=== PATIENT | male | born 1955 | race Caucasian/White ===

== ENCOUNTER 2020-02-26 10:38 | Outpatient (CLI) | payer SELFPAY ==
[2020-02-26 10:48] LABS: Basophils Absolute Auto 0.03 K/mm3 (0.00-0.10); Basophils Percent Auto 0.5 % (0.0-1.0); Eosinophils Absolute Auto 0.19 K/mm3 (0.02-0.50); Eosinophils Percent Auto 3.1 % (1.0-6.0); Hematocrit 41.5 % (37.0-46.0); Hemoglobin 13.8 g/dL (12.4-15.3); Immature Granulocyte Absolute 0.01 K/mm3 (0.00-0.00); Immature Granulocyte Percent A 0.2 % (0.0-0.0); Lymphocytes Absolute Auto 1.56 K/mm3 (1.10-4.50); Lymphocytes Percent Auto 25.1 % (18.0-42.0); Mean Corpuscular HGB Conc 33.3 g/dL (32.0-36.0); Mean Corpuscular Hemoglobin 30.3 pg (27.0-31.0); Mean Platelet Volume 10.9 fl (8.7-11.0); Monocytes Percent Auto 6.4 % (2.0-11.0); Neutrophils Percent Auto 64.7 % (50.0-70.0); Platelet Count Result 252 K/mm3 (150-420); Red Blood Count 4.56 M/mm3 (4.70-6.10); Red Cell Distribution Width 13.2 % (11.6-14.4); White Blood Count 6.2 K/mm3 (4.8-10.8)
[2020-02-26 12:04] LABS: Alanine Aminotransferase 29 U/L (16-63); Albumin Level 4.3 g/dL (3.4-5.0); Alkaline Phosphatase 56 U/L (46-116); Anion Gap 10 mmol/L (8-16); Aspartate Amino Transferase 14 U/L (15-37); Bilirubin,Total 0.8 mg/dL (0.00-1.00); Blood Urea Nitrogen 28 mg/dL (7-18); Calcium 9.2 mg/dL (8.5-10.1); Carbon Dioxide 27 mmol/L (21-32); Chloride 102 mmol/L (98-108); Cholesterol 147 mg/dL (0-200); Estimated Glomerular Filt Rate > 60; Glucose 95 mg/dL (70-99); HDL Direct 43 mg/dL (40-60); LDL Cholesterol Calculated 80 mg/dL (<130); Osmolality Calculated 293 mOsm/kg (285-295); Potassium 4.4 mmol/L (3.5-5.1); Sodium 139 mmol/L (136-145); Total Protein 6.9 g/dL (6.4-8.2); Triglycerides 122 mg/dL (0-150); Uric Acid 6.8 mg/dL (3.5-7.2)
[2020-02-26 12:16] LABS: Thyroid Stimulating Hormone Reflex 0.81 u/IU/mL (0.36-3.74)
== END 2020-02-26 10:39 | disposition home or self-care (01) ==
PROVIDERS: PCP Family Medicine; Visit Provider Family Medicine
DX: I10 Essential (primary) hypertension (principal); M10.9 Gout, unspecified; E78.5 Hyperlipidemia, unspecified
CPT/HCPCS: 36415; 80053; 80061; 84443; 84550; 85025

== ENCOUNTER 2020-10-13 08:38 | Emergency (ER) | payer SELFPAY ==
--- NOTE | ~2020-10-13 | CT_ITS ---
EXAMINATION: CT abdomen pelvis w con DATE: 10/13/2020 10:14 INDICATION: Left lower quadrant abdominal pain TECHNIQUE: Computed tomography (CT) of the abdomen and pelvis was performed with 100 mL Omnipaque-350 intravenous contrast. Automated exposure control and iterative reconstruction technique were employe d. The dose-length product was 547.15 mGy-cm. COMPARISON: 11/10/2016 FINDINGS: Mild bronchiectasis in the bilateral lower lobes. Heart size is normal. No pericardial or pleural eff usion. Liver and bilateral adrenal glands are normal. Tiny intraluminal density in the gallbladder li shanell representing a gallstone. The contour at the fundus of the gallbladder suggests an additional ga llstone. No gallbladder wall thickening or cholecystic inflammatory change to suggest acute cholecyst itis. Multiple <5 mm low-attenuation lesions scattered throughout the spleen which could represent cy sts, hemangiomas or granulomatous disease. Likely benign 9 mm lesion at the tip of the pancreas, unch anged in size since 2017 and now with rim calcification. Bilateral low-attenuation renal cysts measur ing 4 cm on the left and 1 cm on the right. A couple small regions of cortical scarring at the upper pole of the right kidney likely sequela of prior infection or infarction. Small gas-filled duodenal d iverticulum arising from the second portion of the duodenum along the posterior margin of the head of the pancreas. Numerous diverticula along the descending and sigmoid colon. There is prominent inflam matory stranding surrounding a diverticulum at the junction of the descending and sigmoid colon consi stent with diverticulitis. No abscess or free intraperitoneal gas or fluid. Small bowel and appendix are normal. Bladder is normal. Prostatomegaly suggested however visualization is poor due to prominen t metallic streak artifact in the lower pelvis pelvis related internal fixation at the proximal right femur, across the bilateral superior pubic rami and around the left acetabulum related to old healed fractures. Additional metallic streak artifact more cephalad in the pelvis related to screw fixation s across the bilateral sacroiliac joints. Small fat-containing left inguinal hernia. No pathologicall y enlarged abdominal or pelvic lymphadenopathy. Severe lumbar spondylosis. IMPRESSION: 1. Radiographically uncomplicated diverticulitis. 2. Cholelithiasis. 3. Prostatomegaly. Reviewed, dictated and finalized at location A.
[2020-10-13 08:45] VITALS: BP 143/71; PULSE 68; RESP 17; TEMP 36.7; O2SAT 98
--- NOTE | 2020-10-13 09:13 | ECG_ITS ---
Measurements Intervals [place] Rate: 60 P: 39 MT: 211 QRS: -19 QRSD: 126 T: -22 QT: 415 QTc: 415 Interpretive Statements SINUS RHYTHM WITH FIRST DEGREE AV BLOCK EARLY PRECORDIAL R/S TRANSITION POSSIBLE LEFT VENTRICULAR HYPERTROPHY ST-T WAVE ABNORMALITY IN INFERIOR LEADS- CONSIDER ISCHEMIA ABNORMAL ECG Electronically Signed On 10-13-2020 10:23:55 CDT by Jose Herrmann D.O.
[2020-10-13 09:20] LABS: Add Urine Microscopic? NO; Appearance Urine Clear (Clear); Bilirubin Urine Negative (Negative); Blood Urine Negative (Negative); Color Urine Light Yellow (Yellow); Glucose Urine UA Negative (Negative); Ketones Urine Negative (Negative); Leukocyte Esterase Ur Negative (Negative); Nitrate Urine Negative (Negative); Protein Urine Negative (Negative); Specific Grav Ur 1.025 (1.010-1.020); Urobilinogen Urine 0.2 mg/dL (0.2-1.0); pH Urine 5.5 (5.0-8.0)
[2020-10-13 09:31] LABS: Basophils Absolute Auto 0.03 K/mm3 (0.00-0.10); Basophils Percent Auto 0.3 % (0.0-1.0); Eosinophils Absolute Auto 0.17 K/mm3 (0.02-0.50); Eosinophils Percent Auto 1.7 % (1.0-6.0); Hematocrit 38.1 % (37.0-46.0); Hemoglobin 12.7 g/dL (12.4-15.3); Immature Granulocyte Absolute 0.03 K/mm3 (0.00-0.00); Immature Granulocyte Percent A 0.3 % (0.0-0.0); Lymphocytes Absolute Auto 1.27 K/mm3 (1.10-4.50); Lymphocytes Percent Auto 12.6 % (18.0-42.0); Mean Corpuscular HGB Conc 33.3 g/dL (32.0-36.0); Mean Corpuscular Hemoglobin 30.1 pg (27.0-31.0); Mean Corpuscular Volume 90.3 fL (78.0-102.0); Mean Platelet Volume 10.4 fl (8.7-11.0); Monocytes Absolute Auto 0.67 K/mm3 (0.10-0.90); Monocytes Percent Auto 6.6 % (2.0-11.0); Neutrophils Absolute Auto 7.9 K/mm3 (1.7-7.2); Neutrophils Percent Auto 78.5 % (50.0-70.0); Platelet Count Result 233 K/mm3 (150-420); Red Blood Count 4.22 M/mm3 (4.70-6.10); Red Cell Distribution Width 13.5 % (11.6-14.4); White Blood Count 10.1 K/mm3 (4.8-10.8)
[2020-10-13 09:46] LABS: Partial Thromboplastin Time 29.1 SEC (23.90-30.70); Prothrombin Time 10.4 Seconds (9.50-12.10)
[2020-10-13 09:52] LABS: Lactic Acid Reflex 1.6 mmol/L (0.4-2.0)
[2020-10-13 09:53] LABS: Alanine Aminotransferase 27 U/L (16-63); Albumin Level 3.7 g/dL (3.4-5.0); Alkaline Phosphatase 83 U/L (46-116); Anion Gap 13 mmol/L (8-16); Aspartate Amino Transferase 18 U/L (15-37); Bilirubin,Total 0.5 mg/dL (0.00-1.00); Blood Urea Nitrogen 22 mg/dL (7-18); Calcium 9.1 mg/dL (8.5-10.1); Carbon Dioxide 25 mmol/L (21-32); Chloride 101 mmol/L (98-108); Estimated Glomerular Filt Rate > 60; Glucose 102 mg/dL (70-99); Lipase 79 U/L (73-393); NT Pro B Type Natriuretic Pept 58 pg/mL (0-125); Osmolality Calculated 291 mOsm/kg (285-295); Potassium 3.9 mmol/L (3.5-5.1); Sodium 139 mmol/L (136-145); Total Protein 7.2 g/dL (6.4-8.2)
--- NOTE | 2020-10-13 10:52 | ED.ABDPAIN ---
HPI - Abdominal Pain General Chief Complaint: Abdominal Pain Stated Complaint: ABD PAIN Source: patient Mode of arrival: ambulatory History of Present Illness HPI narrative: this is a 64-year-old gentleman with past medical history Of CHF, presents with left lower quadrant pain is been going on for the last 3 days off and on currently is pain levels about a 2 or 3/10 peers comfortable with no nausea vomiting no fever chills no diarrhea or constipation no dysuria no hematuria. the pain localized to the left lower quadrant with no radiation no chest pain no shortness of breath. MD elicited complaint: abdominal pain Pertinent past history: diverticulitis Onset (ago): day(s) Pain Consistency: intermittent Location: LLQ Severity: mild Related Data Home Medications Medication Instructions Recorded Confirmed ibuprofen 200 mg-diphenhydramine 1 cap PO ONCE PRN 11/05/19 10/13/20 HCl 25 mg capsule aspirin 81 mg tablet,delayed 81 mg PO DAILY 06/24/20 10/13/20 release Allergies Allergy/AdvReac Type Severity Reaction Status Date / Time No Known Allergies Allergy Verified 06/24/20 08:16 Review of Systems Review of Systems: All systems reviewed & are unremarkable except as noted in HPI and below PMFSH Past Medical History Medical History (Updated 10/13/20 @ 10:56 by Jose Inman MD) Aortic valve insufficiency CHF (congestive heart failure) Erectile dysfunction Genital warts Hyperlipidemia Hypertension Vitamin D deficiency Surgical History Surgical History History of meniscectomy of left knee Repair 2002 Family History Family History Mother Family history of type 2 diabetes mellitus Father Hypertension Brother Family history of coronary artery disease Mother Diabetes mellitus Father Hypertension Social History Social History Smoking status: Never smoker Alcohol intake: current Drinks per week: 2 Substance use: never Substance use type: does not use 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 Exam Const: General: no acute distress Orientation/consciousness: patient oriented x3 HENMT: Head: normal to inspection and contusion Eyes: Conjunctivae: conjunctivae normal Pupils: Equal, round and reactive pupils present EOM: EOMs intact bilaterally Neck: Neck: normal visual inspection, no lymphadenopathy and no meningeal signs Chest: Chest palpation & inspection: normal inspection of the chest Resp: Effort & Inspection: normal respiratory effort Auscultation: clear to auscultation bilaterally Cardio: Rate: regular rate Rhythm: regular rhythm GI: GI Palp: Yes Soft to palpation and Yes Tenderness to palpation present (GI) ( left lower quadrant) Percussion: Yes normal to percussion : Testes: Testes normal Back/Spine/Pelvis: Back: no CVA tenderness Skin: General skin exam: normal color Rashes: no rashes Neuro: General: patient oriented x3, moves all extremities, no meningeal signs and no focal motor deficits Extrem: General: normal to inspection and no pedal edema Psych: Appearance: grossly normal Affect: normal affect Attitude: cooperative Course Course Emergency Course: blood work and CT scan were reviewed with patient the patient declined any pain medication and advised the patient to take medication was sent to his pharmacy. And follow-up with primary care physician. Vital Signs Vital signs: Vital Signs Temperature 36.7 C 10/13/20 08:45 Pulse Rate 68 10/13/20 08:45 Respiratory Rate 17 10/13/20 08:45 Blood Pressure 143/71 H 10/13/20 08:45 Pulse Oximetry 98 10/13/20 08:45 Temperature 36.7 C 10/13/20 08:45 Pulse Rate 68 10/13/20 08:45 Respiratory Rate 17 10/13/20 08:45 Blood Pressure 143/71 H 10/13/20 08:45 Pulse Oximetry 98
[2020-10-13 11:05] VITALS: PULSE 65; O2SAT 99
== END 2020-10-13 11:05 | disposition home or self-care (01) ==
PROVIDERS: Emergency Provider Emergency Medicine; PCP Nurse Practitioner Family
DX: K57.92 Diverticulitis of intestine, part unspecified, without perforation or abscess without bleeding (principal)
CPT/HCPCS: 36415; 74177; 80053; 81003; 83605; 83690; 83880; 85025; 85610; 85730; 93005; 99283; 99284; Q9967

== ENCOUNTER 2021-08-27 20:50 | Emergency (ER) | payer SELFPAY ==
[2021-08-27 20:50] VITALS: BP 133/70; PULSE 100; RESP 20; TEMP 37; O2SAT 95
--- NOTE | 2021-08-27 21:14 | ED.EXTPRO ---
HPI - Extremity Problem General Chief complaint: Extremity Injury, Lower Stated complaint: rt knee pain Time Seen by Provider: 08/27/21 21:07 Source: patient and RN notes reviewed Mode of arrival: ambulatory Limitations: no limitations History of Present Illness Complaint: joint swelling (right knee) Onset (ago): day(s) (3) Pain Consistency: constant Location: right and knee Quality: burning, aching and dull Radiation: none Relieving factors: nothing Exacerbating factors: range of motion, weight bearing and walking Associated symptoms: denies other symptoms Related Data Home Medications Medication Instructions Recorded Confirmed aspirin 81 mg PO EVERY OTHER DAY 08/27/21 08/27/21 Allergies Allergy/AdvReac Type Severity Reaction Status Date / Time No Known Allergies Allergy Verified 10/29/20 07:15 Review of Systems Review of Systems: All systems reviewed & are unremarkable except as noted in HPI and below PMFSH Past Medical History Medical History (Updated 08/27/21 @ 22:11 by Frank Coffman MD) Aortic valve insufficiency CHF (congestive heart failure) Erectile dysfunction Genital warts Hyperlipidemia Hypertension Vitamin D deficiency Surgical History Surgical History History of meniscectomy of left knee Repair 2002 Family History Family History Mother Family history of type 2 diabetes mellitus Father Hypertension Brother Family history of coronary artery disease Mother Diabetes mellitus Father Hypertension Social History Social History Smoking status: Never smoker Alcohol intake: current Drinks per week: 2 Substance use: never Substance use type: does not use 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 Exam Const: General: healthy appearing, no acute distress and alert Nutritional Appearance: well nourished and thin Orientation/consciousness: patient oriented x3 HENMT: Head: normal to inspection Ears: external ears normal Eyes: Conjunctivae: conjunctivae normal Pupils: Equal, round and reactive pupils present EOM: EOMs intact bilaterally Neck: Neck: normal visual inspection Resp: Effort & Inspection: normal respiratory effort Auscultation: clear to auscultation bilaterally Cardio: Rate: regular rate Rhythm: regular rhythm GI: GI Palp: Yes Soft to palpation and No Tenderness to palpation present (GI) Auscultation: normal bowel sounds Back/Spine/Pelvis: Cervical Spine: cervical ROM normal Thoracic/Lumbar Spine: thoraco-lumbar ROM normal Skin: General skin exam: normal color Rashes: no rashes Neuro: General: patient oriented x3, moves all extremities, no meningeal signs, no focal motor deficits and CN's II-XI intact bilaterally Speech: normal speech Extrem: General: normal exam except as noted Right lower extremity: knee Details: tenderness Location: of the patella, swelling Location: of the patella and warmth Location: of the entire knee joint (with erythema) Psych: Appearance: grossly normal and well kempt Mental Status: mental status grossly normal Affect: normal affect Attitude: cooperative Thought content: Yes Normal thought content present Discharge Plan Discharge Clinical Impression: Gout Qualifiers: Gout site: knee Gout etiology: idiopathic Chronicity: acute Laterality: right Qualified Code(s): 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 Prescriptions: New indomethacin 75 mg capsule, extended release 75 mg PO DAILY Qty: 10 RF: 0 No Action aspirin 81 mg tablet,delayed release (DR/EC) 81 mg PO EVERY OTHER DAY RF: 0 atorvastatin
[2021-08-27 21:35] LABS: Hematocrit 37.8 % (37.0-46.0); Hemoglobin 12.5 g/dL (12.4-15.3); Mean Corpuscular HGB Conc 33.1 g/dL (32.0-36.0); Mean Corpuscular Hemoglobin 30.6 pg (27.0-31.0); Mean Corpuscular Volume 92.6 fL (78.0-102.0); Mean Platelet Volume 11.1 fl (8.7-11.0); Platelet Count Result 236 K/mm3 (150-420); Red Blood Count 4.08 M/mm3 (4.70-6.10); Red Cell Distribution Width 13.7 % (11.6-14.4); White Blood Count 12.1 K/mm3 (4.8-10.8)
[2021-08-27 21:48] LABS: Uric Acid 8.7 mg/dL (3.5-7.2)
[2021-08-27 21:49] LABS: CRP < 0.2 mg/dL (0.0-0.9)
[2021-08-27] MEDS: KETOROLAC (*BKC) 60 MG/2 ML VIAL IM (21:59)
[2021-08-27 22:05] VITALS: BP 132/80; PULSE 98; RESP 20; TEMP 36.6; O2SAT 95
== END 2021-08-27 22:08 | disposition home or self-care (01) ==
LOC: CHSED 20:52
PROVIDERS: Emergency Provider Emergency Medicine; PCP Nurse Practitioner Family
DX: M10.061 Idiopathic gout, right knee (principal); I50.9 Heart failure, unspecified; E78.5 Hyperlipidemia, unspecified; I10 Essential (primary) hypertension
CPT/HCPCS: 36415; 84550; 85027; 86140; 96372; 99283; J1885

== ENCOUNTER 2022-10-18 09:20 | Outpatient (CLI) | payer MEDICARE, SELFPAY ==
[2022-10-18 09:34] LABS: Basophils Absolute Auto 0.04 K/mm3 (0.00-0.10); Basophils Percent Auto 0.5 % (0.0-1.0); Eosinophils Absolute Auto 0.17 K/mm3 (0.02-0.50); Eosinophils Percent Auto 2.3 % (1.0-6.0); Hematocrit 39.2 % (37.0-46.0); Immature Granulocyte Absolute 0.02 K/mm3 (0.00-0.00); Immature Granulocyte Percent A 0.3 % (0.0-0.0); Lymphocytes Absolute Auto 1.59 K/mm3 (1.10-4.50); Lymphocytes Percent Auto 21.8 % (18.0-42.0); Mean Corpuscular HGB Conc 33.2 g/dL (32.0-36.0); Mean Corpuscular Hemoglobin 30.3 pg (27.0-31.0); Mean Corpuscular Volume 91.4 fL (78.0-102.0); Mean Platelet Volume 10.8 fl (8.7-11.0); Monocytes Absolute Auto 0.39 K/mm3 (0.10-0.90); Monocytes Percent Auto 5.3 % (2.0-11.0); Neutrophils Absolute Auto 5.1 K/mm3 (1.7-7.2); Neutrophils Percent Auto 69.8 % (50.0-70.0); Platelet Count Result 246 K/mm3 (150-420); Red Blood Count 4.29 M/mm3 (4.70-6.10); Red Cell Distribution Width 13.8 % (11.6-14.4); White Blood Count 7.3 K/mm3 (4.8-10.8)
[2022-10-18 10:24] LABS: Alanine Aminotransferase 30 U/L (16-63); Alkaline Phosphatase 85 U/L (46-116); Anion Gap 9 mmol/L (8-16); Aspartate Amino Transferase 18 U/L (15-37); Bilirubin,Total 0.7 mg/dL (0.00-1.00); Blood Urea Nitrogen 19 mg/dL (7-18); Calcium 9.1 mg/dL (8.5-10.1); Carbon Dioxide 28 mmol/L (21-32); Chloride 104 mmol/L (98-108); Cholesterol 170 mg/dL (0-200); Estimated Glomerular Filt Rate > 60; Glucose 93 mg/dL (70-99); HDL Direct 40 mg/dL (40-60); LDL Cholesterol Calculated 78 mg/dL (<130); NT Pro B Type Natriuretic Pept 44 pg/mL (0-125); Osmolality Calculated 294 mOsm/kg (285-295); Potassium 4.1 mmol/L (3.5-5.1); Sodium 141 mmol/L (136-145); Total Protein 7.1 g/dL (6.4-8.2); Triglycerides 258 mg/dL (0-150)
[2022-10-23 06:43] LABS: Vitamin D 25 Hydroxy 37 ng/mL (30-100)
== END 2022-10-18 09:21 | disposition home or self-care (01) ==
LOC: CHSLAB 09:23
PROVIDERS: PCP Nurse Practitioner Family; Visit Provider Nurse Practitioner Family
DX: I10 Essential (primary) hypertension (principal); E78.5 Hyperlipidemia, unspecified; E55.9 Vitamin D deficiency, unspecified; Z79.899 Other long term (current) drug therapy; I50.9 Heart failure, unspecified
CPT/HCPCS: 36415; 80053; 80061; 82306; 83880; 85025

== ENCOUNTER 2023-03-29 13:06 | Outpatient (NON) | payer MEDICARE, SELFPAY | END 2023-03-29 13:07 | disposition home or self-care (01) | LOC: CHSLAB 13:08 | PROVIDERS: Visit Provider Family Medicine | DX: D48.5 Neoplasm of uncertain behavior of skin (principal) | CPT/HCPCS: 88305 ==

== ENCOUNTER 2024-02-07 08:39 | Emergency (ER) | payer MEDICARE, SELFPAY ==
--- NOTE | ~2024-02-07 | XR_ITS ---
EXAMINATION: XR foot LT min 3V DATE: 02/07/2024 09:25 INDICATION: Generalized left foot pain TECHNIQUE: Dorsoplantar, two oblique and lateral views of the left foot were obtained. COMPARISON: None. FINDINGS: First tarsal metatarsal arthrodesis fixed with 2 screws. Old healed fractures at the necks of the lef t second-fourth metatarsals. There is also flattening of the articular surface at the head of the sec ond metatarsal consistent with chronic osteonecrosis/Freiberg's infraction. Polyarticular osteoarthri tis, moderate severity at the second tarsal metatarsal, first metatarsophalangeal and third proximal interphalangeal joints and mild at majority the remaining joints in the left foot. Small Achilles hubert caneal spur. Mild soft tissue swelling over the dorsum of the foot. IMPRESSION: 1. First tarsal metatarsal arthrodesis with screw fixation and old healed fractures of the necks of t he second-fourth metatarsal. No acute osseous abnormality. 2. Mild to moderate polyarticular osteoarthritis in the left foot. Reviewed, dictated and finalized at location A. IMPRESSION: 1. First tarsal metatarsal arthrodesis with screw fixation and old healed fract ures of the necks of the second-fourth metatarsal. No acute osseous abnormality . 2. Mild to moderate polyarticular osteoarthritis in the left foot.
[2024-02-07 08:44] VITALS: BP 129/71; PULSE 61; RESP 20; TEMP 36.6; O2SAT 96
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
[2024-02-07 09:31] LABS: Basophils Absolute Auto 0.03 K/mm3 (0.00-0.10); Basophils Percent Auto 0.3 % (0.0-1.0); Eosinophils Absolute Auto 0.53 K/mm3 (0.02-0.50); Eosinophils Percent Auto 5.3 % (1.0-6.0); Hematocrit 37.3 % (37.0-46.0); Hemoglobin 12.5 g/dL (12.4-15.3); Immature Granulocyte Absolute 0.01 K/mm3 (0.00-0.00); Immature Granulocyte Percent A 0.1 % (0.0-0.0); Lymphocytes Absolute Auto 1.23 K/mm3 (1.10-4.50); Lymphocytes Percent Auto 12.3 % (18.0-42.0); Mean Corpuscular HGB Conc 33.5 g/dL (32-36); Mean Corpuscular Hemoglobin 30.4 pg (27.0-31.0); Mean Corpuscular Volume 90.8 fL (78.0-102.0); Mean Platelet Volume 10.8 fl (8.7-11.0); Monocytes Absolute Auto 0.55 K/mm3 (0.10-0.90); Monocytes Percent Auto 5.5 % (2.0-11.0); Neutrophils Absolute Auto 7.63 K/mm3 (1.70-7.20); Neutrophils Percent Auto 76.5 % (50.0-70.0); Platelet Count Result 254 K/mm3 (150-420); Red Blood Count 4.11 M/mm3 (4.70-6.10); Red Cell Distribution Width 14.1 % (11.6-14.4)
[2024-02-07 09:55] LABS: Lactic Acid Reflex 1.2 mmol/L (0.4-2.0)
[2024-02-07 10:01] LABS: Alanine Aminotransferase 21 U/L (16-63); Albumin Level 3.4 g/dL (3.4-5.0); Alkaline Phosphatase 107 U/L (46-116); Anion Gap 7 mmol/L (4-12); Aspartate Amino Transferase 12 U/L (15-37); Bilirubin,Total 0.7 mg/dL (0.00-1.00); Blood Urea Nitrogen 24 mg/dL (7-18); Calcium 9.3 mg/dL (8.5-10.1); Carbon Dioxide 28 mmol/L (21-32); Chloride 101 mmol/L (98-108); Estimated CRCL calculation 54 ml/min; Estimated Glomerular Filt Rate > 60; Glucose 112 mg/dL (70-99); Osmolality Calculated 287 mOsm/kg (285-295); Potassium 4.3 mmol/L (3.5-5.1); Sodium 136 mmol/L (136-145); Total Protein 7.3 g/dL (6.4-8.2)
[2024-02-07 10:03] LABS: Uric Acid 7.8 mg/dL (3.5-7.2)
[2024-02-07 10:27] VITALS: BP 130/66; PULSE 72; RESP 20; TEMP 36.8; O2SAT 98
== END 2024-02-07 10:27 | disposition home or self-care (01) ==
PROVIDERS: Emergency Provider Internal Medicine Critical Care Medicine; PCP Nurse Practitioner Family
DX: M10.272 Drug-induced gout, left ankle and foot (principal); I11.0 Hypertensive heart disease with heart failure; I50.9 Heart failure, unspecified; E78.5 Hyperlipidemia, unspecified
CPT/HCPCS: 36415; 73630; 80053; 83605; 84550; 85025; 99283

== ENCOUNTER 2024-03-13 17:17 | Outpatient (CLI) | payer MEDICARE, SELFPAY ==
--- NOTE | ~2024-03-13 | XR_ITS ---
EXAMINATION: XR foot LT min 3V DATE: 03/13/2024 17:52 INDICATION: Left foot pain. TECHNIQUE: 4 views of left foot were obtained. COMPARISON: Left foot radiographs 02/07/2024 FINDINGS: Alignment is normal. No acute fracture. There are old healed fractures of the necks of the second, third, and fourth metatarsals. There are changes of fusion procedure of first tarsometatarsal joint with 2 screws. There is mild osteoarthritis of first metatarsophalangeal joint and some of the interphalangeal joints and midfoot joints. There are enthesophytes at the posterior and plantar aspe cts of calcaneal tuberosity. IMPRESSION: 1. Mild polyarticular osteoarthritis. 2. Fusion procedure of first tarsometatarsal joint. Reviewed, dictated and finalized at location A. CUSTOMIZER
--- NOTE | ~2024-03-13 | XR_ITS ---
EXAMINATION: XR hip LT min 2V DATE: 03/13/2024 17:52 INDICATION: Left hip pain. TECHNIQUE: 2 views of left hip were obtained. COMPARISON: None. FINDINGS: Alignment is normal. No fracture. Osteitis pubis is noted. There is plate and screw fixatio n of the pubic symphysis with fracture of the plate and one of the screws. There is plate-screw fixat ion of left acetabulum. There is screw fixation of the bilateral sacroiliac joints. There is severe l eft hip osteoarthritis. IMPRESSION: 1. Severe left hip osteoarthritis. 2. Fusion procedure of the pubic symphysis with hardware failure. Reviewed, dictated and finalized at location A. DEVELOPER
== END 2024-03-13 17:18 | disposition home or self-care (01) ==
PROVIDERS: PCP Family Medicine; Visit Provider Family Medicine
DX: M25.552 Pain in left hip (principal); M79.672 Pain in left foot; M19.072 Primary osteoarthritis, left ankle and foot; M16.12 Unilateral primary osteoarthritis, left hip; Z98.890 Other specified postprocedural states
CPT/HCPCS: 73502; 73630

== ENCOUNTER 2024-06-27 08:22 | Outpatient (CLI) | payer MEDICARE, SELFPAY ==
--- NOTE | ~2024-06-27 | NM_ITS ---
EXAMINATION: NM krissy stress w perfusion DATE: 06/27/2024 11:33 INDICATION: Encounter for preprocedural cardiac device for exam TECHNIQUE: Rest images were obtained following intravenous administration of 9.7 mCi Tc99m tetrofosmi n (Myoview). The patient was infused intravenously with Lexiscan (Regadenoson). Then, 29.8 mCi Tc99m tetrofosmin (Myoview) was administered intravenously, and stress images were obtained initially in th e supine position with repeat post stress imaging obtained in the prone position. Data was reconstruc charles into short axis and horizontal and vertical long axis SPECT images. Gated SPECT images were also obtained. COMPARISON: None. FINDINGS: There is decreased activity at the apex and along portions of the inferior and inferolatera l ware on both the rest and post stress imaging obtained in the supine position. Significant portion s of this normalize on the post stress imaging obtained in the prone position consistent with diaphra gmatic attenuation artifact. There is small region of residual mild decreased uptake along the apical inferior and mid inferolateral segments on the prone imaging and although could not exclude small in farct is more likely represents residual attenuation artifact. There is normal left ventricular rosales sukhjinder size, wall motion and ejection fraction. Left ventricular ejection fraction measures 62%. IMPRESSION: 1. Likely diaphragmatic attenuation artifact at the apex and along portions of the inferior and infer olateral ware on rest and post stress imaging obtained in the supine position which largely normaliz ed on the post stress imaging in the prone position. Residual small region of mild decreased activity at the apical inferior and mid inferolateral segments of likely represents residual attenuation brittany fact although small mild infarct is not absolutely excludable. 2. Left ventricular ejection fraction measuring 62%. Reviewed, dictated and finalized at location L. OR HOUSEKEEPER IMPRESSION: 1. Likely diaphragmatic attenuation artifact at the apex and along portions of the inferior and inferolateral ware on rest and post stress imaging obtained i n the supine position which largely normalized on the post stress imaging in th e prone position. Residual small region of mild decreased activity at the apica l inferior and mid inferolateral segments of likely represents residual attenua tion artifact although small mild infarct is not absolutely excludable. 2. Left ventricular ejection fraction measuring 62%.
--- NOTE | 2024-06-27 08:30 | ECHO_ITS ---
Patient Info Name: Amari Lorenzana Age: 68 years : 1955 Gender: Male Ht: 68 in Wt: 168 lbs BSA: 1.92 m2 HR: 62 bpm BP: 122 / 70 mmHg Technical Quality: Good Exam Date: 06/27/2024 9:03 AM Exam Location: Echo Lab Patient Status: Outpatient Admit Date: 06/27/2024 Staff Ordering Physician: Jose Herrmann DO Mineralogy Teacher: Aleah Tripathi RDCS Attending Provider: Jose Herrmann DO Referring Physician: Montez CARRINGTON; Exam Type: CA echo doppler color flow Study Info Indications - Dyspnea Complete two-dimensional, color flow and Doppler transthoracic echocardiogram is performed. Summary 1. Complete two-dimensional, color flow and Doppler transthoracic echocardiogram is performed. 2. Left ventricular chamber dimension is normal. 3. Left ventricular systolic function is normal, estimated at 60-65%. 4. There is moderate concentric increased left ventricular wall thickness. 5. The left ventricular diastolic function is grade I diastolic dysfunction. 6. E/e' 8 is minimally elevated. 7. There is moderate aortic valve sclerosis. 8. There is mild aortic valve regurgitation. 9. The mitral valve has mildly calcified annulus. 10. There is mild tricuspid valve regurgitation. 11. No pulmonary hypertension, estimated pulmonary arterial systolic pressure is 30 mmHg. 12. There is mild pulmonic regurgitation. 13. The aortic root size at the sinus of Valsalva is borderline dilated at 4.1 cm. Left Ventricle E/e' 8 is minimally elevated. Left ventricular chamber dimension is normal. Left ventricular systolic function is normal, estimated at 60-65%. There is moderate concentric increased left ventricular wall thickness. The left ventricular diastolic function is grade I diastolic dysfunction. Right Ventricle Right ventricular systolic function is normal and with normal TAPSE 2.0 cm. Right ventricular chamber dimension is normal. Left Atria Left atrial chamber dimension is normal. Right Atria Right atrial chamber dimension is normal. Aortic Valve The aortic valve is trileaflet. There is moderate aortic valve sclerosis. There is no aortic valve stenosis. There is mild aortic valve regurgitation. Pulmonic Valve There is mild pulmonic regurgitation. Mitral Valve The mitral valve has mildly calcified annulus. There is no mitral valve stenosis. There is no mitral valve regurgitation. Tricuspid Valve There is mild tricuspid valve regurgitation. No pulmonary hypertension, estimated pulmonary arterial systolic pressure is 30 mmHg. Pericardium/Pleural There is no pericardial effusion. Inferior Vena Cava Normal inferior vena cava with >50% collapse upon inspiration consistent with normal right atrial pressure, 5 mmHg. Aorta The aortic root size at the sinus of Valsalva is borderline dilated at 4.1 cm. Left Ventricular Outflow Tract Name Value Normal LVOT 2D LVOT Diameter 2.2 cm LVOT Doppler LVOT Peak Gradient 11 mmHg LVOT Mean Gradient 5 mmHg LVOT VTI 34 cm LVOT VTI/AV VTI Ratio 1.0 LVOT Stroke Volume 135 ml LVOT CO 24.2 l/min LVOT CI 12.6 l/min/m2 Pulmonic Valve Name Value Normal PV Doppler PV Peak Gradient 4 mmHg Mitral Valve Name Value Normal MV Doppler MV Decel Harper 385 cm/s2 MV PHT 51 ms MV Area (PHT) 4.3 cm2 4.0-5.0 MV Diastolic Function MV E Peak Velocity 68 cm/s MV A Peak Velocity 77 cm/s MV E/A 0.9 MV Decel Time 176 ms MV Annular TDI MV E/e' (Septal) 9.5 <=8.0 MV E/e' (Lateral) 7.7 <=8.0 MV E/e' (Average) 8.6 Tricuspid Valve Name Value Normal TV Regurgitation Doppler TR Peak Velocity 248 cm/s TR Peak Gradient 25 mmHg Estimated PAP/RSVP RA Pressure 5 mmHg <=5 PA Systolic Pressure 30 mmHg <36 RV Systolic Pressure 30 mmHg <36 Aorta Name Value Normal Ascending Aorta Ao Root Diameter (MM) 4.1 cm Ao Root Diam Index (MM) 2.1 cm/m2 Aortic Valve Name Value Normal AV Doppler AV Peak Velocity 171 cm/s AV Peak Gradient 12 mmHg AV Mean Gradient 5 mmHg AV VTI 34 cm AV Area (Cont Eq VTI) 3.9 cm2 >=3.0 AV Area (Cont Eq Aleksandr) 3.8 cm2 AV Regurgitation 2D LVOT Area 3.9 cm2 AV Regurgitation Doppler AR Decel Time 3,558 ms AR Decel Harper 114 cm/s2 AR PHT 1,032 ms Ventricles Name Value Normal LV Dimensions 2D/MM IVS Diastolic Thickness (2D) 1.5 cm 0.6-1.0 LVID Diastole (2D) 4.6 cm 4.2-5.8 LVIW Diastolic Thickness (2D) 1.3 cm 0.6-1.0 LVID Systole (2D) 3.2 cm 2.5-4.0 LVOT Diameter 2.2 cm LV Mass (2D Cubed) 258.86 g 88.00-224.00 LV Mass Index (2D Cubed) 135 g/m2 49-115 Relative Wall Thickness (2D) 0.58 LV Fractional Shortening/Ejection Fraction 2D/MM LV Fractional Shortening (2D) 31 % 25-43 LV EF (2D Teicholz) 58 % 52-72 LV Diastolic Volume (4C MOD) 147 ml LV EF (4C MOD) 65 % LV Diastolic Volume (2C MOD) 144 ml LV EF (2C MOD) 61 % LV Diastolic Volume (BP MOD) 148 ml 62-150 LV Diastolic Volume Index (BP MOD) 77 ml/m2 34-74 LV Systolic Volume (BP MOD) 56 ml 21-61 LV Systolic Volume Index (BP MOD) 29 ml/m2 11-31 LV EF (BP MOD) 63 % 52-72 LV Diastolic Length (4C) 9.0 cm LV Systolic Length (4C) 7.0 cm LV Stroke Volume (4C MOD) 96 ml Atria Name Value Normal LA Dimensions LA Volume (4C A-L) 37 ml LA Volume (BP A-L) 45 ml RA Dimensions RA Area (4C) 14.6 cm2 <=18.0 Report Signatures
--- OUTSIDE RECORDS SUMMARY | 2024-06-27 08:38 | XMS_ITS | Clinical Summary ---
Author Organization [facility] Address [address] [place] [address] Care Team Providers Care Mule Packer Name Role Phone Maria Del Carmen Rico MD Primary Care Provider Allergies No known active allergies Medications allopurinoL (ZYLOPRIM) 100 mg tablet Take 1 tablet (100 mg total) by mouth 2 (two) times a day 03/12/2024 Active aspirin 81 mg enteric coated tablet Take 1 tablet (81 mg total) by mouth daily Active atorvastatin (LIPITOR) 80 mg tablet Take 1 tablet (80 mg total) by mouth daily 04/21/2024 Active clobetasoL (TEMOVATE) 0.05 % cream APPLY 1 (ONE) GRAM AT BEDTIME 02/09/2024 Active furosemide (LASIX) 40 mg tablet Take 1 tablet (40 mg total) by mouth daily Active lisinopriL (PRINIVIL,ZESTR IL) 10 mg tablet Take 1 tablet (10 mg total) by mouth daily Active meloxicam (MOBIC) 15 mg tablet Take 1 tablet (15 mg total) by mouth daily 04/09/2024 Active metoprolol tartrate (LOPRESSOR) 75 mg tablet immediate release tablet Take 1 tablet (75 mg total) by mouth daily 04/22/2024 Active spironolactone (ALDACTONE) 25 mg tablet Take 1 tablet (25 mg total) by mouth daily Active Active Problems Problem Noted Date Diagnosed Date Right hip pain 06/14/2024 Primary osteoarthritis of right hip 06/14/2024 Aortic insufficiency 04/30/2024 Hyperlipidemia 04/30/2024 Hypertension 04/30/2024 Fracture of foot 11/12/2008 Fracture of pelvis 11/12/2008 Closed fracture of femur 11/12/2008 Carpal tunnel syndrome 11/12/2008 Encounters Date Type Department Care Team Description 06/14/2024 Orders Only [facility] Orthopaedic Surgery [address]th [place] [address] [place] [address] Jez Phillip MD Left hip pain (Primary Dx) 04/30/2024 2:58 PM DEVELOPER EVANGELIST - 04/30/2024 11:59 PM DEVELOPER EVANGELIST Hospital Encounter [facility] [address] [place] [address] [address] [place] [address] Left hip pain Discharge Disposition: Discharge to home or self care 04/30/2024 2:30 PM DEVELOPER EVANGELIST Office Visit [facility] Orthopaedic Surgery [address] [place] [address] [address] [place] [phone] Jerry Tolentino MD Left hip pain (Primary Dx); 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, initial encounter 04/30/2024 12:25 PM DEVELOPER EVANGELIST [facility] [address] [place] [address] Left hip pain 04/30/2024 12:01 PM DEVELOPER EVANGELIST - 04/30/2024 11:59 PM DEVELOPER EVANGELIST Hospital Encounter [facility] [address] [place] [address] [address] [place] [phone] Left hip pain Discharge Disposition: Discharge to home or self care 04/30/2024 Orders Only [facility] Orthopaedic Surgery [address] [place] [address] 4 [address] [place] [phone] Jerry Tolentino MD Left hip pain (Primary Dx) from Last 3 Months Social History Tobacco Use Types Packs/Day Years Used Date Smoking Tobacco: Never Smokeless Tobacco: Never Tobacco Cessation:Counseling Given: Not Answered Sex and Gender Information Value Date Recorded Sex Assigned at Not on file Legal Sex Male 1:00 PM DEVELOPER EVANGELIST Gender Identity Not on file Sexual Orientation Not on file Obstetrics History Last Filed Vital Signs Vital Sign Reading Time Taken Comments Blood Pressure - - Pulse - - Temperature - - Respiratory Rate - - Oxygen Saturation - - Inhaled Oxygen Concentration - - Weight 75.2 kg (165 lb 12.8 oz) 04/30/2024 1:42 PM DEVELOPER EVANGELIST Height 170.2 cm (5' 7 ) 04/30/2024 1:42 PM DEVELOPER EVANGELIST Body Mass Index 25.97 04/30/2024 1:42 PM DEVELOPER EVANGELIST Plan of Treatment Upcoming Encounters Date Type Department Care Team (Latest Contact Info) Description 08/07/2024 1:20 PM CDT Hospital Encounter [facility] Operating Room [address] [place] [address] Jerry Tolentino MD [address] [place] [address] 08/07/2024 1:20 PM CDT - 08/07/2024 4:00 PM CDT Surgery [facility] Operating Room [address] [place] [address] Jerry Tolentino MD [address] [place] [address] ARTHROPLASTY TOTAL HIP - LINDA ROBOTIC ARM - DERIAN Scheduled Procedures Name Priority Associated Diagnoses Date/Ti me ARTHROPLASTY TOTAL HIP - LINDA ROBOTIC ARM - DERIAN Right hip pain Primary osteoarthritis of right hip 08/07/2024 1:20 PM CDT Health Maintenance Due Date Last Done Comments Colon Cancer Screening-Colonoscopy 1955 Depression Screening 1955 Fall Risk Assessment 1955 Hepatitis C Screening 1955 Prostate Cancer Screening-PSA 1955 DTaP/Tdap/Td Vaccine (1 - Tdap) 1965 Hepatitis B Screening 1972 Pneumococcal vaccine 65+ (1 of 1 - PCV) 2004 Zoster Vaccine (1 of 2) 2004 Well Visit 65+ 11/24/2019 Influenza Vaccine (#1) 2023 Procedures Procedure Name Priority Date/Time Associated Diagnosis Comments XR SPINE LUMBAR 2 OR 3 VIEWS Schedule Routine, Read Routine (OP Routine) 04/30/2024 3:12 PM DEVELOPER EVANGELIST Left hip pain ERYTHROCYTE SEDIMENTATION RATE Routine 04/30/2024 12:38 PM DEVELOPER EVANGELIST Left hip pain CRP (ACUTE PHASE) Routine 04/30/2024 12: 38 PM DEVELOPER EVANGELIST Left hip pain XR HIP LEFT W PELVIS 2 OR 3 VIEWS Schedule Routine, Read Routine (OP Routine) 04/30/2024 12:19 PM DEVELOPER EVANGELIST Left hip pain from Last 3 Months Results * XR Spine Lumbar 2 or 3 Views (04/30/2024 3:12 PM DEVELOPER EVANGELIST) Anatomical Region Laterality Modality Spine N/A Computed Radiogr aphy 04/30/2024 4:23 PM DEVELOPER EVANGELIST Impressions 04/30/2024 5:12 PM DEVELOPER EVANGELIST Multilevel severe lumbar degenerative disc disease. Dictated by: Jennifer Patel MD The radiology attending physician has personally reviewed this study, and had reviewed and/or edited this written report and agrees with it. Electronically signed by: Agustin Banerjee D.O. Narrative 04/30/2024 5:12 PM DEVELOPER EVANGELIST EXAMINATION: XR SPINE LUMBAR 2 OR 3 VIEWS HISTORY: Left hip pain. COMPARISON: Same day pelvis radiographs FINDINGS: Upright and sitting lateral views of the lumbar spine were obtained. Redemonstration of fractured pubic symphysis screw. Straightening of the normal lumbar lordosis in seated position. No listhesis. Multilevel lumbar degenerative disc disease, greatest and severe at L1-L2 and L5-S1. Lower lumbar facet arthropathy. No acute compression fracture. Partially evaluated internal fixation of the sacrum, pelvis and right proximal femur. Vascular calcifications. Procedure Note Agustin Banerjee, DO - 04/30/2024 EXAMINATION: XR SPINE LUMBAR 2 OR 3 VIEWS HISTORY: Left hip pain. COMPARISON: Same day pelvis radiographs FINDINGS: Upright and sitting lateral views of the lumbar spine were obtained. Redemonstration of fractured pubic symphysis screw. Straightening of the normal lumbar lordosis in seated position. No listhesis. Multilevel lumbar degenerative disc disease, greatest and severe at L1-L2 and L5-S1. Lower lumbar facet arthropathy. No acute compression fracture. Partially evaluated internal fixation of the sacrum, pelvis and right proximal femur. Vascular calcifications. IMPRESSION: Multilevel severe lumbar degenerative disc disease. Dictated by: Jennifer Patel MD The radiology attending physician has personally reviewed this study, and had reviewed and/or edited this written report and agrees with it. Electronically signed by: Agustin Banerjee D.O. Jerry Tolentino MD IMG XR PROCEDURES Fi nal Result * (ABNORMAL) Erythrocyte sedimentation rate (04/30/2024 12:38 PM DEVELOPER EVANGELIST) Erythrocyte sedimentation rate 26(H) 1 - 20 mm/hr Blood 04/30/2024 12:3 8 PM DEVELOPER EVANGELIST 04/30/2024 12:52 PM DEVELOPER EVANGELIST Jerry Tolentino MD LAB BLOOD ORDERABLES Final Result Performing Organization Address [facility] Phone Number [facility] [address] [facility] [place] [address] * CRP (acute phase) (04/30/2024 12:38 PM DEVELOPER EVANGELIST) Pathologist [facility] CRP <3.0 <=10.0 mg/L Blood 04/30/2024 12:3 8 PM DEVELOPER EVANGELIST 04/30/2024 12:52 PM DEVELOPER EVANGELIST Jerry Tolentino MD LAB BLOOD ORDERABLES Final Result Performing Organization Address [facility] Phone Number [facility] [address] [facility] [place] [address] * XR Hip Left 2 or 3 Views W Pelvis (04/30/2024 12:19 PM DEVELOPER EVANGELIST) Anatomical Region Laterality Modality Lower Extremities, Hip, Pelvis Left C omputed Radiography 04/30/2024 12:3 1 PM DEVELOPER EVANGELIST Impressions 04/30/2024 12:31 PM DEVELOPER EVANGELIST 1. 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 2. 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 Electronically signed by: Miguelito Felton MD Narrative 04/30/2024 12:31 PM DEVELOPER EVANGELIST EXAMINATION: XR HIP LEFT 2 OR 3 VIEWS W PELVIS HISTORY: Hip pain. FINDINGS: No comparison. Chronic internally fixated left acetabular fracture transfixed by multiple posterior plate and screw constructs. Left acetabular hardware is intact. Chronic superior pubic ramus/pubic body fractures transfixed by superior plate and screw construct with fracture of the plate and one of the screws. Healed right femoral shaft fracture with partially visualized, intact medullary nail. Bilateral sacroiliac screw fixation with 3 intact screws. Severe left hip osteoarthritis. Large ossific fragment along the inferior left hip. Procedure Note Miguelito Felton MD - 04/30/2024 EXAMINATION: XR HIP LEFT 2 OR 3 VIEWS W PELVIS HISTORY: Hip pain. FINDINGS: No comparison. Chronic internally fixated left acetabular fracture transfixed by multiple posterior plate and screw constructs. Left acetabular hardware is intact. Chronic superior pubic ramus/pubic body fractures transfixed by superior plate and screw construct with fracture of the plate and one of the screws. Healed right femoral shaft fracture with partially visualized, intact medullary nail. Bilateral sacroiliac screw fixation with 3 intact screws. Severe left hip osteoarthritis. Large ossific fragment along the inferior left hip. IMPRESSION: 1. 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 2. 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 Electronically signed by: Miguelito Felton MD Jerry Tolentino MD IMG XR PROCEDURES Fi nal Result from Last 3 Months Insurance MEDICARE SOLUTIONS MEDICARE SOLUTIONS Care Teams Mule Packer Relationship Specialty Start Date End Date Maria Del Carmen Rico MD [address] [place] [id number] PCP - General Family Medicine 03/18/24
--- OUTSIDE RECORDS SUMMARY | 2024-06-27 08:38 | XMS_ITS | Referral Summary ---
Author Organization [facility] Address [address] [place] [address] Care Team Providers Care Assembly Supervisor Name Role Phone Maria Del Carmen Rico MD Primary Care Provider Encounters Date Type Department Care Team Description 06/14/2024 Orders Only [facility] Orthopaedic Surgery [address] [facility] 6th [place] [address] [place] [phone] Jez Phillip MD Left hip pain (Primary Dx) 04/30/2024 2:58 PM EDUCATION FINANCE PROCESSOR - 04/30/2024 11:59 PM EDUCATION FINANCE PROCESSOR Hospital Encounter [facility] [address] [place] [address] [address] [place] [address] Left hip pain Discharge Disposition: Discharge to home or self care 04/30/2024 Orders Only [facility] Orthopaedic Surgery [address] [place] [address] Medical Office Building [address] [place] [address] Jerry Tolentino MD Left hip pain (Primary Dx) 04/30/2024 12:25 PM EDUCATION FINANCE PROCESSOR Lab [facility] [address] [place] [address] Left hip pain 04/30/2024 12:01 PM EDUCATION FINANCE PROCESSOR - 04/30/2024 11:59 PM EDUCATION FINANCE PROCESSOR Hospital Encounter [facility] [address] [place] [address] [address] [place] [address] Left hip pain Discharge Disposition: Discharge to home or self care 04/30/2024 2:30 PM EDUCATION FINANCE PROCESSOR Office Visit [facility] Orthopaedic Surgery [address] [place] [address] Medical Office Building [address] [place] [phone] Jerry Tolentino MD Left hip pain (Primary Dx); 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, initial encounter from Last 3 Months Allergies No known active allergies Medications allopurinoL [...] of femur 11/12/2008 Carpal tunnel syndrome 11/12/2008 Social History Tobacco Use Types Packs/Day Years Used Date Smoking Tobacco: Never Smokeless Tobacco: Never Tobacco Cessation:Counseling Given: Not Answered Sex and Gender Information Value Date Recorded Sex Assigned at Not on file Legal Sex Male 1:00 PM EDUCATION FINANCE PROCESSOR Gender Identity Not on file Sexual Orientation Not on file Last Filed Vital Signs Vital Sign Reading Time Taken Comments Blood Pressure - - Pulse - - Temperature - - Respiratory Rate - - Oxygen Saturation - - Inhaled Oxygen Concentration - - Weight 75.2 kg (165 lb 12.8 oz) 04/30/2024 1:42 PM EDUCATION FINANCE PROCESSOR Height 170.2 cm (5' 7 ) 04/30/2024 1:42 PM EDUCATION FINANCE PROCESSOR Body Mass Index 25.97 04/30/2024 1:42 PM EDUCATION FINANCE PROCESSOR Plan of Treatment Upcoming Encounters Date Type Department Care Team (Latest Contact Info) Description 08/07/2024 1:20 PM CDT Hospital Encounter [facility] Operating Room [address] [place] [address] Jerry Tolentino MD [address] [place] [address] 08/07/2024 1:20 PM CDT - 08/07/2024 4:00 PM CDT Surgery [facility] Operating Room [address] [place] [address] Jerry Tolentino MD [address] [place] [address] ARTHROPLASTY TOTAL HIP - LINDA ROBOTIC ARM - DERIAN Scheduled Procedures Name Priority Associated Diagnoses Date/Ti me ARTHROPLASTY TOTAL HIP - LINDA ROBOTIC ARM - DERIAN Right hip pain Primary osteoarthritis of right hip 08/07/2024 1:20 PM CDT Procedures Procedure Name Priority Date/Time Associated Diagnosis Comments XR SPINE LUMBAR 2 OR 3 VIEWS Schedule Routine, Read Routine (OP Routine) 04/30/2024 3:12 PM EDUCATION FINANCE PROCESSOR Left hip pain ERYTHROCYTE SEDIMENTATION RATE Routine 04/30/2024 12:38 PM EDUCATION FINANCE PROCESSOR Left hip pain CRP (ACUTE PHASE) Routine 04/30/2024 12: 38 PM EDUCATION FINANCE PROCESSOR Left hip pain XR HIP LEFT W PELVIS 2 OR 3 VIEWS Schedule Routine, Read Routine (OP Routine) 04/30/2024 12:19 PM EDUCATION FINANCE PROCESSOR Left hip pain from Last 3 Months Results * XR Spine Lumbar 2 or 3 Views (04/30/2024 3:12 PM EDUCATION FINANCE PROCESSOR) Anatomical Region Laterality Modality Spine N/A Computed Radiogr aphy 04/30/2024 4:23 PM EDUCATION FINANCE PROCESSOR Impressions 04/30/2024 5:12 PM EDUCATION FINANCE PROCESSOR Multilevel severe lumbar degenerative disc disease. Dictated by: Jennifer Patel MD The radiology attending physician has personally reviewed this study, and had reviewed and/or edited this written report and agrees with it. Electronically signed by: Agustin Banerjee D.O. Narrative 04/30/2024 5:12 PM EDUCATION FINANCE PROCESSOR EXAMINATION: XR SPINE LUMBAR 2 OR 3 [...] right proximal femur. Vascular calcifications. Procedure Note Lavonne Agustin Emelia, DO - 04/30/2024 EXAMINATION: XR SPINE LUMBAR [...] it. Electronically signed by: Agustin Banerjee D.O. us Jerry Tolentino MD IMG XR PROCEDURES Fi nal Result * (ABNORMAL) Erythrocyte sedimentation rate (04/30/2024 12:38 PM EDUCATION FINANCE PROCESSOR) Erythrocyte sedimentation rate 26(H) 1 - 20 mm/hr Blood 04/30/2024 12:3 8 PM EDUCATION FINANCE PROCESSOR 04/30/2024 12:52 PM EDUCATION FINANCE PROCESSOR Jerry Tolentino MD LAB BLOOD ORDERABLES Final Result Performing Organization Address [facility] Co de Phone Number JACQUIE [facility] [address] [facility] [place] [address] * CRP (acute phase) (04/30/2024 12:38 PM EDUCATION FINANCE PROCESSOR) CRP <3.0 <=10.0 mg/L Blood 04/30/2024 12:3 8 PM EDUCATION FINANCE PROCESSOR 04/30/2024 12:52 PM EDUCATION FINANCE PROCESSOR Jerry Tolentino MD LAB BLOOD ORDERABLES Final Result Performing Organization Address [facility] Phone Number [facility]QUIE [facility] [address] [facility] [place] [address] * XR Hip Left 2 or 3 Views W Pelvis (04/30/2024 12:19 PM EDUCATION FINANCE PROCESSOR) Anatomical Region Laterality Modality Lower Extremities, Hip, Pelvis Left C omputed Radiography 04/30/2024 12:3 1 PM EDUCATION FINANCE PROCESSOR Impressions 04/30/2024 12:31 PM EDUCATION FINANCE PROCESSOR 1. 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 2. 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 Electronically signed by: Miguelito Felton MD Narrative 04/30/2024 12:31 PM EDUCATION FINANCE PROCESSOR EXAMINATION: XR HIP LEFT 2 OR 3 [...] Insurance MEDICARE SOLUTIONS MEDICARE SOLUTIONS Care Teams Assembly Supervisor Relationship Specialty Start Date End Date Maria Del Carmen Rico MD [address] [place], [place] [phone] PCP - General Family Medicine 03/18/24
--- OUTSIDE RECORDS SUMMARY | 2024-06-27 08:38 | XMS_ITS | Clinical Summary ---
Author Organization [facility] Address [facility] [place] [address] Care Team Providers Care Tool Crib Lead Name Role Phone Dandy Hoff MD Unavailable Unavail able Shin Gudino MD Primary Care Provider [phone] Suzanna Gregorio MD Unavailable Allergies No known active allergies Medications ciprofloxacin 500 MG tablet Take 1 tablet by mouth 2 (two) times daily. 0 11/13/2016 Active traMADol 50 MG tablet Take 1 tablet by mouth every 4 (four) hours as needed. 0 11/13/2016 Active metroNIDAZOLE 250 mg tablet Take 1 tablet by mouth every 8 (eight) hours. 0 11/13/2016 Active aspirin EC 81 MG EC tablet Take 81 mg by mouth daily. Active furosemide 40 MG tablet Take 40 mg by mouth daily. Active lisinopril 10 MG tablet Take 10 mg by mouth daily. Active spironolactone 25 MG tablet Take 25 mg by mouth daily. Active atorvastatin 40 MG tablet Take 40 mg by mouth daily. Active Active Problems Problem Noted Date Diagnosed Date Aortic insufficiency Hypertension Hyperlipidemia Family History Medical History Relation Comments Open Heart Brother Stroke Brother Hypertension Father Diabetes Mother Stroke Paternal Grandfather Relation Status Comments Brother Father Mother Paternal Grandfather Social History Tobacco Use Types Packs/Day Years Used Date Smoking Tobacco: Never Smokeless Tobacco: Never Alcohol Use Standard Drinks/Week Comments No 0 (1 standard drink = 0.6 oz pur e alcohol) Sex and Gender Information Value Date Recorded Sex Assigned at Not on file Legal Sex Male 8:49 PM CDT Gender Identity Not on file Sexual Orientation Not on file Last Filed Vital Signs Vital Sign Reading Time Taken Comments Blood Pressure 132/70 11/21/2016 12:21 PM CDT Pulse 75 11/21/2016 12:20 PM CDT Temperature - - Respiratory Rate 16 11/21/2016 12:20 PM CDT Oxygen Saturation - - Inhaled Oxygen Concentration - - Weight 80.3 kg (177 lb) 11/21/2016 12:20 PM CDT Height 175.3 cm (5' 9 ) 11/21/2016 12:20 PM CDT Body Mass Index 26.14 11/21/2016 12:20 PM CDT Plan of Treatment Health Maintenance Due Date Last Done Comments Colorectal Cancer Screening Colonoscopy (10 Years) 1955 Hepatitis C 1972 DTaP, Tdap and Td Vaccines ( 1 - Tdap) 1973 Zoster Vaccines (1 of 2) 2004 Pneumococcal Vaccine: 65+ Ye ars (1 of 1 - PCV) 11/24/2019 COVID-19 Vaccine (1 - 2023-2 5 season) 2023 Influenza Adult (#1) 2024 RSV Immunization or 60+ Years (1 - 1-dose 75+ series) 2029 Meningococcal B Vaccine Aged Out No l onger eligible based on patient's age to complete this topic Meningococcal Vaccine Aged Out No tank jaime eligible based on patient's age to complete this topic RSV Immunizations Under 20 Months Aged Out No longer eligible based on patient's age to complete this topic Care Teams Tool Crib Lead Relationship Specialty Start Date End Date Shin Gudino MD [address] [place] [address] PCP - General FAMILY PRACTICE 11/18/16 Dandy Hoff MD CARDIOVASCULAR DISEASE 11/18/16 Suzanna Gregorio [place] [address] [place] [place] [address] SURGERY 11/18/16
--- NOTE | 2024-06-27 08:52 | EST_ITS ---
Patient Info Name: Amari Lorenzana Age: 68 years : 1955 Gender: Male Ht: 68 in Wt: 168 lbs BSA: 1.92 m2 HR: 59 bpm BP: 143 / 57 mmHg Exam Date: 06/27/2024 10:48 AM Exam Location: Echo Lab Patient Status: Outpatient Admit Date: 06/27/2024 Staff Ordering Physician: Jose Herrmann DO Attending Provider: Jose Herrmann DO Exercise Technologist: Kenzie Herrera RDCS Exercise Physician: Jose Herrmann DO Exam Type: CA stress krissy w NM Study Info A regadenoson stress test was performed. Summary 1. 1. Negative lexiscan stress test for ischemic ST changes by ECG criteria. 2. 2. Baseline hypertension. 3. 3. Nuclear scan to follow and will be reported separately. Please correlate with it. 4. 4. Patient informed of the above results. Protocol: Lexiscan Stress ECG Details Stage: REST Duration (min): 0 min : 51 sec HR (bpm): 59 SBP (mmHg): 143 DBP (mmHg): 57 Stage: REST Duration (min): 11 min : 38 sec HR (bpm): 62 SBP (mmHg): 143 DBP (mmHg): 57 Stage: STAGE 1 Duration (min): 0 min : 59 sec HR (bpm): 70 SBP (mmHg): 135 DBP (mmHg): 58 Stage: RECOVERY Duration (min): 1 min : 0 sec HR (bpm): 89 SBP (mmHg): 135 DBP (mmHg): 58 Stage: RECOVERY Duration (min): 2 min : 0 sec HR (bpm): 84 SBP (mmHg): 135 DBP (mmHg): 58 Stage: RECOVERY Duration (min): 3 min : 0 sec HR (bpm): 81 SBP (mmHg): 160 DBP (mmHg): 57 Stage: RECOVERY Duration (min): 3 min : 8 sec HR (bpm): 79 SBP (mmHg): 160 DBP (mmHg): 57 Rest HR: 62 bpm Peak HR: 89 bpm Rest Sys BP: 143 mmHg Peak Sys BP: 160 mmHg Max Pred HR: 151 bpm % Max Pred HR: 59 % Target HR: 128 bpm Max RPP: 14,240 bpm*mmHg Termination Reason: Completed protocol Cardiac Symptoms: None Total Time: 1 min : 0 sec Rest Hay BP: 57 mmHg Peak Hay BP: 57 mmHg Total Dose: 0.4 mg Resting ECG Sinus rhythm, RBBB. Stress ECG No ST changes. Arrhythmias None. Report Signatures
== END 2024-06-27 08:23 | disposition home or self-care (01) ==
LOC: ANHCARD 08:25
PROVIDERS: PCP Family Medicine; Visit Provider Internal Medicine Cardiovascular Disease
DX: R06.09 Other forms of dyspnea (principal); Z01.810 Encounter for preprocedural cardiovascular examination
CPT/HCPCS: 78452; 93017; 93306; A9502; J2785

== ENCOUNTER 2024-07-26 11:10 | Outpatient (CLI) | payer MEDICARE, SELFPAY ==
--- NOTE | ~2024-07-26 | XR_ITS ---
Right foot Technique: AP, oblique, and lateral views were obtained. Clinical History: Gout Findings: No acute fracture or dislocation is seen. Osseous alignment is anatomic. There is mild oste oarthritic change at the first MTP joint. Soft tissues are unremarkable. Impression: Mild osteoarthritic change at the first MTP joint. Reviewed, dictated and finalized at [facility]. Impression: Mild osteoarthritic change at the first MTP joint.
--- OUTSIDE RECORDS SUMMARY | 2024-07-26 11:38 | XMS_ITS | Encounter Summary ---
Author Organization [facility] Address [address] [place] [address] Phone Care Team Providers Care Auger Supervisor Name Role Phone Maria Del Carmen Rico MD Primary Care Provider Encounter Details Date Type Department Care Team (Late st Contact Info) Description 07/25/2024 Orders Only [facility] [address] [facility] Advanced [facility] 6th [place] [address] [place] [id number] Jerry Tolentino MD [address] [place] [address] Social History Tobacco Use Types Packs/Day Years Used Date Smoking Tobacco: Never Smokeless Tobacco: Never AUDIT-C Answer Date Recorded Q1: How often do you have a drink containing alcohol? Never 07/08/2024 Q2: How many drinks containi ng alcohol do you have on a typical day when you are drinking? Patient does not drink Q3: How often do you have si x or more drinks on one occasion? Never 07/08/2024 Personal Safety Answer Date Recorded Have you ever been in or are you currently in a harmful physical or emotional relationship or is someone making you feel afraid or unsafe? Patient unable to answer 07/08/2024 Sex and Gender Information Value Date Recorded Sex Assigned at Not on file Legal Sex Male 1:00 PM NURSE ESTHETICIAN Gender Identity Not on file Sexual Orientation Not on file documented as of this encounter Ordered Prescriptions Prescription Sig Dispense Quantity Refills Last Filled Start Date End Date mupirocin (BACTROBAN) 2 % ointment Apply topically 2 (two) times a day for 5 days APPLY TO NOSTRILS TWICE A DAY. STARTING 5 DAYS PRIOR TO SURGERY. 22 g 07/25/2024 documented in this encounter Plan of Treatment Upcoming Encounters Date Type Department Care Team (Late st Contact Info) Description 08/07/2024 9:00 AM CDT Hospital Encounter [facility] Operating Room [address] [place] [address] Jerry Tolentino MD [address] [place] [address] 08/07/2024 9:00 AM CDT Anesthesia Event [facility] Operating Room [address] [address] [address] Ciara Tolentino, ELY [address] [facility] [id number] [place] [address] 08/07/2024 9:00 AM CDT - 08/07/2024 11:40 AM CDT Surgery [facility] Operating Room [address] [address] [address] [address] Jerry Tolentino MD [address] [facility] [address] [place] [address] ARTHROPLASTY TOTAL HIP - LINDA ROBOTIC ARM - DERIAN Scheduled Procedures Name Priority Associated Diagnoses Date/Ti me ARTHROPLASTY TOTAL HIP - LINDA ROBOTIC ARM - DERIAN Right hip pain Primary osteoarthritis of left hip 08/07/2024 9:00 AM CDT documented as of this encounter Visit Diagnoses Not on filedocumented in this encounter Care Teams Auger Supervisor Relationship Specialty Start Date End Date Maria Del Carmen Rico MD [address] [place] [address] PCP - General Family Medicine 03/18/24 documented as of this encounter
--- OUTSIDE RECORDS SUMMARY | 2024-07-26 11:39 | XMS_ITS | Clinical Summary ---
Author Organization [facility] Address [facility] [place] [address] Care Team Providers Care Mechanical Meter Tester Name Role Phone Dandy Hoff MD Unavailable Unavail able Shin Gudino MD Primary Care Provider [phone] Suzanna Gregorio MD Unavailable [phone] Allergies No known active allergies Medications ciprofloxacin [...] Vaccine (1 - 2023-2 5 season) 2023 RSV Immunization or 60+ Years (1 - [...] age to complete this topic Care Teams Mechanical Meter Tester Relationship Specialty Start Date End Date Shin Gudino MD [address] [place] [address] PCP - General FAMILY PRACTICE 11/18/16 Dandy Hoff MD CARDIOVASCULAR DISEASE 11/18/16 Suzanna [place] [address] [place] [place] [address] SURGERY 11/18/16
--- OUTSIDE RECORDS SUMMARY | 2024-07-26 11:39 | XMS_ITS | Referral Summary ---
Author Organization [facility] Address [address] [place] [address] Care Team Providers Care Transportation Design Engineer Name Role Phone Maria Del Carmen Rico MD Primary Care Provider Encounters Date Type Department Care Team Description 07/25/2024 Orders Only [facility] Orthopaedic Surgery [address] [place] [address] 6th [place] [address] [place] [address] Jerry Tolentino MD 07/17/2024 Telephone [facility] Orthopaedic Surgery [address] [place] [address] 6th [place] [address] [place] [address] Ingrid Mims RN 07/08/2024 11:45 AM CDT Lab [facility] [address] [place] [address] Right hip pain; Primary osteoarthritis of right hip; Disorder of cartilage, unspecified 07/08/2024 11:30 AM CDT Pre-Admission Testing [facility] Pre-Anesthesia Testing [address] [place] [address] 07/08/2024 12:24 PM CDT - 07/08/2024 11:59 PM CDT Hospital Encounter [facility] Imaging [address] [place] [address] Left hip pain Discharge Disposition: Discharge to home or self care 06/14/2024 Orders Only [facility] Orthopaedic Surgery [address] [place] [address] 6th [place] [address] Jez Phillip MD Left hip pain (Primary Dx) 04/30/2024 2:58 PM PODIATRIC AIDE - 04/30/2024 11:59 PM PODIATRIC AIDE Hospital Encounter [facility] [address] [place] [phone] Left hip pain Discharge Disposition: Discharge to home or self care 04/30/2024 Orders Only [facility] Orthopaedic Surgery [address] [place] [address] Medical Office Building [address] [place] [phone] Jerry Tolentino MD Left hip pain (Primary Dx) 04/30/2024 12:25 PM PODIATRIC AIDE Lab 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, initial encounter from Last 3 Months Allergies No known active allergies Medications allopurinoL (ZYLOPRIM) 100 mg tabletIndicatio ns:prevention of acute gout attack Take 1 tablet (100 mg total) by mouth every morning 4 Active aspirin 81 mg enteric coated tabletIndicatio ns:Heart health Take 1 tablet (81 mg total) by mouth every morning Active atorvastatin (LIPITOR) 80 mg tabletIndicatio ns:hyperlipidem ia Take 1 tablet (80 mg total) by mouth every morning 4 Active clobetasoL (TEMOVATE) 0.05 % cream APPLY 1 (ONE) GRAM AT BEDTIME 4 Active furosemide (LASIX) 40 mg tabletIndicatio ns:Edema,hypert ension Take 1 tablet (40 mg total) by mouth every morning Active lisinopriL (PRINIVIL,ZESTR IL) 10 mg tablet Take 1 tablet (10 mg total) by mouth every morning Active meloxicam (MOBIC) 15 mg tablet Take 1 tablet (15 mg total) by mouth daily 4 Active metoprolol tartrate (LOPRESSOR) 75 mg tablet immediate release tabletIndicatio ns:hypertension Take 1 tablet (75 mg total) by mouth every morning 4 Active spironolactone (ALDACTONE) 25 mg tabletIndicatio ns:hypertension Take 1 tablet (25 mg total) by mouth every morning Active multivit-min/fe rrous fumarate (MULTI VITAMIN ORAL) Take 1 tablet by mouth every morning Active acetaminophen/d iphenhydramine (TYLENOL PM EXTRA STRENGTH ORAL) Take 2 tablets by mouth nightly Active mv-mn/C/glutami n/lysin/dxbz971 (AIRBORNE, ASCORBATE SODIUM, ORAL) Take 1 tablet by mouth every morning Active mupirocin (BACTROBAN) 2 % ointment Apply topically 2 (two) times a day for 5 days APPLY TO NOSTRILS TWICE A DAY. STARTING 5 DAYS PRIOR TO SURGERY. 22 g 5 07/31/19 25 Active Active Problems Problem Noted Date Diagnosed Date Right hip pain 06/14/2024 Primary osteoarthritis of right hip 06/14/2024 Primary osteoarthritis of left hip 06/14/2024 Aortic insufficiency 04/30/2024 Hyperlipidemia 04/30/2024 Hypertension 04/30/2024 Fracture of foot 11/12/2008 Fracture of pelvis 11/12/2008 Closed fracture of femur 11/12/2008 Carpal tunnel syndrome 11/12/2008 Social History Tobacco Use Types Packs/Day Years Used Date Smoking Tobacco: Never Smokeless Tobacco: Never Tobacco Cessation:Counseling Given: Not Answered AUDIT-C Answer Date Recorded Q1: How often [...] on file Legal Sex Male 1:00 PM PODIATRIC AIDE Gender Identity Not on file Sexual Orientation Not on file Last Filed Vital Signs Vital Sign Reading Time Taken Comments Blood Pressure 131/48 07/08/2024 11:15 AM CDT Pulse 54 07/08/2024 11:15 AM CDT Temperature - - Respiratory Rate - - Oxygen Saturation 97% 07/08/2024 11: 15 AM CDT Inhaled Oxygen Concentration - - Weight 77.9 kg (171 lb 12.8 oz) 025 11:15 AM CDT Height 172.7 cm (5' 8 ) 07/08/2024 11:1 5 AM CDT Body Mass Index 26.12 07/08/2024 11:15 AM CDT Plan of Treatment Upcoming Encounters Date Type Department Care Team (Late st Contact Info) Description 08/07/2024 9:00 AM CDT Hospital Encounter [facility] Operating Room [address] [place] [address] Jerry Tolentino MD [address] [place] [address] 08/07/2024 9:00 AM CDT Anesthesia Event [facility] Operating Room [address] [place] [address] Ciara Tolentino, TOW OPERATOR [address] [facility] [id number] [place] [address] 08/07/2024 9:00 AM CDT - 08/07/2024 11:40 AM CDT Surgery [facility] Operating Room [address] [place] [address] Jerry Tolentino MD [address] [place] [address] ARTHROPLASTY TOTAL HIP - LINDA ROBOTIC ARM - DERIAN Scheduled Procedures Name Priority Associated Diagnoses Date/Ti me ARTHROPLASTY TOTAL HIP - LINDA ROBOTIC ARM - DERIAN Right hip pain Primary osteoarthritis of left hip 08/07/2024 9:00 AM CDT Procedures Procedure Name Priority Date/Time Associated Diagnosis Comments CT HIP LEFT WO CONTRAST Schedule Routine, Read Routine (OP Routine) 07/08/2024 12:33 PM CDT Left hip pain EGFR Routine 07/08/2024 12:19 PM CDT Right hip pain Primary osteoarthritis of right hip DIFFERENTIAL AUTO Routine 07/08/2024 12:19 PM CDT Right hip pain Primary osteoarthritis of right hip CBC WITH AUTO DIFFERENTIAL Routine 07/08/2024 12:19 PM CDT Right hip pain Primary osteoarthritis of right hip VITAMIN D 25 HYDROXY Routine 07/08/2024 12:19 PM CDT Right hip pain Primary osteoarthritis of right hip Disorder of cartilage, unspecified COMPREHENSIVE METABOLIC PANEL Routine 07/08/2024 12:19 PM CDT Right hip pain Primary osteoarthritis of right hip XR SPINE LUMBAR 2 OR 3 VIEWS Schedule Routine, Read Routine (OP Routine) 04/30/2024 3:12 PM PODIATRIC AIDE Left hip pain ERYTHROCYTE SEDIMENTATION RATE Routine 04/30/2024 12:38 PM PODIATRIC AIDE Left hip pain CRP (ACUTE PHASE) Routine 04/30/2024 12:38 PM PODIATRIC AIDE Left hip pain XR HIP LEFT W PELVIS 2 OR 3 VIEWS Schedule Routine, Read Routine (OP Routine) 04/30/2024 12:19 PM PODIATRIC AIDE Left hip pain from Last 3 Months Results * CT Hip Left WO Contrast (07/08/2024 12:33 PM CDT) Anatomical Region Laterality Modality Lower Extremities Left Computed Tomog anayeli 07/08/2024 12:4 0 PM CDT Impressions 07/08/2024 12:40 PM CDT 1. Unchanged internally fixated pelvic ring and acetabular fractures with hardware failure at the pubic symphysis with severe posttraumatic left hip osteoarthritis. Electronically signed by: Miguelito Felton MD Narrative 07/08/2024 12:40 PM CDT EXAMINATION: CT HIP LEFT WO CONTRAST HISTORY: Hip pain. TECHNIQUE: Multidetector CT was performed through the left hip without contrast. Axial images also obtained through the bilateral knees. Comparison to 04/30/2024 FINDINGS: There is severe post traumatic left hip osteoarthritis. There are unchanged internally fixated fractures of the left posterior acetabulum and right proximal humeral shaft. There is also fixation of the bilateral sacroiliac joints and pubic symphysis. There is a fracture involving one of the symphyseal screws and adjacent plate, unchanged. The hardware is otherwise intact. Mild right hip osteoarthritis. Severe L5-S1 degenerative disc disease. Atrophy of the left rectus abdominis. Heterotopic ossification about the left hip is unchanged. No significant pelvic sidewall or inguinal adenopathy. Small fat filled umbilical hernia. Diverticulosis without CT evidence of acute diverticulitis. No acute fracture of the bilateral knees. No significant knee effusions. Atherosclerotic calcifications. Procedure Note Miguelito Felton MD - 07/08/2024 EXAMINATION: CT HIP LEFT WO CONTRAST HISTORY: Hip pain. TECHNIQUE: Multidetector CT was performed through the left hip without contrast. Axial images also obtained through the bilateral knees. Comparison to 04/30/2024 FINDINGS: There is severe post traumatic left hip osteoarthritis. There are unchanged internally fixated fractures of the left posterior acetabulum and right proximal humeral shaft. There is also fixation of the bilateral sacroiliac joints and pubic symphysis. There is a fracture involving one of the symphyseal screws and adjacent plate, unchanged. The hardware is otherwise intact. Mild right hip osteoarthritis. Severe L5-S1 degenerative disc disease. Atrophy of the left rectus abdominis. Heterotopic ossification about the left hip is unchanged. No significant pelvic sidewall or inguinal adenopathy. Small fat filled umbilical hernia. Diverticulosis without CT evidence of acute diverticulitis. No acute fracture of the bilateral knees. No significant knee effusions. Atherosclerotic calcifications. IMPRESSION: 1. Unchanged internally fixated pelvic ring and acetabular fractures with hardware failure at the pubic symphysis with severe posttraumatic left hip osteoarthritis. Electronically signed by: Miguelito Felton MD us Jez Phillip MD IMG CT PROCEDURES Final R esult * eGFR (07/08/2024 12:19 PM CDT) eGFR 85 >=60 mL/min/1. 73 m2 Comment: Interpretive Data Reference Interval Normal >/= 90 mL/min/1.73m2 Mildly decreased* 60 - 89 mL/min/1.73m2 Mildly to moderately decreased 45 - 59 mL/min/1.73m2 Moderately to severely decreased 30 - 44 mL/min/1.73m2 Severely decreased 15 - 29 mL/min/1.73m2 Kidney Failure < 15 mL/min/1.73m2 *Relative to young adult level Estimated glomerular filtration rate is determined by the 2020 CKD-EPI equation recommended by the National Kidney Foundation (A Unifying Approach to GFR Estimation: Recommendations of the NKF-ASK Task Force on Reassessing the Inclusion of Race in Diagnosing Kidney Disease, JASN 2020). The CKD-EPI equation should not be used for patients with unstable renal function and has not been validated in children and those over 70. Current interpretive data was last reviewed 2021. Blood 07/08/2024 12:1 9 PM CDT 07/08/2024 12:28 PM CDT us Jerry Tolentino MD LAB BLOOD ORDERABLES Final Result [facility] [address] [facility]. Department [place] [address] * (ABNORMAL) Differential, auto (07/08/2024 12:19 PM CDT) Neutrophil abs 7.3(H) 1.5 - 6.5 K/cumm Imm gran abs 0.0 0.0 - 0.1 K/cumm [facility] Lymphocyte abs 2.0 0.8 - 3.3 K/cumm [facility] Monocyte abs 1.0(H) 0.2 - 0.8 K/cumm [facility] Eosinophil abs 0.3 0.0 - 0.5 K/cumm [facility] Basophil abs 0.1 0.0 - 0.1 K/cumm [facility] Neutrophil pct 68.4 % [facility] Comment: Interpretive Data Percent cell count reference ranges are not reported, since discordance with absolute values may lead to misinterpretation of CBC data. Current Interpretive Data was last revised on 2017. Imm gran pct 0.3 % [facility] Comment: Interpretive Data Percent cell count reference ranges are not reported, since discordance with absolute values may lead to misinterpretation of CBC data. Current Interpretive Data was last revised on 2017. Lymphocyte pct 18.6 % [facility] Comment: Interpretive Data Percent cell count reference ranges are not reported, since discordance with absolute values may lead to misinterpretation of CBC data. Current Interpretive Data was last revised on 2017. Monocyte pct 9.1 % [facility] Comment: Interpretive Data Percent cell count reference ranges are not reported, since discordance with absolute values may lead to misinterpretation of CBC data. Current Interpretive Data was last revised on 2017. Eosinophil pct 3.1 % [facility] Comment: Interpretive Data Percent cell count reference ranges are not reported, since discordance with absolute values may lead to misinterpretation of CBC data. Current Interpretive Data was last revised on 2017. Basophil pct 0.5 % [facility] Comment: Interpretive Data Percent cell count reference ranges are not reported, since discordance with absolute values may lead to misinterpretation of CBC data. Current Interpretive Data was last revised on 2017. Blood 07/08/2024 12:1 9 PM CDT 07/08/2024 12:28 PM CDT us Jerry Tolentino MD LAB BLOOD ORDERABLES Final Result [facility] [address] [facility]. [place] [address] * (ABNORMAL) CBC with auto differential (07/08/2024 12:19 PM CDT) [facility] WBC 10.7(H) 3.8 - 9.9 K/cumm Hgb 13.7 13.0 - 17.5 g/dL [facility] Hct 41.2 38.9 - 50.3 % [facility] Plt 303 150 - 400 K/cumm [facility] MPV 10.7 9.1 - 12.3 fL [facility] RBC 4.62 4.30 - 5.80 M/cumm [facility] MCV 89.2 81.3 - 96.4 fL [facility] MCH 29.7 27.1 - 33.3 pg [facility] MCHC 33.3 32.3 - 35.7 g/dL [facility] RDW CV 14.6 11.1 - 14.9 % [facility] RDW SD 47.1 35.7 - 48.1 fL [facility] NRBC abs 0.00 0.00 - 0.01 K/cumm [facility] Blood 07/08/2024 12:1 9 PM CDT 07/08/2024 12:28 PM CDT Jerry Tolentino MD LAB BLOOD ORDERABLES Final Result Performing Organization Address [facility] de Phone Number [facility] [address] [facility] [place] [address] * Vitamin D 25 hydroxy (07/08/2024 12:19 PM CDT) [facility] Vitamin D 25-OH 30 30 - 80 ng/mL Blood 07/08/2024 12:1 9 PM CDT 07/08/2024 12:28 PM CDT Jerry Tolentino MD LAB BLOOD ORDERABLES Final Result Performing Organization Address [facility] de Phone Number [facility] [address] [facility] [place] [address] * Comprehensive metabolic panel (07/08/2024 12:19 PM CDT) Sodium 138 135 - 145 mmol/L Potassium, pl 4.3 3.3 - 4.9 mmol/L [facility] Chloride 103 97 - 110 mmol/L [facility] CO2 25 22 - 32 mmol/L [facility] Anion gap 10 2 - 15 mmol/L [facility] BUN 16 6 - 25 mg/dL [facility] Creatinine 0.97 0.80 - 1.30 mg/dL [facility] Glucose 70 70 - 199 mg/dL [facility] Comment: Interpretive Data Fasting glucose >/= 126 mg/dl is diagnostic for diabetes. Fasting is defined as no caloric intake for at least 8 hours. Fasting glucose between 100 mg/dl to 125 mg/dl is diagnostic of prediabetes. In a patient with classic symptoms of hyperglycemia or hyperglycemic crisis, a random glucose >/= 200 mg/dl is diagnostic for diabetes. In the absence of unequivocal hyperglycemia, results should be confirmed by repeat testing. The classification and Diagnosis of Diabetes Diabetes Care 2021; 46: S19-S40. Current interpretive data was last revised 2022. Calcium 9.6 8.5 - 10.3 mg/dL [facility] Bilirubin, total 0.7 0.1 - 1.2 mg/dL [facility] Protein, pl 7.8 6.5 - 8.5 g/dL [facility] Albumin 4.3 3.5 - 5.0 g/dL [facility] Alk phos 117 40 - 130 Units/L [facility] ALT 22 7 - 55 Units/L [facility] AST 21 10 - 50 Units/L [facility] Blood 07/08/2024 12:1 9 PM CDT 07/08/2024 12:28 PM CDT Jerry Tolentino MD LAB BLOOD ORDERABLES Final Result [facility] [address] [facility]. Department [place] [address] * XR Spine Lumbar 2 or 3 Views (04/30/2024 3:12 PM PODIATRIC AIDE) Anatomical Region Laterality Modality Spine N/A Computed Radiogr aphy 04/30/2024 4:23 PM PODIATRIC AIDE Impressions 04/30/2024 5:12 PM PODIATRIC AIDE Multilevel severe lumbar degenerative disc disease. Dictated by: Jennifer Patel MD The radiology attending physician has personally reviewed this study, and had reviewed and/or edited this written report and agrees with it. Electronically signed by: Agustin Banerjee D.O. Narrative 04/30/2024 5:12 PM PODIATRIC AIDE EXAMINATION: XR SPINE LUMBAR 2 OR 3 [...] (ABNORMAL) Erythrocyte sedimentation rate (04/30/2024 12:38 PM PODIATRIC AIDE) Erythrocyte sedimentation rate 26(H) 1 - 20 mm/hr Blood 04/30/2024 12:3 8 PM PODIATRIC AIDE 04/30/2024 12:52 PM PODIATRIC AIDE Jerry Tolentino MD LAB BLOOD ORDERABLES Final Result Performing Organization Address [facility] Co de Phone Number [facility] [address] [facility] [place] [address] * CRP (acute phase) (04/30/2024 12:38 PM PODIATRIC AIDE) CRP <3.0 <=10.0 mg/L Blood 04/30/2024 12:3 8 PM PODIATRIC AIDE 04/30/2024 12:52 PM PODIATRIC AIDE Jerry Tolentino MD LAB BLOOD ORDERABLES Final Result Performing Organization Address [facility] Phone Number [facility] [address] [facility] [place] [address] * XR Hip Left 2 or 3 Views W Pelvis (04/30/2024 12:19 PM PODIATRIC AIDE) Anatomical Region Laterality Modality Lower Extremities, Hip, Pelvis Left C omputed Radiography 04/30/2024 12:3 1 PM PODIATRIC AIDE Impressions 04/30/2024 12:31 PM PODIATRIC AIDE 1. 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 2. 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 Electronically signed by: Miguelito Felton MD Narrative 04/30/2024 12:31 PM PODIATRIC AIDE EXAMINATION: XR HIP LEFT 2 OR 3 [...] nal Result from Last 3 Months Insurance [facility] MED[facility] ADV[facility]AGE [facility] Care Teams Transportation Design Engineer Relationship Specialty Start Date End Date Maria Del Carmen Rico MD [address] [place], [place] [id number] PCP - General Family Medicine 03/18/24
--- OUTSIDE RECORDS SUMMARY | 2024-07-26 11:39 | XMS_ITS | Clinical Summary ---
Author Organization [facility] Address [address] [facility] [place] [address] Care Team Providers Care Medical Technologist Microbiology Name Role Phone Maria Del Carmen Rico [...] 2 tablets by mouth nightly Active mv-mn/C/glutami n/lysin/lbke912 (AIRBORNE, ASCORBATE SODIUM, ORAL) Take 1 tablet by mouth every morning Active mupirocin (BACTROBAN) 2 % ointment Apply topically 2 (two) times a day for 5 days APPLY TO NOSTRILS TWICE A DAY. STARTING 5 DAYS PRIOR TO SURGERY. 22 g 07/31/19 25 Active Active Problems Problem Noted Date Diagnosed Date Right hip pain 06/14/2024 Primary osteoarthritis of right hip 06/14/2024 Primary osteoarthritis of left hip 06/14/2024 Aortic insufficiency 04/30/2024 Hyperlipidemia 04/30/2024 Hypertension 04/30/2024 Fracture of foot 11/12/2008 Fracture of pelvis 11/12/2008 Closed fracture of femur 11/12/2008 Carpal tunnel syndrome 11/12/2008 Encounters Date Type Department Care Team Description 07/25/2024 Orders Only [facility] Orthopaedic Surgery [address] [facility] [address] [place] [address] [place] [address] Jerry Tolentino MD 07/17/2024 Telephone [facility] Orthopaedic Surgery [address] [facility] [address] [place] [address] [place] [address] Ingrid Mims RN 07/08/2024 12:24 PM CDT - 07/08/2024 11:59 PM CDT Hospital Encounter [facility] [address] MARY [place]oh [address] Left hip pain Discharge Disposition: Discharge to home or self care 07/08/2024 11:45 AM CDT Lab [facility] [address] MARY [address]alloh [address] Right hip pain; Primary osteoarthritis of right hip; Disorder of cartilage, unspecified 07/08/2024 11:30 AM CDT Pre-Admission Testing [facility] Pre-Anesthesia Testing [address] MARY [address] [address] 06/14/2024 Orders Only [facility] Orthopaedic Surgery [address] [facility] 6th [place] [address] [place] [address] Jez Phillip MD Left hip pain (Primary Dx) 04/30/2024 2:58 PM DIRECTOR OF REIMBURSEMENT - 04/30/2024 11:59 PM DIRECTOR OF REIMBURSEMENT Hospital Encounter [facility] [address] [place] [address] [address] [place] [phone] Left hip pain Discharge Disposition: Discharge to home or self care 04/30/2024 2:30 PM DIRECTOR OF REIMBURSEMENT Office Visit [facility] Orthopaedic Surgery [address] [place] [address] Office [address] [place] [phone] Jerry Tolentino MD Left hip pain (Primary Dx); 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, initial encounter 04/30/2024 12:25 PM DIRECTOR OF REIMBURSEMENT Lab [facility] [address] [place] [address] Left hip pain 04/30/2024 12:01 PM DIRECTOR OF REIMBURSEMENT - 04/30/2024 11:59 PM DIRECTOR OF REIMBURSEMENT Hospital Encounter [facility] [address] [place] [address] [address] [place] [phone] Left hip pain Discharge Disposition: Discharge to home or self care 04/30/2024 Orders Only [facility] Orthopaedic Surgery [address] [place] [address] Medical Office Building [address] [place] [phone] Jerry Tolentino MD Left hip pain (Primary Dx) from Last 3 Months Surgical History Surgery Date Site/Laterality Comments MULTIPLE TOOTH EXTRACTIONS ORIF PUBIC SYMPHYSIS 04/24/2008 - 04/23/2009 ORIF ACETABULUM FRACTURE 04/24/2008 - 04/23/2009 Left Family History Medical History Relation Name Comments Anesthesia problems Neg Hx Social History Tobacco Use Types Packs/Day Years [...] on file Legal Sex Male 1:00 PM DIRECTOR OF REIMBURSEMENT Gender Identity Not on file Sexual Orientation [...] Description 08/07/2024 9:00 AM CDT Hospital Encounter [facility] Operating Room [address] [address] Jerry Tolentino MD [address] [place] [address] 08/07/2024 9:00 AM CDT Anesthesia Event [facility] Operating Room [address] [place] [address] Ciara Tolentino, ELY [address] [facility] [id number] [place] [address] 08/07/2024 9:00 AM CDT - 08/07/2024 11:40 AM CDT Surgery [facility] Operating Room [address] [place] OTERONATHAN MARY [place] [id number] Jerry Tolentino MD [address] [place] [address] ARTHROPLASTY TOTAL HIP - LINDA ROBOTIC ARM - DERIAN Scheduled Procedures Name Priority Associated Diagnoses Date/Ti me ARTHROPLASTY TOTAL HIP - LINDA ROBOTIC ARM - DERIAN Right hip pain Primary osteoarthritis of left hip 08/07/2024 9:00 AM CDT Health Maintenance Due Date Last Done Comments Colon Cancer Screening-Colonoscopy 1954 Depression Screening 1954 Hepatitis C Screening 1954 Prostate Cancer Screening-PSA 1954 DTaP/Tdap/Td Vaccine (1 - Tdap) 1965 Hepatitis B Screening 1972 Pneumococcal vaccine 65+ (1 of 1 - PCV) 2004 Zoster Vaccine (1 of 2) 2004 Well Visit 65+ 11/24/2019 Influenza Vaccine (Season Ended) 2024 Fall Risk Assessment 07/08/2025 07/08/2024 Procedures Procedure Name Priority Date/Time Associated Diagnosis [...] Read Routine (OP Routine) 04/30/2024 3:12 PM DIRECTOR OF REIMBURSEMENT Left hip pain ERYTHROCYTE SEDIMENTATION RATE Routine 04/30/2024 12:38 PM DIRECTOR OF REIMBURSEMENT Left hip pain CRP (ACUTE PHASE) Routine 04/30/2024 12:38 PM DIRECTOR OF REIMBURSEMENT Left hip pain XR HIP LEFT W PELVIS 2 OR 3 VIEWS Schedule Routine, Read Routine (OP Routine) 04/30/2024 12:19 PM DIRECTOR OF REIMBURSEMENT Left hip pain from Last 3 Months Results * CT Hip Left WO Contrast (07/08/2024 12:33 PM CDT) Anatomical Region Laterality Modality Lower Extremities Left Computed Tomog anayeli 07/08/2024 12:4 0 PM CDT Impressions 07/08/2024 12:40 PM CDT 1. Unchanged internally fixated pelvic ring and acetabular fractures with hardware failure at the pubic symphysis with severe posttraumatic left hip osteoarthritis. Electronically signed by: MD Kinjal Varma 07/08/2024 12:40 PM CDT EXAMINATION: CT HIP [...] osteoarthritis. Electronically signed by: Miguelito Felton MD Jez Phillip MD IM CT PROCEDURES Final R esult * eGFR [...] LAB BLOOD ORDERABLES Final Result JACQUIE ALVAREZ [address] [facility]. [place] [address] * (ABNORMAL) Differential, auto (07/08/2024 12:19 PM CDT) Neutrophil abs 7.3(H) 1.5 - 6.5 K/cumm Imm gran abs 0.0 0.0 - 0.1 K/cumm [facility] Lymphocyte abs 2.0 0.8 - 3.3 K/cumm [facility] Monocyte abs 1.0(H) 0.2 - 0.8 K/cumm [facility] Eosinophil abs 0.3 0.0 - 0.5 K/cumm [facility] Basophil abs 0.1 0.0 - 0.1 K/cumm [facility] Neutrophil pct 68.4 % JACQUIE ALVAREZ Comment: Interpretive Data Percent cell count reference ranges are not reported, since discordance with absolute values may lead to misinterpretation of CBC data. Current Interpretive Data was last revised on 2017. Imm gran pct 0.3 % [facility] Comment: Interpretive Data Percent cell count reference ranges are not reported, since discordance with absolute values may lead to misinterpretation of CBC data. Current Interpretive Data was last revised on 2017. Lymphocyte pct 18.6 % JACQUIE ALVAREZ Comment: Interpretive Data Percent cell count reference ranges are not reported, since discordance with absolute values may lead to misinterpretation of CBC data. Current Interpretive Data was last revised on 2017. Monocyte pct 9.1 % JACQUIE ALVAREZ Comment: Interpretive Data Percent cell count reference ranges are not reported, since discordance with absolute values may lead to misinterpretation of CBC data. Current Interpretive Data was last revised on 2017. Eosinophil pct 3.1 % [facility] Comment: Interpretive Data Percent cell count reference ranges are not reported, since discordance with absolute values may lead to misinterpretation of CBC data. Current Interpretive Data was last revised on 2017. Basophil pct 0.5 % [facility] Comment: Interpretive Data Percent cell count reference ranges are not reported, since discordance with absolute values may lead to misinterpretation of CBC data. Current Interpretive Data was last revised on 2017. Blood 07/08/2024 12:1 9 PM CDT 07/08/2024 12:28 PM CDT Jerry Tolentino MD LAB BLOOD ORDERABLES Final Result JACQUIE LANIER [address] [facility] [place] [address] * (ABNORMAL) CBC with auto differential (07/08/2024 12:19 PM CDT) WBC 10.7(H) 3.8 - 9.9 K/cumm Hgb 13.7 13.0 - 17.5 g/dL [facility] Hct 41.2 38.9 - 50.3 % [facility] Plt 303 150 - 400 K/cumm [facility] MPV 10.7 9.1 - 12.3 fL [facility] RBC 4.62 4.30 - 5.80 M/cumm [facility] MCV 89.2 81.3 - 96.4 fL [facility] MCH 29.7 27.1 - 33.3 pg [facility] MCHC 33.3 32.3 - 35.7 g/dL [facility] RDW CV 14.6 11.1 - 14.9 % [facility] RDW SD 47.1 35.7 - 48.1 fL [facility] NRBC abs 0.00 0.00 - 0.01 K/cumm [facility] Blood 07/08/2024 12:1 9 PM CDT 07/08/2024 12:28 PM CDT Jerry Tolentino MD LAB BLOOD ORDERABLES Final Result JACQUIE ALVAREZ [address] [employer]. [place] [address] * Vitamin D 25 hydroxy (07/08/2024 12:19 PM CDT) Pathologist [facility] Vitamin D 25-OH 30 30 - 80 ng/mL Blood 07/08/2024 12:1 9 PM CDT 07/08/2024 12:28 PM CDT Jerry Tolentino MD LAB BLOOD ORDERABLES Final Result [facility] [address] Department [place] [address] * Comprehensive metabolic panel (07/08/2024 12:19 PM CDT) [facility] Sodium 138 135 - 145 mmol/L Potassium, pl 4.3 3.3 - 4.9 mmol/L [facility] Chloride 103 97 - 110 mmol/L [facility] CO2 25 22 - 32 mmol/L [facility] Anion gap 10 2 - 15 mmol/L [facility] BUN 16 6 - 25 mg/dL [facility] Creatinine 0.97 0.80 - 1.30 mg/dL [facility] [...] classification and Diagnosis of Diabetes Diabetes Care 202; 46: S19-S40. Current interpretive data was last [...] MD LAB BLOOD ORDERABLES Final Result JACQUIE LANIERCH [address] [facility]. [place] [address] * XR Spine Lumbar 2 or 3 Views (04/30/2024 3:12 PM DIRECTOR OF REIMBURSEMENT) Anatomical Region Laterality Modality Spine N/A Computed Radiogr aphy 04/30/2024 4:23 PM DIRECTOR OF REIMBURSEMENT Impressions 04/30/2024 5:12 PM DIRECTOR OF REIMBURSEMENT Multilevel severe lumbar degenerative disc disease. Dictated by: Jennifer Patel MD The radiology attending physician has personally reviewed this study, and had reviewed and/or edited this written report and agrees with it. Electronically signed by: Agustin Banerjee D.O. Narrative 04/30/2024 5:12 PM DIRECTOR OF REIMBURSEMENT EXAMINATION: XR SPINE LUMBAR 2 OR 3 [...] femur. Vascular calcifications. Procedure Note Agustin Banerjee, - 04/30/2024 EXAMINATION: XR SPINE LUMBAR 2 [...] (ABNORMAL) Erythrocyte sedimentation rate (04/30/2024 12:38 PM DIRECTOR OF REIMBURSEMENT) Pathologist [facility] Erythrocyte sedimentation rate 26(H) 1 - 20 mm/hr Blood 04/30/2024 12:3 8 PM DIRECTOR OF REIMBURSEMENT 04/30/2024 12:52 PM DIRECTOR OF REIMBURSEMENT Jerry Tolentino MD LAB BLOOD ORDERABLES Final Result Performing Organization Address [facility] de Phone Number [facility] [address] [employer] [address] * CRP (acute phase) (04/30/2024 12:38 PM DIRECTOR OF REIMBURSEMENT) Pathologist [facility] CRP <3.0 <=10.0 mg/L Blood 04/30/2024 12:3 8 PM DIRECTOR OF REIMBURSEMENT 04/30/2024 12:52 PM DIRECTOR OF REIMBURSEMENT Jerry Tolentino MD LAB BLOOD ORDERABLES Final Result Performing Organization Address [facility] de Phone Number [facility] [address] [employer] [address] * XR Hip Left 2 or 3 Views W Pelvis (04/30/2024 12:19 PM DIRECTOR OF REIMBURSEMENT) Anatomical Region Laterality Modality Lower Extremities, Hip, Pelvis Left C omputed Radiography 04/30/2024 12:3 1 PM DIRECTOR OF REIMBURSEMENT Impressions 04/30/2024 12:31 PM DIRECTOR OF REIMBURSEMENT 1. 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 2. 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 Electronically signed by: Miguelito Felton MD Narrative 04/30/2024 12:31 PM DIRECTOR OF REIMBURSEMENT EXAMINATION: XR HIP LEFT 2 OR 3 [...] nal Result from Last 3 Months Insurance UHC MEDICARE ADVANTAGE [facility] MED[facility] Address: [address] [address] [place] [address] [facility] MEDICARE [employer]ANTAGE [facility] MED[facility] Address: [address] [address] [place] [address] Care Teams Medical Technologist Microbiology Relationship Specialty Start Date End Date Maria Del Carmen Rico MD [address] [place] [id number] PCP - General Family Medicine 03/18/24
== END 2024-07-26 11:11 | disposition home or self-care (01) ==
LOC: CHSIMG 11:12
PROVIDERS: PCP Family Medicine; Visit Provider Family Medicine
DX: M10.9 Gout, unspecified (principal); M19.071 Primary osteoarthritis, right ankle and foot
CPT/HCPCS: 73630

== ENCOUNTER 2024-08-13 14:07 | Emergency (ER) | payer MEDICARE, SELFPAY ==
[2024-08-13 14:07] VITALS: BP 124/51; PULSE 66; RESP 17; TEMP 36.4; O2SAT 96
[2024-08-13 14:30] VITALS: BP 115/58; PULSE 66; RESP 13; O2SAT 93
--- NOTE | 2024-08-13 14:48 | ECG_ITS ---
Test Date: 2024-08-13 15:18:11 Measurements Intervals [place] Rate: 63 P: -2 WA: 224 QRS: -25 QRSD: 129 T: -13 QT: 416 QTc: 426 Interpretive Statements SINUS RHYTHM WITH FIRST DEGREE AV BLOCK LEFT VENTRICULAR HYPERTROPHY MINIMAL Q WAVES- HIGH LATERAL LEADS CANNOT R/O SEPTAL INFARCT, AGE INDETERMINATE BORDERLINE ST-T WAVE ABNORMALITY- INFERIOR LEADS ABNORMAL ECG No previous ECG available for comparison Electronically Signed On 08-13-2024 15:55:40 CDT by Jose Herrmann D.O.
--- NOTE | 2024-08-13 14:48 | ED_ITS ---
HPI - General Adult General Chief complaint: Nausea/Vomiting/Diarrhea Stated complaint: nausea Time Seen by Provider: 08/13/24 14:23 History of Present Illness HPI narrative: deena is a 68M with a PMH of gout, HLD, CHF, BPH and OA s/p SANDY last week. He presented to the ED with lightheadedness and nausea since last night. No CP, dyspnea, vomiting, diarrhea, melena or hematochezia. He has not passed out. It is worse after he takes his oxycodone. He had a soft BM today. Related Data Home Medications ?Medication ?Instructions ?Recorded ?Confirmed ?Last Taken ?Type allopurinol 100 mg tablet 100 mg PO DAILY 06/04/24 06/04/24 Unknown History clobetasol 0.05 % topical cream topical 06/04/24 06/04/24 Unknown History meloxicam 15 mg tablet 15 mg PO DAILY 06/04/24 06/04/24 Unknown History metoprolol succinate 25 mg 75 mg PO DAILY 06/04/24 06/04/24 Unknown History tablet,extended release 24 hr metoprolol tartrate 75 mg tablet 75 mg PO DAILY 06/04/24 06/04/24 Unknown History multivitamin 1 tablet PO DAILY 06/04/24 06/04/24 Unknown History mv-min-vit C 1,000 mg-elderberry ea PO 06/04/24 06/04/24 Unknown History 50 mg-herb 35.5mg effervescent tablet (Airborne Elderberry) red yeast rice 600 mg capsule 600 mg PO DAILY 06/04/24 06/04/24 Unknown History Allergies Allergy/AdvReac Type Severity Reaction Status Date / Time No Known Allergies Allergy Verified 08/13/24 14:15 Review of Systems 2 Review of Systems: All systems reviewed & are unremarkable except as noted in HPI and below PMFSH Past Medical History Medical History (Updated 08/13/24 @ 15:51 by Carlos Thomas DO) Vitamin D deficiency Hypertension Hyperlipidemia Genital warts Erectile dysfunction CHF (congestive heart failure) Aortic valve insufficiency Surgical History Surgical History History of meniscectomy of left knee Repair 2002 Family History Family History Mother Family history of type 2 diabetes mellitus Father Hypertension Brother Family history of coronary artery disease Mother Diabetes mellitus Father Hypertension Social History Social History Smoking status: Never smoker Alcohol intake: current Drinks per week: 2 Substance use: never Substance use type: does not use Living arrangements: with family Occupation/Education: occupation 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 Exam 2 Const: General: cooperative, healthy appearing, comfortable, no acute distress, well developed, alert, awake and Physically active O rientation/consciousness: oriented to person, oriented to place and oriented to time HENMT: Head: normal to inspection, normocephalic and atraumatic Ears: h earing grossly normal bilaterally and external ears normal Face/Nose/Sinus: N ormal external nose present Eyes: General: appearance normal, both eyes and all related structures P eriorbital: periorbital findings normal Sclera: sclerae normal Pupils: E qual, round and reactive pupils present Neck: Neck: normal visual inspection Chest: Chest palpation & inspection: normal inspection of the chest Resp: Effort & Inspection: normal respiratory effort, able to speak in complete sentences and no respiratory distress Auscultation: clear to auscultation bilaterally Cardio: Jugular venous distension: no JVD Rate: regular rate Rhythm: r egular rhythm GI: Inspection: normal to inspection GI Palp: Yes Soft to palpation A uscultation: normal bowel sounds Skin: General skin exam: normal color and no rashes or lesions noted Neuro: General: oriented to person, oriented to place and oriented to time Cranial nerves: Yes Equal, round and reactive pupils present Extrem: General: normal to inspection Course Course Emergency Course: Ordered labs, EKG, fluids and zofran. EKG showed NSR with a rate of 63, No ectopy, no ST elevation/depression Labs showed and elevated WBC, which is likely from recent surgery as he has no urinary symptoms, wounds, or or respiratory symptoms. He was mildly anemic as well. Given that symptoms are worse after his meds this is the most likely cause of his symptoms with the anemia contributing. Medical Decision Making Lab Data 08/13/24 14:57 08/13/24 14:57 Labs: Lab Results 08/13/24 Range/Units 14:57 WBC 15.6 H (4.8-10.8) K/mm3 RBC 3.38 L (4.70-6.10) M/mm3 Hgb 9.9 L (12.4-15.3) g/dL Hct 30.8 L (37.0-46.0) % MCV 91.1 (78.0-102.0) fL MCH 29.3 (27.0-31.0) pg MCHC 32.1 (32-36) g/dL RDW 14.9 H (11.6-14.4) % Plt Count 343 (150-420) K/mm3 MPV 9.4 (8.7-11.0) fl Immature Gran % (Auto) 0.7 H (0.0-0.0) % Neut % (Auto) 86.0 H (50.0-70.0) % Lymph % (Auto) 6.9 L (18.0-42.0) % [place] % (Auto) 5.8 (2.0-11.0) % Eos % (Auto) 0.4 L (1.0-6.0) % Baso % (Auto) 0.2 (0.0-1.0) % Lymph # (Auto) 1.08 L (1.10-4.50) K/mm3 [place] # (Auto) 0.90 (0.10-0.90) K/mm3 Eos # (Auto) 0.07 (0.02-0.50) K/mm3 Baso # (Auto) 0.03 (0.00-0.10) K/mm3 Abs Immat Gran (auto) 0.11 H (0.00-0.00) K/mm3 Absolute Neuts (auto) 13.42 H (1.70-7.20) K/mm3 Absolute Nucleated RBC 0.00 (0.00-0.00) K/mm3 Nucleated RBC % 0.0 (0-0.0) % Sodium 134 L (136-145) mmol/L Potassium 4.7 (3.5-5.1) mmol/L Chloride 96 L (98-108) mmol/L Carbon Dioxide 32 (21-32) mmol/L Anion Gap 6 (4-12) mmol/L BUN 20 H (7-18) mg/dL Creatinine 1.20 (0.70-1.30) mg/dL Estim Creat Clear Calc Not Reportable Estimated GFR 60 (59 - ) Glucose 106 H (70-99) mg/dL Calculated Osmolality 280 L (285-295) mOsm/kg Calcium 9.1 (8.5-10.1) mg/dL Total Bilirubin 1.7 H (0.00-1.00) mg/dL AST 27 (15-37) U/L ALT 32 (16-63) U/L Alkaline Phosphatase 115 (46-116) U/L C-Reactive Protein 0.7 (0.0-0.9) mg/dL Total Protein 7.4 (6.4-8.2) g/dL Albumin 3.2 L (3.4-5.0) g/dL Lipase 22 (16-77) U/L Discharge Plan Discharge Clinical Impression: Adverse effect of narcotic, Anemia Patient Disposition: Home Condition: Stable Patient Language: Slovenian Prescriptions: New ondansetron 4 mg tablet,disintegrating 4 mg PO Q8H Qty: 20 0RF No Action metoprolol succinate 25 mg tablet extended release 24 hr 75 mg PO DAILY metoprolol tartrate 75 mg tablet 75 mg PO DAILY multivitamin Tablet 1 tablet PO DAILY meloxicam 15 mg tablet 15 mg PO DAILY clobetasol 0.05 % cream topical allopurinol 100 mg tablet 100 mg PO DAILY red yeast rice 600 mg capsule 600 mg PO DAILY Rx Instructions: give with meal/snack Airborne Elderberry 1,000 mg-50 mg-35.5 mg tablet, effervescent PO aspirin 81 mg tablet,delayed release (DR/EC) 81 mg PO EVERY OTHER DAY Qty: 30 5RF lisinopril 10 mg tablet 10 mg PO DAILY Qty: 30 5RF spironolactone 25 mg tablet 25 mg PO DAILY Qty: 30 5RF atorvastatin 40 mg tablet 40 mg PO DAILY Qty: 30 5RF furosemide 40 mg tablet See Rx Instructions .ROUTE .COMPLEX Qty: 30 0RF Dose Instruction: TAKE ONE TABLET BY MOUTH DAILY Rx Instructions: TAKE ONE TABLET BY MOUTH DAILY Follow-up/Referrals: Trisha,Maria Del Carmen Taylor MD [Primary Care Provider] -
[2024-08-13 15:00] VITALS: BP 123/63; PULSE 66; RESP 13; O2SAT 94
[2024-08-13 15:01] LABS: Basophils Absolute Auto 0.03 K/mm3 (0.00-0.10); Basophils Percent Auto 0.2 % (0.0-1.0); Eosinophils Absolute Auto 0.07 K/mm3 (0.02-0.50); Eosinophils Percent Auto 0.4 % (1.0-6.0); Hematocrit 30.8 % (37.0-46.0); Hemoglobin 9.9 g/dL (12.4-15.3); Immature Granulocyte Absolute 0.11 K/mm3 (0.00-0.00); Immature Granulocyte Percent A 0.7 % (0.0-0.0); Lymphocytes Absolute Auto 1.08 K/mm3 (1.10-4.50); Lymphocytes Percent Auto 6.9 % (18.0-42.0); Mean Corpuscular HGB Conc 32.1 g/dL (32-36); Mean Corpuscular Hemoglobin 29.3 pg (27.0-31.0); Mean Corpuscular Volume 91.1 fL (78.0-102.0); Mean Platelet Volume 9.4 fl (8.7-11.0); Monocytes Percent Auto 5.8 % (2.0-11.0); Neutrophils Absolute Auto 13.42 K/mm3 (1.70-7.20); Platelet Count Result 343 K/mm3 (150-420); Red Blood Count 3.38 M/mm3 (4.70-6.10); Red Cell Distribution Width 14.9 % (11.6-14.4); White Blood Count 15.6 K/mm3 (4.8-10.8)
[2024-08-13] MEDS: SODIUM CHLORIDE 0.9% IV 1,000 ML 999 ML IV CONT (15:09)
[2024-08-13] MEDS: ONDANSETRON INJ 4 MG/2 ML VIAL IV PUSH (15:12)
[2024-08-13 15:17] LABS: Alanine Aminotransferase 32 U/L (16-63); Albumin Level 3.2 g/dL (3.4-5.0); Alkaline Phosphatase 115 U/L (46-116); Anion Gap 6 mmol/L (4-12); Aspartate Amino Transferase 27 U/L (15-37); Bilirubin,Total 1.7 mg/dL (0.00-1.00); Blood Urea Nitrogen 20 mg/dL (7-18); Calcium 9.1 mg/dL (8.5-10.1); Carbon Dioxide 32 mmol/L (21-32); Chloride 96 mmol/L (98-108); Estimated Glomerular Filt Rate 60; Glucose 106 mg/dL (70-99); Lipase 22 U/L (16-77); Osmolality Calculated 280 mOsm/kg (285-295); Potassium 4.7 mmol/L (3.5-5.1); Sodium 134 mmol/L (136-145); Total Protein 7.4 g/dL (6.4-8.2)
[2024-08-13 15:20] LABS: CRP 0.7 mg/dL (0.0-0.9)
[2024-08-13 15:30] VITALS: BP 123/61; PULSE 63; RESP 16; O2SAT 97
[2024-08-13 16:00] VITALS: BP 105/62; PULSE 63; RESP 13; O2SAT 94
--- OUTSIDE RECORDS SUMMARY | 2024-08-13 16:14 | XMS_ITS | Clinical Summary ---
Author Organization [facility] Address [facility]ly [facility] [place] [address] Care Team Providers Care Investigator Name Role Phone Dandy Hoff MD Unavailable Unavail able Shin Gudino MD Primary Care Provider [phone] Suzanna Gregorio MD Unavailable [phone] Allergies No known active allergies Medications ciprofloxacin [...] Td Vaccines ( 1 - Tdap) 1973 Pneumococcal Vaccine: 50+ Ye ars (1 of 1 - PCV) 2004 Zoster Vaccines (1 of 2) 2004 COVID-19 Vaccine (1 - 2023-2 5 season) [...] age to complete this topic Care Teams Investigator Relationship Specialty Start Date End Date Shin Gudino MD [address] [place] [address] PCP - General FAMILY PRACTICE 11/18/16 Dandy Hoff MD CARDIOVASCULAR DISEASE 11/18/16 Suz[place] [address] SURGERY 11/18/16
--- OUTSIDE RECORDS SUMMARY | 2024-08-13 16:14 | XMS_ITS | Referral Summary ---
Author Organization [facility] Address [address] [place] [address] Care Team Providers Care Flue Cleaner Name Role Phone Maria Del Carmen Rico MD Primary Care Provider Encounters Date Type Department Care Team Description 08/13/2024 Telephone [facility] Case Management [address] [place] [address] Ángel Tyler RN 08/07/2024 9:52 AM CDT - 08/08/2024 10:24 AM CDT Hospital Encounter [facility] [address] [place] [address] Jerry Tolentino MD Primary osteoarthritis of left hip [M16.12] (Primary Dx) Discharge Disposition: Discharge to home or self care 08/07/2024 11:45 AM CDT - 08/07/2024 2:25 PM CDT Surgery [facility] Operating Room [address] [address] Jerry Tolentino MD COMPLEX ARTHROPLASTY TOTAL HIP - LINDA ROBOTIC ARM - DERIAN 08/07/2024 11:15 AM CDT Anesthesia Event [facility] Operating Room 39421 [address] [address] Dean Hull MD Mallette, Allison Anne, NP 07/30/2024 Telephone [facility] Orthopaedic Surgery [address] [place] [address] Medical Office Building [address] [place] [id number] Jerry Tolentino MD 07/25/2024 Orders Only [facility] Orthopaedic Surgery [address] [facility] 6th [place] [address] [place] [address] Jerry Tolentino MD 07/17/2024 Telephone [facility] Orthopaedic Surgery [address] [facility] 6th [place] [address] [place] [address] Ingrid Mims RN 07/08/2024 11:45 AM CDT Lab [facility] [address] [address] [address] Right hip pain; Primary osteoarthritis of right hip; Disorder of cartilage, unspecified 07/08/2024 11:30 AM CDT Pre-Admission Testing [facility] Pre-Anesthesia Testing 20478MARY Cole [address] 07/08/2024 12:24 PM CDT - 07/08/2024 11:59 PM CDT Hospital Encounter [facility] Imaging 30653MARY Cole [address] Left hip pain Discharge Disposition: Discharge to home or self care 06/14/2024 Orders Only [facility] Orthopaedic Surgery [address] [facility] 6th [place] [address] [place] [address] Jez Phillip MD Left hip pain (Primary Dx) from Last 3 Months Allergies No known active allergies Medications allopurinoL (ZYLOPRIM) 100 mg tabletIndicati ons:prevention of acute gout attack Take 1 tablet (100 mg total) by mouth every morning 4 Active atorvastatin (LIPITOR) 80 mg tabletIndicati ons:hyperlipid emia Take 1 tablet (80 mg total) by mouth every morning 4 Active clobetasoL (TEMOVATE) 0.05 % cream APPLY 1 (ONE) GRAM AT BEDTIME 4 Active furosemide (LASIX) 40 mg tabletIndicati ons:Edema,hype rtension Take 1 tablet (40 mg total) by mouth every morning Active lisinopriL (PRINIVIL,ZEST RIL) 10 mg tablet Take 1 tablet (10 mg total) by mouth every morning Active metoprolol tartrate (LOPRESSOR) 75 mg tablet immediate release tabletIndicati ons:hypertensi on Take 1 tablet (75 mg total) by mouth every morning 4 Active spironolactone (ALDACTONE) 25 mg tabletIndicati ons:hypertensi on Take 1 tablet (25 mg total) by mouth every morning Active oxyCODONE (ROXICODONE) 5 mg immediate release tabletIndicati ons:Pain Take 1 tablet (5 mg total) by mouth every 4 (four) hours as needed for pain (breakthrough ) 30 tablet 5 Active traMADoL (ULTRAM) 50 mg tablet Take 1 tablet (50 mg total) by mouth every 8 (eight) hours as needed for pain 42 tablet 5 Active aspirin 81 mg enteric coated tabletIndicati ons:Deep Vein Thrombosis Prevention Take 1 tablet (81 mg total) by mouth 2 (two) times a day 60 tablet 5 09/08/19 25 Active senna-docusate (PERICOLACE) 8.6-50 mgIndications: constipation Take 2 tablets by mouth 2 (two) times a day 80 tablet 5 Active acetaminophen 500 mg capsuleIndicat ions:Pain Take 2 capsules (1,000 mg total) by mouth every 8 (eight) hours 90 tablet 5 Active aspirin 81 mg enteric coated tabletIndicati ons:Heart health Take 1 tablet (81 mg total) by mouth every morning 08/09/19 25 Discontinue d(Stop Taking at Discharge) meloxicam (MOBIC) 15 mg tablet Take 1 tablet (15 mg total) by mouth daily 4 08/08/19 25 Discontinue d(Therapy completed) multivit-min/f errous fumarate (MULTI VITAMIN ORAL) Take 1 tablet by mouth every morning 08/09/19 25 Discontinue d(Stop Taking at Discharge) acetaminophen/ diphenhydramin e (TYLENOL PM EXTRA STRENGTH ORAL) Take 2 tablets by mouth nightly 08/09/19 25 Discontinue d(Stop Taking at Discharge) mv-mn/C/glutam in/lysin/herb1 24 (AIR[place]ORNE, ASCORBATE SODIUM, ORAL) Take 1 tablet by mouth every morning 08/09/19 25 Discontinue d(Stop Taking at Discharge) mupirocin (BACTROBAN) 2 % ointment Apply topically 2 (two) times a day for 5 days APPLY TO NOSTRILS TWICE A DAY. STARTING 5 DAYS PRIOR TO SURGERY. 22 g 5 07/31/19 25 Active Problems Problem Noted Date Diagnosed Date [...] you have a drink containing alcohol? Never 08/07/2024 Q2: How many drinks containi ng alcohol do you have on a typical day when you are drinking? Patient does not drink Q3: How often do you have si x or more drinks on one occasion? Never 08/07/2024 Personal Safety Answer Date Recorded Have you ever been in or are you currently in a harmful physical or emotional relationship or is someone making you feel afraid or unsafe? 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 Gender Identity Not on file Sexual Orientation Not on file Last Filed Vital Signs Vital Sign Reading Time Taken Comments Blood Pressure 120/59 08/08/2024 7:54 AM CDT Pulse 90 08/08/2024 7:54 AM CDT Temperature 36.4 C (97.6 F) 08/08/2024 7:54 AM CDT Respiratory Rate 18 08/08/2024 7:54 AM CDT Oxygen Saturation 97% 08/08/2024 7:54 AM CDT Inhaled Oxygen Concentration - - Weight 77 kg (169 lb 12.1 oz) 08/07/2024 11:00 A M CDT Height 172.7 cm (5' 8 ) 07/08/2024 11:15 AM CDT Body Mass Index 25.81 07/08/2024 11:15 AM CDT Plan of Treatment Not on file Medical Devices Implanted Type Area Parole Director Device Identifier Shelf Expiration Date Model / Serial / Lot Gui Right: Femur Screws Left: Foot Description:Plaate and screw s L hip [employer] Shell Acetabular Trident Ii Tritanium E Od52mm Hip 5 Screw Hole Cluster Sterile 702-04-52e - [id number] Implanted:Qty: 1 on 08/07/2024 at [facility] Left: Hip [employer] 03/27/2029 702-04-52E / / [id number] [employer] Liner Acetabular Hip Trident X3 40mm Polyethylene 0 Degree Size E 723-00-40e - [id number] Implanted:Qty: 1 on 08/07/2024 at [facility] Left: Hip [employer] 03/31/2029 723-00-40E / / [id number] [employer] Stem Femoral Hip Collared Insignia 38.7w843nl High Offset Size 6 5268-4577 - [id number] Implanted:Qty: 1 on 08/07/2024 at [facility] Left: Hip [employer] 06/07/2029 7994-8712 / / [id number] [employer] 40mm Hip [place] Taper Head Femoral Biolox Delta 6519-1-040 - [id number] Implanted:Qty: 1 on 08/07/2024 at [facility] Left: Hip [employer] 06/09/2029 6519-1-040 / / [id number] [employer] V40 Hip +4mm Offset [place] Taper Sleeve Adapter Titanium 6519-T-204 - [id number] Implanted:Qty: 1 on 08/07/2024 at [facility] Left: Hip [employer] 05/20/2029 6519-T-204 / / [id number] Explanted Type Area Parole Director Device Identifier Shelf Expiration Date Model / Serial / Lot [employer] Component Navigation Orthopedic Knee Instrument 132 Degree Linda [id number] - [id number] Explanted:Qty: 1 on 08/07/2024 at [facility] Left: Hip [employer] 01/21/2029 [id number] / / [id number] Procedures Procedure Name Priority Date/Time Associated Diagnosis Comments EGFR Routine 08/08/2024 4:32 AM CDT HEMOGLOBIN AND HEMATOCRIT Routine 08/08/2024 4:32 AM CDT BASIC METABOLIC PANEL Routine 08/08/2024 4:32 AM CDT XR PELVIS ORTHO VIEW ED Urgent/IP Urgent 08/07/2024 1:34 PM CDT ARTHROPLASTY TOTAL HIP - LINDA ROBOTIC ARM - DERIAN 08/07/2024 11:20 AM CDT Right hip pain Primary osteoarthritis of left hip Special Needs Linda Robot [place] AN PROCEDURE PLACEHOLDER Routine 08/07/2024 11:[address] HIP LEFT WO CONTRAST Schedule Routine, [...] hip pain Primary osteoarthritis of right hip from Last 3 Months Results * eGFR (08/08/2024 4:32 AM CDT) eGFR 64 >=60 mL/min/1. 73 m2 Comment: Interpretive Data [...] interpretive data was last reviewed 2021. Blood 08/08/2024 4:32 AM CDT 08/08/2024 4:58 AM CDT Chris Cole MD LAB BLOOD ORDERABLES Final Result [facility] [address] [facility] [address] * (ABNORMAL) Hemoglobin and hematocrit (08/08/2024 4:32 AM CDT) [facility] Hgb 9.5(L) 13.0 - 17.5 g/dL Hct 28.8(L) 38.9 - 50.3 % [facility] Blood 08/08/2024 4:32 AM CDT 08/08/2024 4:58 AM CDT Chris Cole MD LAB BLOOD ORDERABLES Final Result [facility] [address] [facility] [address] [place], [place] [id number] * (ABNORMAL) Basic metabolic panel (08/08/2024 4:32 AM CDT) Sodium 131(L) 135 - 145 mmol/L Potassium, pl 4.6 3.3 - 4.9 mmol/L [facility] Chloride 98 97 - 110 mmol/L [facility] CO2 23 22 - 32 mmol/L [facility] Anion gap 10 2 - 15 mmol/L [facility] BUN 23 6 - 25 mg/dL [facility] Creatinine 1.22 0.80 - 1.30 mg/dL [facility] Glucose 130 70 - 199 mg/dL [facility] Comment: Interpretive Data Fasting glucose >/= 126 [...] interpretive data was last revised 2022. Calcium 8.8 8.5 - 10.3 mg/dL [facility] Blood 08/08/2024 4:32 AM CDT 08/08/2024 4:58 AM CDT Chris Cole MD LAB BLOOD ORDERABLES Final Result Performing Organization Address City/State/[facility] Co [place] Phone Number JAC[facility]IE [facility] [address] [facility] Department [place] [address] * XR Pelvis Ortho View (08/07/2024 1:34 PM CDT) Anatomical Region Laterality Modality Body, Pelvis N/A Computed Radiogr aphy 08/07/2024 1:41 PM CDT Impressions 08/07/2024 1:41 PM CDT 1. 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 Electronically signed by: Jarocho Greenberg M.D. Narrative 08/07/2024 1:41 PM CDT EXAMINATION: XR PELVIS ORTHO VIEW HISTORY: Left hip osteoarthritis, pelvic fractures COMPARISON: 04/30/2024 FINDINGS: AP pelvis excluding the tops of the iliac bones is performed. There is a new left total hip arthroplasty in expected position. There is postoperative soft tissue gas. No fracture is present. There is a healed, nailed proximal right femur fracture. There is a healed, internally fixated left acetabular fracture. There is bilateral sacroiliac and pubic symphysis fixation for treatment of pelvic ring injury, with unchanged broken left-sided pubic plate and screw. Procedure Note Jarocho Greenberg MD - 08/07/2024 EXAMINATION: XR PELVIS ORTHO VIEW HISTORY: Left hip osteoarthritis, pelvic fractures COMPARISON: 04/30/2024 FINDINGS: AP pelvis excluding the tops of the iliac bones is performed. There is a new left total hip arthroplasty in expected position. There is postoperative soft tissue gas. No fracture is present. There is a healed, nailed proximal right femur fracture. There is a healed, internally fixated left acetabular fracture. There is bilateral sacroiliac and pubic symphysis fixation for treatment of pelvic ring injury, with unchanged broken left-sided pubic plate and screw. IMPRESSION: 1. 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 Electronically signed by: Jarocho Greenberg M.D. Chris Cole MD IMG XR PROCEDURES Fi nal Result * [place] AN PROCEDURE PLACEHOLDER (08/07/2024 11:12 AM CDT) Narrative Dean Hull MD - 08/07/2024 11:12 AM CDT Dean Hull MD 08/07/2024 11:12 AM Spinal Block Patient location: pre-op holding Reason for block: primary anesthetic Procedure prep: Preprocedure checklist: patient identified, procedure contraindications assessed, site marked, procedure consent, surgical consent, IV checked, risks, benefits and alternatives discussed, monitors and equipment checked and timeout performed Patient position: sitting Procedure performed while patient: sedate with meaningful contact Monitoring: oximetry and blood pressure Supplemental O2: nasal cannula Prep solution: chlorhexadine/alcohol PPE: sterile gloves, provider hat/mask and sterile drape Skin infiltrated with lidocaine 1%: yes Spinal: Approach: midline Introducer used: yes Location: L2-3 Spinal injection: CSF demonstrated, no aspiration of heme and no paresthesias noted Number of attempts: 1 Spinal Needle: Needle type: Rochelle Eliu (Getie Eliu) Needle gauge: 25 G Needle length: 9 cm Assessment: Events: patient tolerated procedure well with no complications Dean Hull MD ANESTHESIA ORDERABLES Fi nal Result * CT Hip Left WO Contrast (07/08/2024 [...] by: Miguelito Felton MD Jez Phillip MD IMG CT PROCEDURES Final [...] of Race in Diagnosing Kidney Disease, JASN 202). The CKD-EPI equation should not be used for patients with unstable renal function and has not been validated in children and those over 70. Current interpretive data was last reviewed 2021. Blood 07/08/2024 12:1 9 PM CDT 07/08/2024 12:28 PM CDT us Jerry Tolentino MD LAB BLOOD ORDERABLES Final Result [facility] [address] [facility]. Department [place] [address] * (ABNORMAL) Differential, auto (07/08/2024 12:19 PM CDT) Neutrophil abs 7.3(H) 1.5 - 6.5 K/cumm Imm gran abs 0.0 0.0 - 0.1 K/cumm [facility] Lymphocyte abs 2.0 0.8 - 3.3 K/cumm [facility] Monocyte abs 1.0(H) 0.2 - 0.8 K/cumm [facility] Eosinophil abs 0.3 0.0 - 0.5 K/cumm [facility] Basophil abs 0.1 0.0 - 0.1 K/cumm [facility] Neutrophil pct 68.4 % [facility] Comment: Interpretive Data Percent cell count reference ranges are not reported, since discordance with absolute values may lead to misinterpretation of CBC data. Current Interpretive Data was last revised on 2017. Imm gran pct 0.3 % [facility] Comment: Interpretive Data Percent cell count reference [...] on 2017. Eosinophil pct 3.1 % [facility] Comment: Interpretive Data Percent cell count reference ranges are not reported, since discordance with absolute values may lead to misinterpretation of CBC data. Current Interpretive Data was last revised on 2017. Basophil pct 0.5 % [facility] Comment: Interpretive Data Percent cell count reference ranges are not reported, since discordance with absolute values may lead to misinterpretation of CBC data. Current Interpretive Data was last revised on 2017. Blood 07/08/2024 12:1 9 PM CDT 07/08/2024 12:28 PM CDT Jerry Tolentino MD LAB BLOOD ORDERABLES Final Result Performing Organization Address [facility] Co de Phone Number JACQUIE ALVAREZ [address] [facility] [address] [address] * (ABNORMAL) CBC with auto differential (07/08/2024 12:19 PM CDT) WBC 10.7(H) 3.8 - 9.9 K/cumm Hgb 13.7 13.0 - 17.5 g/dL [facility] Hct 41.2 38.9 - 50.3 % [facility] Plt 303 150 - 400 K/cumm [facility] MPV 10.7 9.1 - 12.3 fL [facility] RBC 4.62 4.30 - 5.80 M/cumm [facility] MCV 89.2 81.3 - 96.4 fL [facility] MCH 29.7 27.1 - 33.3 pg [facility] MCHC 33.3 32.3 - 35.7 g/dL [facility] RDW CV 14.6 11.1 - 14.9 % [facility] RDW SD 47.1 35.7 - 48.1 fL [facility] NRBC abs 0.00 0.00 - 0.01 K/cumm [facility] Blood 07/08/2024 12:1 9 PM CDT 07/08/2024 12:28 PM CDT Jerry Tolentino MD LAB BLOOD ORDERABLES Final Result Performing Organization Address [facility]/ZIP Co de Phone Number JACQUIE ALVAREZ [address] [facility] [address] [address] * Vitamin D 25 hydroxy (07/08/2024 12:19 PM CDT) Vitamin D 25-OH 30 30 - 80 ng/mL Blood 07/08/2024 12:1 9 PM CDT 07/08/2024 12:28 PM CDT Jerry Tolentino MD LAB BLOOD ORDERABLES Final Result [facility] [address] [facility]. Department [place] [address] * Comprehensive metabolic panel (07/08/2024 12:19 PM CDT) Pathologist [facility] Sodium 138 135 - 145 mmol/L Potassium, pl 4.3 3.3 - 4.9 mmol/L [facility] Chloride 103 97 - 110 mmol/L [facility] CO2 25 22 - 32 mmol/L [facility] Anion gap 10 2 - 15 mmol/L [facility] BUN 16 6 - 25 mg/dL [facility] Creatinine 0.97 0.80 - 1.30 mg/dL [facility] Glucose 70 70 - 199 mg/dL [facility] Comment: Interpretive Data Fasting glucose >/= [...] LAB BLOOD ORDERABLES Final Result [facility]ACQUIE LANIER[facility] [address] [facility]. Department [place] [address] from Last 3 Months Insurance [facility] [place] [employer] [employer] [facility] [place] Address: [place] [id number] [place] [id number] [facility] [place] [employer] AD[employer] [facility] Address: [address] [address] [place] [address] Advance Directives For more information, please contact: [phone] * Full Code (Latest Code Status on File) Date Activated Date Inactivated Comments 08/07/2024 2:22 PM 08/08/2024 2:24 PM Care Teams Flue Cleaner Relationship Specialty Start Date End Date Maria Del Carmen Rico MD [address] [place] [address] PCP - General Family Medicine 03/18/24
--- OUTSIDE RECORDS SUMMARY | 2024-08-13 16:14 | XMS_ITS | Encounter Summary ---
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 17 referrals sent. CM unsuccessful getting an agency due tostaffing. RONEL made Dr. Tolentino's nurse Adelisa aware via secure chat. FIDELIA Ruiz, RN Nurse Infection Control Coordinator documented in this encounter Plan of Treatment Not on file documented as of this encounter Visit Diagnoses Not on filedocumented in this encounter Care Teams Crocheter Hand Relationship Specialty Start Date End Date Maria Del Carmen Rico MD [address] [place], [place] [id number] PCP - General Family Medicine 03/18/24 documented as of this encounter
--- OUTSIDE RECORDS SUMMARY | 2024-08-13 16:14 | XMS_ITS | Clinical Summary ---
Author Organization [facility] Address [address] [facility] [place] [address] Care Team Providers Care Electronic Organ Technician Name Role Phone Maria Del Carmen Rico [...] Type Department Care Team Description 08/13/2024 Telephone [facility] Case Management [address] [place] [address] Ángel Tyler RN 08/07/2024 11:45 AM CDT - 08/07/2024 2:25 PM CDT Surgery [facility] Operating Room [address] [place] [address] Jerry Tolentino MD COMPLEX ARTHROPLASTY TOTAL HIP - LINDA ROBOTIC ARM - DERIAN 08/07/2024 11:15 AM CDT Anesthesia Event [facility] Operating Room [address] [place] [address] Dean Hull MD Mallette, Allison Anne, NP 08/07/2024 9:52 AM CDT - 08/08/2024 10:24 AM CDT Hospital Encounter [facility] [address] [place] [address] Jerry Tolentino MD Primary osteoarthritis of left hip [M16.12] (Primary Dx) Discharge Disposition: Discharge to home or self care 07/30/2024 Telephone [facility] Orthopaedic Surgery [facility] Medical Office Building [address] [place] [address] Jerry Tolentino MD 07/25/2024 Orders Only [facility] Orthopaedic Surgery [address] [facility] Advanced Medicine 6th [place] [address] [place] [address] Jerry Tolentino MD 07/17/2024 Telephone [facility] Orthopaedic Surgery [address] [facility] 6th [place] [address] [place] [address] Ingrid Mims RN 07/08/2024 12:24 PM CDT - 07/08/2024 11:59 PM CDT Hospital Encounter [facility] Imaging [address] [place] [address] Left hip pain Discharge Disposition: Discharge to home or self care 07/08/2024 11:45 AM CDT Lab [facility] [address] [address] Right hip pain; Primary osteoarthritis of right hip; Disorder of cartilage, unspecified 07/08/2024 11:30 AM CDT Pre-Admission Testing [facility] Pre-Anesthesia Testing [address] [address] 06/14/2024 Orders Only [facility] Orthopaedic Surgery [address] [facility] 6th [place] [address] [place] [address] Jez Phillip MD Left hip pain (Primary Dx) from Last 3 Months Surgical History Surgery Date Site/Laterality Comments MULTIPLE TOOTH EXTRACTIONS ORIF PUBIC SYMPHYSIS 04/24/2008 - 04/23/2009 ORIF ACETABULUM FRACTURE 04/24/2008 - 04/23/2009 Left WRIST FRACTURE SURGERY Left Medical History Medical History Date Comments CHF (congestive heart failure) (HCC) Family History Medical History Relation Name Comments [...] on file 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 Gender Identity Not on file Sexual Orientation [...] 07/08/2024 11:15 AM CDT Plan of Treatment Health Maintenance Due Date Last Done Comments Colon Cancer Screening-Colonoscopy 1954 Depression Screening 1954 Hepatitis C Screening 1954 Prostate Cancer Screening-PSA 1954 DTaP/Tdap/Td Vaccine (1 - Tdap) 1965 Hepatitis B Screening 1972 Pneumococcal vaccine 65+ (1 of 1 - PCV) 2004 Zoster Vaccine (1 of 2) 2004 Well Visit 65+ 11/24/2019 Influenza Vaccine (Season Ended) 2024 Fall Risk Assessment 08/08/2025 08/08/2024 Medical Devices Implanted Type Area [employer] Pin [employer] Manager Device Identifier Shelf Expiration Date Model / Serial / Lot Gui Right: Femur Screws Left: Foot Description:Plaate and screw s L hip [employer] Shell Acetabular Trident Ii Tritanium E Od52mm Hip 5 Screw Hole Cluster Sterile 702-04-52e - [id number] Implanted:Qty: 1 on 08/07/2024 at [facility] Left: Hip [employer] 03/27/2029 702-04-52E / / [id number] [employer] Liner Acetabular Hip Trident X3 40mm Polyethylene 0 Degree Size E 723-00-40e - [id number] Implanted:Qty: 1 on 08/07/2024 at [facility] Left: Hip [employer] 03/31/2029 723-00-40E / / [id number] [employer] Stem Femoral Hip Collared Insignia 38.4e790xx High Offset Size 6 1353-3299 - [id number] Implanted:Qty: 1 on 08/07/2024 at [facility] Left: Hip [employer] 06/07/2029 7821-0161 / / [id number] [employer] 40mm Hip [place] Taper Head Femoral Biolox Delta 6519-1-040 - [id number] Implanted:Qty: 1 on 08/07/2024 at [facility] Left: Hip [employer] 06/09/2029 6519-1-040 / / [id number] [employer] V40 Hip +4mm Offset [place] Taper Sleeve Adapter Titanium 6519-T-204 - [id number] Implanted:Qty: 1 on 08/07/2024 at [facility] Left: Hip [employer] 05/20/2029 6519-T-204 / / [id number] Explanted Type Area [employer] Pin [place] Manager Device Identifier Shelf Expiration Date Model / Serial / Lot [employer] Component Navigation Orthopedic Knee Instrument 132 Degree Linda [id number] - [id number] Explanted:Qty: 1 on 08/07/2024 at [facility] Left: Hip [employer] 01/21/2029 [id number] / / [id number] Procedures Procedure Name Priority Date/Time Associated [...] of left hip Special Needs Linda Robot IA AN PROCEDURE PLACEHOLDER Routine 08/07/2024 11:12 AM [...] 4:32 AM CDT 08/08/2024 4:58 AM CDT us Chris Cole MD LAB BLOOD ORDERABLES Final Result [facility] [address] [facility] [place] [address] * (ABNORMAL) Hemoglobin and hematocrit (08/08/2024 4:32 AM CDT) Pathologist [facility] Hgb 9.5(L) 13.0 - 17.5 g/dL Hct 28.8(L) 38.9 - 50.3 % [facility] Blood 08/08/2024 4:32 AM CDT 08/08/2024 4:58 AM CDT us Chris Cole MD LAB BLOOD ORDERABLES Final Result JACQUIE [facility] [address] [facility] [place] [address] * (ABNORMAL) Basic metabolic panel (08/08/2024 4:32 AM CDT) Pathologist [facility] Sodium 131(L) 135 - 145 mmol/L Potassium, pl 4.6 3.3 - 4.9 mmol/L [facility] Chloride 98 97 - 110 mmol/L [facility] CO2 23 22 - 32 mmol/L [facility] Anion gap 10 2 - 15 mmol/L [facility] BUN 23 6 - 25 mg/dL [facility] Creatinine 1.22 0.80 - 1.30 mg/dL [facility] Glucose 130 70 - 199 mg/dL [facility] Comment: Interpretive Data Fasting glucose >/= 126 [...] 2022. Calcium 8.8 8.5 - 10.3 mg/dL [facility] Blood 08/08/2024 4:32 AM CDT 08/08/2024 4:58 AM CDT us Chris Cole MD LAB BLOOD ORDERABLES Final Result J[facility]QUIE [facility] [address] [address] [facility]. Department [place] [address] * XR Pelvis Ortho View (08/07/2024 1:34 [...] IMG XR PROCEDURES Fi nal Result * IA AN PROCEDURE PLACEHOLDER (08/07/2024 11:12 AM CDT) Dean Ulrich MD - 08/07/2024 11:12 AM CDT Dean [...] Tolentino MD LAB BLOOD ORDERABLES Final Result [facility] [address] [facility]. Department [place] [address] * (ABNORMAL) Differential, auto (07/08/2024 12:19 PM [...] K/cumm [facility] Neutrophil pct 68.4 % [facility] Comment: Interpretive Data Percent cell count reference ranges are not reported, since discordance with absolute values may lead to misinterpretation of CBC data. Current Interpretive Data was last revised on 2017. Imm gran pct 0.3 % [facility] Comment: Interpretive Data Percent cell count [...] on 2017. Eosinophil pct 3.1 % JACQUIE ALVARE[facility] Comment: Interpretive Data Percent [...] Tolentino MD LAB BLOOD ORDERABLES Final Result [facility] [address] [facility]. Department [place] [address] * (ABNORMAL) CBC with auto differential (07/08/2024 12:19 PM CDT) WBC 10.7(H) 3.8 - 9.9 K/cumm Hgb 13.7 13.0 - 17.5 g/dL [facility] Hct 41.2 38.9 - 50.3 % [facility] Plt 303 150 - 400 K/cumm [facility] MPV 10.7 9.1 - 12.3 fL JACQUIE [facility] RBC 4.62 4.30 - 5.80 M/cumm [facility] MCV 89.2 81.3 - 96.4 fL [facility] MCH 29.7 27.1 - 33.3 pg [facility] MCHC 33.3 32.3 - 35.7 g/dL [facility] BJW RDW CV 14.6 11.1 - 14.9 % [facility] BJW RDW SD 47.1 35.7 - 48.1 fL [facility] NRBC abs 0.00 0.00 - 0.01 K/cumm [facility] Blood 07/08/2024 12:1 9 PM CDT 07/08/2024 12:28 PM CDT Jerry Tolentino MD LAB BLOOD ORDERABLES Final Result Performing Organization Address [facility] Co de Phone Number JACQUIE LANIER [address] [facility] [place] [address] * Vitamin D 25 hydroxy (07/08/2024 12:19 PM CDT) Pathologist [facility] Vitamin D 25-OH 30 30 - 80 ng/mL Blood 07/08/2024 12:1 9 PM CDT 07/08/2024 12:28 PM CDT Jerry Tolentino MD LAB BLOOD ORDERABLES Final Result Performing Organization Address [facility] de Phone Number [facility] [address] [facility] [place] [address] * Comprehensive metabolic panel (07/08/2024 12:19 PM CDT) Pathologist [facility] Sodium 138 135 - 145 mmol/L Potassium, pl 4.3 3.3 - 4.9 mmol/L [facility] Chloride 103 97 - 110 mmol/L [facility] CO2 25 22 - 32 mmol/L [facility] Anion gap 10 2 - 15 mmol/L [facility] BUN 16 6 - 25 mg/dL [facility] Creatinine 0.97 0.80 - 1.30 mg/dL [facility] Glucose 70 70 - 199 mg/dL CERNER [...] BLOOD ORDERABLES Final Result Performing Organization Address City/State/ZIP Co sd Phone Number JACQUIE MINCH [address] [facility] Department [place] [address] from Last 3 Months Insurance [facility] MEDICARE ADVANTAGE [facility] MEDICARE Address: [address] [address] [place] [address] [facility] MEDICARE ADVANTAGE [facility] MEDICARE Address: [address] [address] [place] [address] Advance Directives For more information, please contact: [phone] * Full Code (Latest Code Status on File) Date Activated Date Inactivated Comments 08/07/2024 2:22 PM 08/08/2024 2:24 PM Care Teams Electronic Organ Technician Relationship Specialty Start Date End Date Maria Del Carmen Rico MD [address] [place] [address] PCP - General Family Medicine 03/18/24
[2024-08-13 16:30] VITALS: BP 108/60; PULSE 66; RESP 15; TEMP 36.7; O2SAT 94
--- OUTSIDE RECORDS SUMMARY | 2024-08-13 17:10 | XMS_ITS | Clinical Summary ---
Author Organization [facility] Address [address] [facility] [place] [address] Care Team Providers Care Biometric Technician Name Role Phone Maria Del Carmen [...] Type Department Care Team Description 08/13/2024 Telephone [facility] Case Management [address] [place] [address] Ángel Tyler RN 08/07/2024 11:45 AM CDT - 08/07/2024 2:25 PM CDT Surgery [facility] Operating Room [address] [place] [address] Jerry Tolentino MD COMPLEX ARTHROPLASTY TOTAL HIP - LINDA ROBOTIC ARM - DERIAN 08/07/2024 11:15 AM CDT Anesthesia Event [facility] Operating Room [address] [place] [address] Dean Hull MD Mallette, Allison Anne, NP 08/07/2024 9:52 AM CDT - 08/08/2024 10:24 AM CDT Hospital Encounter [facility] [address] [place] [address] Jerry Tolentino MD Primary osteoarthritis of left hip [M16.12] (Primary Dx) Discharge Disposition: Discharge to home or self care 07/30/2024 Telephone [facility] Orthopaedic Surgery [facility] Medical Office Building [address] [place] [address] Jerry Tolentino MD 07/25/2024 Orders Only [facility] Orthopaedic Surgery [address] [facility] Advanced Medicine 6th [place] [address] [place] [address] Jerry Tolentino MD 07/17/2024 Telephone [facility] Orthopaedic Surgery [address] [facility] Medicine 6th [place] [address] [place] [address] Ingrid Mims RN 07/08/2024 12:24 PM CDT - 07/08/2024 11:59 PM CDT Hospital Encounter [facility] Imaging [address] [place] [address] Left hip pain Discharge Disposition: Discharge to home or self care 07/08/2024 11:45 AM CDT Lab [facility] [address] [address] Right hip pain; Primary osteoarthritis of right hip; Disorder of cartilage, unspecified 07/08/2024 11:30 AM CDT Pre-Admission Testing [facility] Pre-Anesthesia Testing [address] [address] [address] 06/14/2024 Orders Only [facility] Orthopaedic Surgery [address] [facility] 6th [place] [address] [place] [address] Jez Phillip MD Left hip pain (Primary [...] on file 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 Gender Identity Not on file Sexual Orientation [...] 08/08/2025 08/08/2024 Medical Devices Implanted Type Area Document Improvement Specialist Device Identifier Shelf Expiration Date Model / Serial / Lot Gui Right: Femur Screws Left: Foot Description:Plaate and screw s L hip [employer] Shell Acetabular Trident Ii Tritanium E Od52mm Hip 5 Screw Hole Cluster Sterile 702-04-52e - [id number] Implanted:Qty: 1 on 08/07/2024 at [facility] Left: Hip [employer] 03/27/2029 702-04-52E / / [id number] [employer] Liner Acetabular Hip Trident X3 40mm Polyethylene 0 Degree Size E 723-00-40e - [id number] Implanted:Qty: 1 on 08/07/2024 at [facility] Left: Hip [employer] 03/31/2029 723-00-40E / / [id number] [employer] Stem Femoral Hip Collared Insignia 38.1m875ju High Offset Size 6 9707-0833 - [id number] Implanted:Qty: 1 on 08/07/2024 at [facility] Left: Hip [employer] 06/07/2029 7076-9239 / / [id number] [employer] 40mm Hip [place] Taper Head Femoral Biolox Delta 6519-1-040 - [id number] Implanted:Qty: 1 on 08/07/2024 at [facility] Left: Hip [employer] 06/09/2029 6519-1-040 / / [id number] [employer] V40 Hip +4mm Offset [place] Taper Sleeve Adapter Titanium 6519-T-204 - [id number] Implanted:Qty: 1 on 08/07/2024 at [facility] Left: Hip [employer] 05/20/2029 6519-T-204 / / [id number] Explanted Type Area Document Improvement Specialist Device Identifier Shelf Expiration Date Model / Serial / Lot [employer] Component Navigation Orthopedic Knee Instrument 132 Degree Linda [id number] - [id number] Explanted:Qty: 1 on 08/07/2024 at [facility] Left: Hip [employer] 01/21/2029 [id number] / / [id number] Procedures Procedure Name Priority Date/Time Associated [...] of left hip Special Needs Linda Robot [place] AN PROCEDURE PLACEHOLDER Routine 08/07/2024 11:12 AM [...] LAB BLOOD ORDERABLES Final Result [facility] [address] [facility] [place] [address] * (ABNORMAL) Hemoglobin and hematocrit (08/08/2024 4:32 AM CDT) Pathologist [facility] Hgb 9.5(L) 13.0 - 17.5 g/dL Hct 28.8(L) 38.9 - 50.3 % [facility] Blood 08/08/2024 4:32 AM CDT 08/08/2024 4:58 AM CDT us Chris Cole MD LAB BLOOD ORDERABLES Final Result JACQUIE [facility] [address] [facility] [place] [address] * (ABNORMAL) Basic metabolic panel (08/08/2024 4:32 AM CDT) Pathologist [facility] Sodium 131(L) 135 - 145 mmol/L Potassium, pl 4.6 3.3 - 4.9 mmol/L [facility] Chloride 98 97 - 110 mmol/L [facility] CO2 23 22 - 32 mmol/L [facility] Anion gap 10 2 - 15 mmol/L [facility] BUN 23 6 - 25 mg/dL [facility] Creatinine 1.22 0.80 - 1.30 mg/dL [facility] Glucose 130 70 - 199 mg/dL [facility] Comment: Interpretive Data Fasting glucose >/= [...] 2022. Calcium 8.8 8.5 - 10.3 mg/dL [facility] Blood 08/08/2024 4:32 AM CDT 08/08/2024 4:58 AM CDT us Chris Cole MD LAB BLOOD ORDERABLES Final Result J[facility]QUIE [facility] [address] [address] [facility]. [place] [address] * XR Pelvis Ortho View (08/07/2024 1:34 [...] IMG XR PROCEDURES Fi nal Result * [place] AN PROCEDURE PLACEHOLDER (08/07/2024 11:12 AM CDT) [...] Tolentino MD LAB BLOOD ORDERABLES Final Result [facility] [address] [facility]. [place] [address] * (ABNORMAL) Differential, auto (07/08/2024 12:19 PM [...] Tolentino MD LAB BLOOD ORDERABLES Final Result [facility] [address] [facility]. [place] [address] * (ABNORMAL) CBC with auto differential (07/08/2024 12:19 PM CDT) WBC 10.7(H) 3.8 - 9.9 K/cumm Hgb 13.7 13.0 - 17.5 g/dL J[facility]QUIE [facility] Hct 41.2 38.9 - 50.3 % [facility]IE [facility] Plt 303 150 - 400 K/cumm JACQUIE [facility] MPV 10.7 9.1 - 12.3 fL JACQUIE [facility] RBC 4.62 4.30 - 5.80 M/cumm JAC[facility]IE [facility] MCV 89.2 81.3 - 96.4 fL [facility] MCH 29.7 27.1 - 33.3 pg [facility] MCHC 33.3 32.3 - 35.7 g/dL [facility] BJW RDW CV 14.6 11.1 - 14.9 % [facility] BJW RDW SD 47.1 35.7 - 48.1 fL [facility] NRBC abs 0.00 0.00 - 0.01 K/cumm [facility] Blood 07/08/2024 12:1 9 PM CDT 07/08/2024 12:28 PM CDT Jerry Tolentino MD LAB BLOOD ORDERABLES Final Result Performing Organization Address [facility] Co de Phone Number JACQUIE LANIER [address] [facility] [place] [address] * Vitamin D 25 hydroxy (07/08/2024 12:19 PM CDT) Pathologist [facility] Vitamin D 25-OH 30 30 - 80 ng/mL Blood 07/08/2024 12:1 9 PM CDT 07/08/2024 12:28 PM CDT Jerry Tolentino MD LAB BLOOD ORDERABLES Final Result Performing Organization Address [facility] de Phone Number [facility] [address] [facility] [place] [address] * Comprehensive metabolic panel (07/08/2024 12:19 PM CDT) Pathologist [facility] Sodium 138 135 - 145 mmol/L Potassium, pl 4.3 3.3 - 4.9 mmol/L [facility] Chloride 103 97 - 110 mmol/L [facility] CO2 25 22 - 32 mmol/L [facility] Anion gap 10 2 - 15 mmol/L [facility] BUN 16 6 - 25 mg/dL [facility] Creatinine 0.97 0.80 - 1.30 mg/dL [facility] Glucose 70 70 - 199 mg/dL C[facility] [...] Final Result Performing Organization Address City/State/ZIP Co ok Phone Number JACQUIE MINCH [address] [facility] Department [place] [address] from Last 3 Months Insurance [facility] MEDICARE ADVANTAGE [facility] MEDIC[facility] ADVANTAGE Advance Directives For more information, please contact: [phone] * Full Code (Latest Code Status on File) Date Activated Date Inactivated Comments 08/07/2024 2:22 PM 08/08/2024 2:24 PM Care Teams Biometric Technician Relationship Specialty Start Date End Date Maria Del Carmen Rico MD [address] [place] [phone] PCP - General Family Medicine 03/18/24
--- OUTSIDE RECORDS SUMMARY | 2024-08-13 17:10 | XMS_ITS | Clinical Summary ---
Author Organization [facility] Address [facility] [place] [address] Care Team Providers Care Steam Tunnel Feeder Name Role Phone Dandy Hoff MD Unavailable Unavail able Shin Gudino MD Primary Care Provider [phone] Suzanna Gregorio MD Unavailable [phone] Allergies No known active allergies Medications ciprofloxacin [...] age to complete this topic Care Teams Steam Tunnel Feeder Relationship Specialty Start Date End Date Shin Gudino MD [address] [place] [address] PCP - General FAMILY PRACTICE 11/18/16 Dandy Hoff MD CARDIOVASCULAR DISEASE 11/18/16 Suzanna [place] [address] [place] [place] [address] SURGERY 11/18/16
--- OUTSIDE RECORDS SUMMARY | 2024-08-13 17:10 | XMS_ITS | Referral Summary ---
Author Organization [facility] Address [address] [place] [address] Care Team Providers Care Vp Transportation Name Role Phone Maria Del Carmen Rico MD Primary Care Provider Encounters Date Type Department Care Team Description 08/13/2024 Telephone [facility] Case Management [address] [place] [address] Ángel Tyler RN 08/07/2024 9:52 AM CDT - 08/08/2024 10:24 AM CDT Hospital Encounter [facility] [address] [place] [address] Jerry Tolentino MD Primary osteoarthritis of left hip [M16.12] (Primary Dx) Discharge Disposition: Discharge to home or self care 08/07/2024 11:45 AM CDT - 08/07/2024 2:25 PM CDT Surgery [facility] Operating Room 21427 MARY Jalloh [address] Jerry Tolentino MD COMPLEX ARTHROPLASTY TOTAL HIP - LINDA ROBOTIC ARM - DERIAN 08/07/2024 11:15 AM CDT Anesthesia Event [facility] Operating Room 87511 MARY Jalloh [address] Dean Hull MD Mallette, Allison Anne, NP 07/30/2024 Telephone [facility] Orthopaedic Surgery [address] [place] [address] Medical Office Building [address] [place] [address] Jerry Tolentino MD 07/25/2024 Orders Only [facility] Orthopaedic Surgery [address] [facility] 6th [place] [address] [place] [address] Jerry Tolentino MD 07/17/2024 Telephone [facility] Orthopaedic Surgery [address] [facility] 6th [place] [address] [place] [address] Ingrid Mims RN 07/08/2024 11:45 AM CDT Lab [facility] [address] [address] [address] Right hip pain; Primary osteoarthritis of right hip; Disorder of cartilage, unspecified 07/08/2024 11:30 AM CDT Pre-Admission Testing [facility] Pre-Anesthesia Testing 44495MARY Cole [address] 07/08/2024 12:24 PM CDT - 07/08/2024 11:59 PM CDT Hospital Encounter [facility] Imaging 61503MARY Cole [address] Left hip pain Discharge Disposition: Discharge to home or self care 06/14/2024 Orders Only [facility] Orthopaedic Surgery [address] [facility] 6th [place] [address] Jez Phillip MD Left hip pain (Primary [...] on file 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 Gender Identity Not on file Sexual Orientation [...] on file Medical Devices Implanted Type Area Manager Financial Reporting Device Identifier Shelf Expiration Date Model / Serial / Lot Gui Right: Femur Screws Left: Foot Description:Plaate and screw s L hip [employer] Shell Acetabular Trident Ii Tritanium E Od52mm Hip 5 Screw Hole Cluster Sterile 702-04-52e - [id number] Implanted:Qty: 1 on 08/07/2024 at [facility] Left: Hip [employer] 03/27/2029 702-04-52E / / [id number] [employer] Liner Acetabular Hip Trident X3 40mm Polyethylene 0 Degree Size E 723-00-40e - [id number] Implanted:Qty: 1 on 08/07/2024 at [facility] Left: Hip [employer] 03/31/2029 723-00-40E / / [id number] [employer] Stem Femoral Hip Collared Insignia 38.9z990wo High Offset Size 6 5299-7473 - [id number] Implanted:Qty: 1 on 08/07/2024 at [facility] Left: Hip [employer] 06/07/2029 6386-2484 / / [id number] [employer] 40mm Hip [place] Taper Head Femoral Biolox Delta 6519-1-040 - [id number] Implanted:Qty: 1 on 08/07/2024 at [facility] Left: Hip [employer] 06/09/2029 6519-1-040 / / [id number] [employer] V40 Hip +4mm Offset [place] Taper Sleeve Adapter Titanium 6519-T-204 - [id number] Implanted:Qty: 1 on 08/07/2024 at [facility] Left: Hip [employer] 05/20/2029 6519-T-204 / / [id number] Explanted Type Area Manager Financial Reporting Device Identifier Shelf Expiration Date Model / Serial / Lot [employer] Component Navigation Orthopedic Knee Instrument 132 Degree Linda [id number] - [id number] Explanted:Qty: 1 on 08/07/2024 at [facility] Left: Hip [employer] 01/21/2029 [id number] / / [id number] Procedures Procedure Name Priority Date/Time Associated [...] of left hip Special Needs Linda Robot [place] AN PROCEDURE PLACEHOLDER Routine 08/07/2024 11:12 AM [...] LAB BLOOD ORDERABLES Final Result JACQUIE MINWCH [address] [place] [address] * (ABNORMAL) Hemoglobin and hematocrit (08/08/2024 4:32 AM CDT) [facility] Hgb 9.5(L) 13.0 - 17.5 g/dL Hct 28.8(L) 38.9 - 50.3 % JACQUIE ALVAREZ Blood 08/08/2024 4:32 AM CDT 08/08/2024 4:58 AM CDT Chris Cole MD LAB BLOOD ORDERABLES Final Result JACQUIE BJWCH [address] [address] [facility] [employer] [place], [place] [id number] * (ABNORMAL) Basic metabolic panel (08/08/2024 4:32 AM CDT) Sodium 131(L) 135 - 145 mmol/L Potassium, pl 4.6 3.3 - 4.9 mmol/L [facility] Chloride 98 97 - 110 mmol/L [facility] CO2 23 22 - 32 mmol/L [facility] Anion gap 10 2 - 15 mmol/L [facility] BUN 23 6 - 25 mg/dL [facility] Creatinine 1.22 0.80 - 1.30 mg/dL [facility] Glucose 130 70 - 199 mg/dL [facility] Comment: Interpretive Data Fasting glucose >/= [...] 2022. Calcium 8.8 8.5 - 10.3 mg/dL [facility] Blood 08/08/2024 4:32 AM CDT 08/08/2024 4:58 AM CDT Chris Cole MD LAB BLOOD ORDERABLES Final Result Performing Organization Address City/State/[facility] Co ut Phone Number [facility] [address] [facility] Department [place] [address] * XR Pelvis Ortho View (08/07/2024 1:34 [...] IMG XR PROCEDURES Fi nal Result * [place] AN PROCEDURE PLACEHOLDER (08/07/2024 11:12 AM CDT) [...] MD LAB BLOOD ORDERABLES Final Result [facility] [address] [facility]. Department [place] [address] * (ABNORMAL) Differential, auto (07/08/2024 12:19 PM [...] CERNER [facility] Neutrophil pct 68.4 % [facility] Comment: Interpretive Data Percent cell count [...] on 2017. Eosinophil pct 3.1 % [facility] Comment: Interpretive Data Percent cell count [...] BLOOD ORDERABLES Final Result Performing Organization Address [facility] Co de Phone Number JACQUIE ALVAREZ [address] [place] [address] * (ABNORMAL) CBC with auto differential (07/08/2024 12:19 PM CDT) WBC 10.7(H) 3.8 - 9.9 K/cumm Hgb 13.7 13.0 - 17.5 g/dL [facility] Hct 41.2 38.9 - 50.3 % [facility] Plt 303 150 - 400 K/cumm [facility] MPV 10.7 9.1 - 12.3 fL [facility] RBC 4.62 4.30 - 5.80 M/cumm [facility] MCV 89.2 81.3 - 96.4 fL [facility] MCH 29.7 27.1 - 33.3 pg [facility] MCHC 33.3 32.3 - 35.7 g/dL [facility] RDW CV 14.6 11.1 - 14.9 % [facility] RDW SD 47.1 35.7 - 48.1 fL [facility] NRBC abs 0.00 0.00 - 0.01 K/cumm [facility] Blood 07/08/2024 12:1 9 PM CDT 07/08/2024 12:28 PM CDT Jerry Tolentino MD LAB BLOOD ORDERABLES Final Result Performing Organization Address [facility]/ZIP Co de Phone Number JACQUIE ALVAREZ [address] [place] [address] * Vitamin D 25 hydroxy (07/08/2024 12:19 PM CDT) Vitamin D 25-OH 30 30 - 80 ng/mL Blood 07/08/2024 12:1 9 PM CDT 07/08/2024 12:28 PM CDT Jrery Tolentino MD LAB BLOOD ORDERABLES Final Result [facility] [address] [facility]. Department [place] [address] * Comprehensive metabolic panel (07/08/2024 12:19 PM CDT) Pathologist [facility] Sodium 138 135 - 145 mmol/L Potassium, pl 4.3 3.3 - 4.9 mmol/L [facility] Chloride 103 97 - 110 mmol/L [facility] CO2 25 22 - 32 mmol/L [facility] Anion gap 10 2 - 15 mmol/L [facility] BUN 16 6 - 25 mg/dL [facility] Creatinine 0.97 0.80 - 1.30 mg/dL [facility] Glucose 70 70 - 199 mg/dL [facility] Comment: Interpretive Data Fasting glucose >/= [...] LAB BLOOD ORDERABLES Final Result JACQUIE LANIERCH [address] [facility]. Department [place] [address] from Last 3 Months Insurance [employer] MED[employer] ADVANTAGE Member Subscriber Plan / Payer (Ef fective 2023-Present) Name:Amari Lorenzana Sr Relation to Subscriber:Self Name:Amari Lorenzana Sr Payer ID:[id number] (NAIC) Type:[employer] MED[employer] Address: [place] [id number] [place] [id number] [employer] MEDIC[employer] ADVANTAGE Advance Directives For more information, please contact: [phone] * Full Code (Latest Code Status on File) Date Activated Date Inactivated Comments 08/07/2024 2:22 PM 08/08/2024 2:24 PM Care Teams Vp Transportation Relationship Specialty Start Date End Date Maria Del Carmen Rico MD [address] [place] [address] PCP - General Family Medicine 03/18/24
--- OUTSIDE RECORDS SUMMARY | 2024-08-13 17:10 | XMS_ITS | Encounter Summary ---
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 17 referrals sent. CM unsuccessful getting an agency due tostaffing. RONEL made Dr. Tolentino's nurse Adelisa aware via secure chat. FIDELIA Ruiz, RN Nurse Anesthesiology Medical Doctor documented in this encounter Plan of Treatment Not on file documented as of this encounter Visit Diagnoses Not on filedocumented in this encounter Care Teams Cycle Counter Relationship Specialty Start Date End Date Maria Del Carmen Rico MD [address] [place], [place] [id number] PCP - General Family Medicine 03/18/24 documented as of this encounter
== END 2024-08-13 16:30 | disposition home or self-care (01) ==
PROVIDERS: Emergency Provider Family Medicine; PCP Family Medicine
DX: R11.2 Nausea with vomiting, unspecified (principal); R19.7 Diarrhea, unspecified; T40.2X5A Adverse effect of other opioids, initial encounter; E78.5 Hyperlipidemia, unspecified; I11.0 Hypertensive heart disease with heart failure; I50.9 Heart failure, unspecified
CPT/HCPCS: 36415; 80053; 83690; 85025; 86140; 93005; 96361; 96374; 99284; J2405; J7030

== ENCOUNTER 2024-08-15 04:10 | Emergency (ER) | payer MEDICARE, SELFPAY ==
--- NOTE | ~2024-08-15 | XR_ITS ---
Left foot Technique: AP, oblique, and lateral views were obtained. Clinical History: Pain Comparison 03/13/2024 Findings: No acute fracture or dislocation is seen. Stable fusion across the first tarsometatarsal saira int. Chronic healed fracture deformity of the second metatarsal shaft noted.. Soft tissues are unrema rkable. Impression: No acute abnormality. Chronic findings, as above. Reviewed, dictated and finalized at location M. Impression: No acute abnormality. Chronic findings, as above.
--- OUTSIDE RECORDS SUMMARY | 2024-08-15 04:13 | XMS_ITS | Clinical Summary ---
Author Organization [facility] Address [address] [facility] [place] [address] Care Team Providers Care City Weighmaster Name Role Phone Maria Del Carmen Rico [...] Type Department Care Team Description 08/13/2024 Telephone [facility] Case Management [address] [place] [address] Ángel Tyler RN 08/07/2024 11:45 AM CDT - 08/07/2024 2:25 PM CDT Surgery [facility] Operating Room [address] [place] [address] Jerry Tolentino MD COMPLEX ARTHROPLASTY TOTAL HIP - LINDA ROBOTIC ARM - DERIAN 08/07/2024 11:15 AM CDT Anesthesia Event [facility] Operating Room [address] [place] [address] Dean Hull MD Mallette, Allison Anne, NP 08/07/2024 9:52 AM CDT - 08/08/2024 10:24 AM CDT Hospital Encounter [facility] [address] [place] [address] Jerry Tolentino MD Primary osteoarthritis of left hip [M16.12] (Primary Dx) Discharge Disposition: Discharge to home or self care 07/30/2024 Telephone [facility] Orthopaedic Surgery [facility] Medical Office Building [address] [place] [address] Jerry Tolentino MD 07/25/2024 Orders Only [facility] Orthopaedic Surgery [address] [facility] 6th [place] [address] [place] [address] Jerry Tolentino MD 07/17/2024 Telephone [facility] Orthopaedic Surgery [address] [facility] 6th [place] [address] [place] [address] Ingrid Mims RN 07/08/2024 12:24 PM CDT - 07/08/2024 11:59 PM CDT Hospital Encounter [facility] Imaging [address] [place] [address] Left hip pain Discharge Disposition: Discharge to home or self care 07/08/2024 11:45 AM CDT Lab [facility] [address] [address]ARY Jalloh [address] Right hip pain; Primary osteoarthritis of right hip; Disorder of cartilage, unspecified 07/08/2024 11:30 AM CDT Pre-Admission Testing [facility] Pre-Anesthesia Testing [address] MARY [address]alloh [address] 06/14/2024 Orders Only [facility] Orthopaedic Surgery [address] [facility] 6th [place] [address] [place] [address] Jez Phillip MD Left hip pain (Primary [...] on file 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 Gender Identity Not on file Sexual Orientation [...] 08/08/2025 08/08/2024 Medical Devices Implanted Type Area Election Assistant Device Identifier Shelf Expiration Date Model / Serial / Lot Gui Right: Femur Screws Left: Foot Description:Plaate and screw s L hip [employer] Shell Acetabular Trident Ii Tritanium E Od52mm Hip 5 Screw Hole Cluster Sterile 702-04-52e - [id number] Implanted:Qty: 1 on 08/07/2024 at [facility] Left: Hip [employer] 03/27/2029 702-04-52E / / [id number] [employer] Liner Acetabular Hip Trident X3 40mm Polyethylene 0 Degree Size E 723-00-40e - [id number] Implanted:Qty: 1 on 08/07/2024 at [facility] Left: Hip [employer] 03/31/2029 723-00-40E / / [id number] [employer] Stem Femoral Hip Collared Insignia 38.5h386jv High Offset Size 6 9229-8909 - [id number] Implanted:Qty: 1 on 08/07/2024 at [facility] Left: Hip [employer] 06/07/2029 2934-1581 / / [id number] [employer] 40mm Hip [place] Taper Head Femoral [employer] Delta 6519-1-040 - [id number] Implanted:Qty: 1 on 08/07/2024 at [facility] Left: Hip [employer] 06/09/2029 6519-1-040 / / [id number] [employer] V40 Hip +4mm Offset [place] Taper Sleeve Adapter Titanium 6519-T-204 - [id number] Implanted:Qty: 1 on 08/07/2024 at [facility] Left: Hip [employer] 05/20/2029 6519-T-204 / / [id number] Explanted Type Area Election Assistant Device Identifier Shelf Expiration Date Model / Serial / Lot [employer] Component Navigation Orthopedic Knee Instrument 132 Degree Linda [id number] - [id number] Explanted:Qty: 1 on 08/07/2024 at [facility] Left: Hip [employer] 01/21/2029 [id number] / / [id number] Procedures Procedure Name Priority Date/Time Associated [...] of left hip Special Needs Linda Robot [place] AN PROCEDURE PLACEHOLDER Routine 08/07/2024 11:12 AM [...] LAB BLOOD ORDERABLES Final Result JACQUIE WCH [address] [facility] [place] [address] * (ABNORMAL) Hemoglobin and hematocrit (08/08/2024 4:32 AM CDT) Pathologist [facility] Hgb 9.5(L) 13.0 - 17.5 g/dL Hct 28.8(L) 38.9 - 50.3 % [facility] Blood 08/08/2024 4:32 AM CDT 08/08/2024 4:58 AM CDT us Chris Cole MD LAB BLOOD ORDERABLES Final Result JACQUIE [facility] [address] [facility] [place] [address] * (ABNORMAL) Basic metabolic panel (08/08/2024 4:32 AM CDT) Pathologist [facility] Sodium 131(L) 135 - 145 mmol/L Potassium, pl 4.6 3.3 - 4.9 mmol/L [facility] Chloride 98 97 - 110 mmol/L [facility] CO2 23 22 - 32 mmol/L [facility] Anion gap 10 2 - 15 mmol/L [facility] BUN 23 6 - 25 mg/dL [facility] Creatinine 1.22 0.80 - 1.30 mg/dL [facility] Glucose 130 70 - 199 mg/dL [facility] Comment: Interpretive Data Fasting glucose >/= [...] 2022. Calcium 8.8 8.5 - 10.3 mg/dL [facility] Blood 08/08/2024 4:32 AM CDT 08/08/2024 4:58 AM CDT us Chris Cole MD LAB BLOOD ORDERABLES Final Result JACQUIE BJWCH [address] [facility]. [place] [address] * XR Pelvis Ortho View (08/07/2024 1:34 [...] IMG XR PROCEDURES Fi nal Result * [place] AN PROCEDURE PLACEHOLDER (08/07/2024 11:12 AM CDT) Dean Ulrich MD - 08/07/2024 11:12 AM CDT Dean Hlul MD 08/07/2024 11:12 AM Spinal Block Patient [...] MD LAB BLOOD ORDERABLES Final Result [facility] [address] [facility]. [place] [address] * (ABNORMAL) Differential, auto (07/08/2024 12:19 PM [...] MD LAB BLOOD ORDERABLES Final Result [facility] [address] [facility]. [place] [address] * (ABNORMAL) CBC with auto differential (07/08/2024 12:19 PM CDT) WBC 10.7(H) 3.8 - 9.9 K/cumm Hgb 13.7 13.0 - 17.5 g/dL JACQUIE [facility] Hct 41.2 38.9 - 50.3 % JACQUIE [facility] Plt 303 150 - 400 K/cumm [facility]IE [facility] MPV 10.7 9.1 - 12.3 fL JACQUIE [facility] RBC 4.62 4.30 - 5.80 M/cumm JACQUIE [facility] MCV 89.2 81.3 - 96.4 fL [facility] MCH 29.7 27.1 - 33.3 pg [facility] MCHC 33.3 32.3 - 35.7 g/dL [facility] BJW RDW CV 14.6 11.1 - 14.9 % [facility] BJW RDW SD 47.1 35.7 - 48.1 fL [facility] NRBC abs 0.00 0.00 - 0.01 K/cumm [facility] Blood 07/08/2024 12:1 9 PM CDT 07/08/2024 12:28 PM CDT Jerry Tolentino MD LAB BLOOD ORDERABLES Final Result Performing Organization Address [facility] Co de Phone Number JACQUIE LANIER [address] [facility] [place] [address] * Vitamin D 25 hydroxy (07/08/2024 12:19 PM CDT) Pathologist [facility] Vitamin D 25-OH 30 30 - 80 ng/mL Blood 07/08/2024 12:1 9 PM CDT 07/08/2024 12:28 PM CDT Jerry Tolentino MD LAB BLOOD ORDERABLES Final Result Performing Organization Address [facility] de Phone Number [facility] MINCH [address] [facility] [place] [address] * Comprehensive metabolic panel (07/08/2024 12:19 PM CDT) Pathologist [facility] Sodium 138 135 - 145 mmol/L Potassium, pl 4.3 3.3 - 4.9 mmol/L [facility] Chloride 103 97 - 110 mmol/L [facility] CO2 25 22 - 32 mmol/L [facility] Anion gap 10 2 - 15 mmol/L [facility] BUN 16 6 - 25 mg/dL [facility] Creatinine 0.97 0.80 - 1.30 mg/dL [facility] Glucose 70 70 - 199 mg/dL [...] Final Result Performing Organization Address City/State/ZIP Co va Phone Number JACQUIE MINCH [address] [facility] [place] [address] from Last 3 Months Insurance [facility] MEDICARE ADVANTAGE [facility] MEDIC[facility] Address: [address] [address] [place] [address] [facility] MEDICARE ADVANTAGE [facility] MEDIC[facility] Address: [address] [address] [place] [address] Advance Directives For more information, please contact: [phone] * Full Code (Latest Code Status on File) Date Activated Date Inactivated Comments 08/07/2024 2:22 PM 08/08/2024 2:24 PM Care Teams City Weighmaster Relationship Specialty Start Date End Date Maria Del Carmen Rico MD [address] [place] [address] PCP - General Family Medicine 03/18/24
--- OUTSIDE RECORDS SUMMARY | 2024-08-15 04:13 | XMS_ITS | Clinical Summary ---
Author Organization [facility] Address [facility] [place] [address] Care Team Providers Care Medical Office Coordinator Name Role Phone Dandy Hoff MD Unavailable Unavail able Shin Gudino MD Primary Care Provider [phone] Suzanna Gregorio MD Unavailable [phone] Allergies No known active allergies Medications ciprofloxacin [...] age to complete this topic Care Teams Medical Office Coordinator Relationship Specialty Start Date End Date Shin Gudino MD [address] [place] [address] PCP - General FAMILY PRACTICE 11/18/16 Dandy Hoff MD CARDIOVASCULAR DISEASE 11/18/16 Suzanna [place] [address] [place] [address] SURGERY 11/18/16
--- OUTSIDE RECORDS SUMMARY | 2024-08-15 04:13 | XMS_ITS | Referral Summary ---
Author Organization [facility] Address [address] [place] [address] Care Team Providers Care Bond Trader Name Role Phone Maria Del Carmen Rico MD Primary Care Provider Encounters Date Type Department Care Team Description 08/13/2024 Telephone [facility] Case Management [id number] [place] [address] Ángel Tyler RN 08/07/2024 9:52 AM CDT - 08/08/2024 10:24 AM CDT Hospital Encounter [facility] [id number] [place] [address] Jerry Tolentino MD Primary osteoarthritis of left hip [M16.12] (Primary Dx) Discharge Disposition: Discharge to home or self care 08/07/2024 11:45 AM CDT - 08/07/2024 2:25 PM CDT Surgery [facility] Operating Room [address] [address] Jerry Tolentino MD COMPLEX ARTHROPLASTY TOTAL HIP - LINDA ROBOTIC ARM - DERIAN 08/07/2024 11:15 AM CDT Anesthesia Event [facility] Operating Room [address] [address] [address] Dean Hull MD Mallette, Allison Anne, NP 07/30/2024 Telephone [facility] Orthopaedic Surgery [address] [place] [address] Medical Office Building [address] [place] [phone] Jerry Tolentino MD 07/25/2024 Orders Only [facility] Orth[facility] Surgery [address] [facility] 6th [place] [address] [place] [address] Jerry Tolentino MD 07/17/2024 Telephone [facility] Orth[facility] Surgery [address] [facility] 6th [place] [address] [place] [address] Ingrid Mims RN 07/08/2024 11:45 AM CDT Lab [facility] [address] [address] Right hip pain; Primary osteoarthritis of right hip; Disorder of cartilage, unspecified 07/08/2024 11:30 AM CDT Pre-Admission Testing [facility] Pre-Anesthesia Testing [id number] Cole [address] 07/08/2024 12:24 PM CDT - 07/08/2024 11:59 PM CDT Hospital Encounter [facility] Imaging [address]53[address] [address] Left hip pain Discharge Disposition: Discharge to home or self care 06/14/2024 Orders Only [facility] Orthopaedic Surgery [address] 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 Gender Identity Not on file Sexual [...] on file Medical Devices Implanted Type Area Pai Gow Dealer Device Identifier Shelf Expiration Date Model / Serial / Lot Gui Right: Femur Screws Left: Foot Description:Plaate and screw s L hip [employer] Shell Acetabular Trident Ii Tritanium E Od52mm Hip 5 Screw Hole Cluster Sterile 702-04-52e - [id number] Implanted:Qty: 1 on 08/07/2024 at [facility] Left: Hip [employer] 03/27/2029 702-04-52E / / [id number] [employer] Liner Acetabular Hip Trident X3 40mm Polyethylene 0 Degree Size E 723-00-40e - [id number] Implanted:Qty: 1 on 08/07/2024 at [facility] Left: Hip [employer] 03/31/2029 723-00-40E / / [id number] [employer] Stem Femoral Hip Collared Insignia 38.1x275pd High Offset Size 6 7137-3250 - [id number] Implanted:Qty: 1 on 08/07/2024 at [facility] Left: Hip [employer] 06/07/2029 6527-0917 / / [id number] [employer] 40mm Hip [place] Taper Head Femoral Biolox Delta 6519-1-040 - [id number] Implanted:Qty: 1 on 08/07/2024 at [facility] Left: Hip [employer] 06/09/2029 6519-1-040 / / [id number] [employer] V40 Hip +4mm Offset [place] Taper Sleeve Adapter Titanium 6519-T-204 - [id number] Implanted:Qty: 1 on 08/07/2024 at [facility] Left: Hip [employer] 05/20/2029 6519-T-204 / / [id number] Explanted Type Area Pai Gow Dealer Device Identifier Shelf Expiration Date Model / Serial / Lot [employer] Component Navigation Orthopedic Knee Instrument 132 Degree Linda [id number] - [id number] Explanted:Qty: 1 on 08/07/2024 at [facility] Left: Hip [employer] 01/21/2029 061404 / / [id number] Procedures Procedure Name Priority Date/Time Associated [...] of left hip Special Needs Linda Robot ID AN PROCEDURE PLACEHOLDER Routine 08/07/2024 11:12 AM [...] LAB BLOOD ORDERABLES Final Result JACQUIE [facility] [address] [place] [place] [address] * (ABNORMAL) Hemoglobin and hematocrit (08/08/2024 4:32 AM CDT) [facility] Hgb 9.5(L) 13.0 - 17.5 g/dL Hct 28.8(L) 38.9 - 50.3 % JACQUIE ALVAREZ Blood 08/08/2024 4:32 AM CDT 08/08/2024 4:58 AM CDT Chris Cole MD LAB BLOOD ORDERABLES Final Result JACQUIE BJW[facility] [address] [employer] [facility] [employer] [place], [place] [id number] * (ABNORMAL) Basic metabolic panel (08/08/2024 4:32 AM CDT) Sodium 131(L) 135 - 145 mmol/L Potassium, pl 4.6 3.3 - 4.9 mmol/L [facility] Chloride 98 97 - 110 mmol/L [facility] CO2 23 22 - 32 mmol/L [facility] Anion gap 10 2 - 15 mmol/L [facility] BUN 23 6 - 25 mg/dL [facility] Creatinine 1.22 0.80 - 1.30 mg/dL [facility] Glucose 130 70 - 199 mg/dL [facility] Comment: Interpretive Data Fasting glucose >/= [...] 2022. Calcium 8.8 8.5 - 10.3 mg/dL [facility] Blood 08/08/2024 4:32 AM CDT 08/08/2024 4:58 AM CDT Chris Cole MD LAB BLOOD ORDERABLES Final Result Performing Organization Address City/State/[facility] Co mt Phone Number [facility] [address] [facility] [place] [address] * XR Pelvis Ortho View (08/07/2024 1:34 [...] IMG XR PROCEDURES Fi nal Result * ID AN PROCEDURE PLACEHOLDER (08/07/2024 11:12 AM CDT) [...] MD LAB BLOOD ORDERABLES Final Result [facility] [address] [facility]. [place] [address] * (ABNORMAL) Differential, auto (07/08/2024 12:19 PM [...] [facility] Neutrophil pct 68.4 % [facility] Comment: Interpretive Data Percent cell count [...] on 2017. Eosinophil pct 3.1 % [facility] Comment: Interpretive Data Percent cell count [...] BLOOD ORDERABLES Final Result Performing Organization Address [facility] Co de Phone Number JACQUIE ALVAREZ [address] [place] [address] * (ABNORMAL) CBC with auto differential (07/08/2024 12:19 PM CDT) WBC 10.7(H) 3.8 - 9.9 K/cumm Hgb 13.7 13.0 - 17.5 g/dL [facility] Hct 41.2 38.9 - 50.3 % [facility] Plt 303 150 - 400 K/cumm [facility] MPV 10.7 9.1 - 12.3 fL [facility] RBC 4.62 4.30 - 5.80 M/cumm [facility] MCV 89.2 81.3 - 96.4 fL [facility] MCH 29.7 27.1 - 33.3 pg [facility] MCHC 33.3 32.3 - 35.7 g/dL [facility] RDW CV 14.6 11.1 - 14.9 % [facility] RDW SD 47.1 35.7 - 48.1 fL [facility] NRBC abs 0.00 0.00 - 0.01 K/cumm [facility] Blood 07/08/2024 12:1 9 PM CDT 07/08/2024 12:28 PM CDT Jerry Tolentino MD LAB BLOOD ORDERABLES Final Result Performing Organization Address [facility]/ZIP Co de Phone Number JACQUIE ALVAREZ [address] [place] [address] * Vitamin D 25 hydroxy (07/08/2024 12:19 PM CDT) Vitamin D 25-OH 30 30 - 80 ng/mL Blood 07/08/2024 12:1 9 PM CDT 07/08/2024 12:28 PM CDT Jerry Tolentino MD LAB BLOOD ORDERABLES Final Result [facility] [address] [facility]. [place] [address] * Comprehensive metabolic panel (07/08/2024 12:19 PM CDT) Pathologist [facility] Sodium 138 135 - 145 mmol/L Potassium, pl 4.3 3.3 - 4.9 mmol/L [facility] Chloride 103 97 - 110 mmol/L [facility] CO2 25 22 - 32 mmol/L [facility] Anion gap 10 2 - 15 mmol/L [facility] BUN 16 6 - 25 mg/dL [facility] Creatinine 0.97 0.80 - 1.30 mg/dL [facility] Glucose 70 70 - 199 mg/dL [facility] Comment: Interpretive Data Fasting glucose [...] LAB BLOOD ORDERABLES Final Result JACQUIE LANIERCH [address] [facility]. [place] [address] from Last 3 Months Insurance [employer] Member Subscriber Plan / Payer (Ef fective 2023-Present) Name:Amari Lorenzana Sr Relation to Subscriber:Self Name:Amari Lorenzana Sr Payer ID:[id number] (NAIC) Type:[employer] Address: [place] [id number] [place] [id number] [employer] Advance Directives For more information, please contact: [phone] * Full Code (Latest Code Status on File) Date Activated Date Inactivated Comments 08/07/2024 2:22 PM 08/08/2024 2:24 PM Care Teams Bond Trader Relationship Specialty Start Date End Date Maria Del Carmen Rico MD [address] [place] [id number] PCP - General Family Medicine 03/18/24
[2024-08-15 04:15] VITALS: BP 164/67; PULSE 77; RESP 18; TEMP 36.4; O2SAT 98
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
--- OUTSIDE RECORDS SUMMARY | 2024-08-15 04:38 | XMS_ITS | Clinical Summary ---
Author Organization [facility] Address [address] [facility] [place] [address] Care Team Providers Care Molecular Biology Director Name Role Phone Maria Del Carmen Rico [...] Type Department Care Team Description 08/13/2024 Telephone [facility] Case Management [address] [place] [address] Ángel Tyler RN 08/07/2024 11:45 AM CDT - 08/07/2024 2:25 PM CDT Surgery [facility] Operating Room [address] [place] [address] Jerry Tolentino MD COMPLEX ARTHROPLASTY TOTAL HIP - LINDA ROBOTIC ARM - DERIAN 08/07/2024 11:15 AM CDT Anesthesia Event [facility] Operating Room [address] [place] [address] Dean Hull MD Mallette, Allison Anne, NP 08/07/2024 9:52 AM CDT - 08/08/2024 10:24 AM CDT Hospital Encounter [facility] [address] [place] [address] Jerry Tolentino MD Primary osteoarthritis of left hip [M16.12] (Primary Dx) Discharge Disposition: Discharge to home or self care 07/30/2024 Telephone [facility] Orthopaedic Surgery [facility] Medical Office Building [address] [place] [address] Jerry Tolentino MD 07/25/2024 Orders Only [facility] Orthopaedic Surgery [address] [facility] Advanced Medicine 6th [place] [address] [place] [address] Jerry Tolentino MD 07/17/2024 Telephone [facility] Orthopaedic Surgery [address] [facility] 6th [place] [address] [place] [address] Ingrid Mims RN 07/08/2024 12:24 PM CDT - 07/08/2024 11:59 PM CDT Hospital Encounter [facility] Imaging [address] [place] [address] Left hip pain Discharge Disposition: Discharge to home or self care 07/08/2024 11:45 AM CDT Lab [facility] [address] [address] Right hip pain; Primary osteoarthritis of right hip; Disorder of cartilage, unspecified 07/08/2024 11:30 AM CDT Pre-Admission Testing [facility] Pre-Anesthesia Testing [address] [address] [address] 06/14/2024 Orders Only [facility] Orthopaedic Surgery [address] [facility] 6th [place] [address] [place] [address] Jez Phillip MD Left hip pain (Primary [...] on file 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 Gender Identity Not on file Sexual Orientation [...] 08/08/2025 08/08/2024 Medical Devices Implanted Type Area National Accounts Recruiter Device Identifier Shelf Expiration Date Model / Serial / Lot Gui Right: Femur Screws Left: Foot Description:Plaate and screw s L hip [employer] Shell Acetabular Trident Ii Tritanium E Od52mm Hip 5 Screw Hole Cluster Sterile 702-04-52e - [id number] Implanted:Qty: 1 on 08/07/2024 at [facility] Left: Hip [employer] 03/27/2029 702-04-52E / / [id number] [employer] Liner Acetabular Hip Trident X3 40mm Polyethylene 0 Degree Size E 723-00-40e - [id number] Implanted:Qty: 1 on 08/07/2024 at [facility] Left: Hip [employer] 03/31/2029 723-00-40E / / [id number] [employer] Stem Femoral Hip Collared Insignia 38.9a696lc High Offset Size 6 5659-3439 - [id number] Implanted:Qty: 1 on 08/07/2024 at [facility] Left: Hip [employer] 06/07/2029 1426-0362 / / [id number] [employer] 40mm Hip [place] Taper Head Femoral Biolox Delta 6519-1-040 - [id number] Implanted:Qty: 1 on 08/07/2024 at [facility] Left: Hip [employer] 06/09/2029 6519-1-040 / / [id number] [employer] V40 Hip +4mm Offset [place] Taper Sleeve Adapter Titanium 6519-T-204 - [id number] Implanted:Qty: 1 on 08/07/2024 at [facility] Left: Hip [employer] 05/20/2029 6519-T-204 / / [id number] Explanted Type Area National Accounts Recruiter Device Identifier Shelf Expiration Date Model / Serial / Lot [employer] Component Navigation Orthopedic Knee Instrument 132 Degree Linda 110565 - [id number] Explanted:Qty: 1 on 08/07/2024 at [facility] Left: Hip [employer] 01/21/2029 [id number] / / [id number] Procedures Procedure Name Priority Date/Time Associated [...] of left hip Special Needs Linda Robot GA AN PROCEDURE PLACEHOLDER Routine 08/07/2024 11:12 AM [...] LAB BLOOD ORDERABLES Final Result JACQUIE [facility] [address] [facility] [place] [address] * (ABNORMAL) Hemoglobin and hematocrit (08/08/2024 4:32 AM CDT) Pathologist [facility] Hgb 9.5(L) 13.0 - 17.5 g/dL Hct 28.8(L) 38.9 - 50.3 % [facility] Blood 08/08/2024 4:32 AM CDT 08/08/2024 4:58 AM CDT us Chris Cole MD LAB BLOOD ORDERABLES Final Result JACQUIE [facility] [address] [facility] [place] [address] * (ABNORMAL) Basic metabolic panel (08/08/2024 4:32 AM CDT) Pathologist [facility] Sodium 131(L) 135 - 145 mmol/L Potassium, pl 4.6 3.3 - 4.9 mmol/L [facility] Chloride 98 97 - 110 mmol/L [facility] CO2 23 22 - 32 mmol/L [facility] Anion gap 10 2 - 15 mmol/L [facility] BUN 23 6 - 25 mg/dL [facility] Creatinine 1.22 0.80 - 1.30 mg/dL [facility] Glucose 130 70 - 199 mg/dL [facility] Comment: Interpretive Data Fasting glucose >/= 126 [...] 2022. Calcium 8.8 8.5 - 10.3 mg/dL [facility] Blood 08/08/2024 4:32 AM CDT 08/08/2024 4:58 AM CDT us Chris Cole MD LAB BLOOD ORDERABLES Final Result JACQUIE [facility]JW[facility] [address] [facility]. [place] [address] * XR Pelvis Ortho View (08/07/2024 1:34 [...] IMG XR PROCEDURES Fi nal Result * GA AN PROCEDURE PLACEHOLDER (08/07/2024 11:12 AM CDT) [...] Tolentino MD LAB BLOOD ORDERABLES Final Result [facility] [address] [facility]. [place] [address] * (ABNORMAL) Differential, auto (07/08/2024 12:19 PM [...] Tolentino MD LAB BLOOD ORDERABLES Final Result [facility] [address] [facility]. [place] [address] * (ABNORMAL) CBC with auto differential (07/08/2024 12:19 PM CDT) WBC 10.7(H) 3.8 - 9.9 K/cumm Hgb 13.7 13.0 - 17.5 g/dL [facility] Hct 41.2 38.9 - 50.3 % [facility] Plt 303 150 - 400 K/cumm [facility] MPV 10.7 9.1 - 12.3 fL JACQUIE [facility] RBC 4.62 4.30 - 5.80 M/cumm [facility] MCV 89.2 81.3 - 96.4 fL [facility] MCH 29.7 27.1 - 33.3 pg [facility] MCHC 33.3 32.3 - 35.7 g/dL [facility] RDW CV 14.6 11.1 - 14.9 % [facility] RDW SD 47.1 35.7 - 48.1 fL [facility] NR[facility] abs 0.00 0.00 - 0.01 K/cumm [facility] Blood 07/08/2024 12:1 9 PM CDT 07/08/2024 12:28 PM CDT Jerry Tolentino MD LAB BLOOD ORDERABLES Final Result Performing Organization Address [facility] Co de Phone Number JACQUIE LANIER [address] [facility] [place] [address] * Vitamin D 25 hydroxy (07/08/2024 12:19 PM CDT) Pathologist [facility] Vitamin D 25-OH 30 30 - 80 ng/mL Blood 07/08/2024 12:1 9 PM CDT 07/08/2024 12:28 PM CDT Jerry Tolentino MD LAB BLOOD ORDERABLES Final Result Performing Organization Address [facility] de Phone Number [facility] [address] [facility] [place] [address] * Comprehensive metabolic panel (07/08/2024 12:19 PM CDT) Pathologist [facility] Sodium 138 135 - 145 mmol/L Potassium, pl 4.3 3.3 - 4.9 mmol/L [facility] Chloride 103 97 - 110 mmol/L [facility] CO2 25 22 - 32 mmol/L [facility] Anion gap 10 2 - 15 mmol/L [facility] BUN 16 6 - 25 mg/dL [facility] Creatinine 0.97 0.80 - 1.30 mg/dL [facility] Glucose 70 70 - 199 mg/dL CERNER [...] Final Result Performing Organization Address City/State/ZIP Co ms Phone Number JACQUIE MINCH [address] [facility] [place] [address] from Last 3 Months Insurance [facility] [employer] [facility] [employer] Advance Directives For more information, please contact: [phone] * Full Code (Latest Code Status on File) Date Activated Date Inactivated Comments 08/07/2024 2:22 PM 08/08/2024 2:24 PM Care Teams Molecular Biology Director Relationship Specialty Start Date End Date Maria Del Carmen Rico MD [address] [place] [address] PCP - General Family Medicine 03/18/24
--- OUTSIDE RECORDS SUMMARY | 2024-08-15 04:38 | XMS_ITS | Clinical Summary ---
Author Organization [facility] Address [facility] [place] [address] Care Team Providers Care Benzene Worker Name Role Phone Dandy Hoff MD Unavailable Unavail able Shin Gudino MD Primary Care Provider [phone] Suzanna Gregorio MD Unavailable [phone] Allergies No known active allergies Medications ciprofloxacin [...] age to complete this topic Care Teams Benzene Worker Relationship Specialty Start Date End Date Shin Gudino MD [address] [place] [address] PCP - General FAMILY PRACTICE 11/18/16 Dandy Hoff MD CARDIOVASCULAR DISEASE 11/18/16 [place] [address] [place] [address] SURGERY 11/18/16
--- OUTSIDE RECORDS SUMMARY | 2024-08-15 04:38 | XMS_ITS | Referral Summary ---
Author Organization [facility] Address [address] [place] [address] Care Team Providers Care Rehabilitation Nurse Name Role Phone Maria Del Carmen Rico MD Primary Care Provider Encounters Date Type Department Care Team Description 08/13/[address] [facility] Case Management [address] [place] [address] Ángel Tyler RN 08/07/2024 9:52 AM CDT - 08/08/2024 10:24 AM CDT Hospital Encounter [facility] [address] [place] [address] Jerry Tolentino MD Primary osteoarthritis of left hip [M16.12] (Primary Dx) Discharge Disposition: Discharge to home or self care 08/07/2024 11:45 AM CDT - 08/07/2024 2:25 PM CDT Surgery [facility] Operating Room [address] [address] Jerry Tolentino MD COMPLEX ARTHROPLASTY TOTAL HIP - LINDA ROBOTIC ARM - DERIAN 08/07/2024 11:15 AM CDT Anesthesia Event [facility] Operating Room [address] [address] [address] Dean Hull MD Mallette, Allison Anne, NP 07/30/2024 Telephone [facility] Orthopaedic Surgery [address] [place] [address] Medical Office Building [address] [place] [address] Jerry Tolentino MD 07/25/2024 Orders Only [facility] Orthopaedic Surgery [address] [facility] 6th [place] [address] Jerry Tolentino MD 07/17/2024 Telephone [facility] Orthopaedic Surgery [address] [facility] 6th [place] [address] Ingrid Mims RN 07/08/2024 11:45 AM CDT Lab [facility] [address] [address] [address] Right hip pain; Primary osteoarthritis of right hip; Disorder of cartilage, unspecified 07/08/2024 11:30 AM CDT Pre-Admission Testing [facility] Pre-Anesthesia Testing [address]MARY Cole [address] 07/08/2024 12:24 PM CDT - 07/08/2024 11:59 PM CDT Hospital Encounter 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 Gender Identity Not on file Sexual Orientation [...] on file Medical Devices Implanted Type Area Keyliner Device Identifier Shelf Expiration Date Model / Serial / Lot Gui Right: Femur Screws Left: Foot Description:Plaate and screw s L hip [employer] Shell Acetabular Trident Ii Tritanium E Od52mm Hip 5 Screw Hole Cluster Sterile 702-04-52e - [id number] Implanted:Qty: 1 on 08/07/2024 at [facility] Left: Hip [employer] 03/27/2029 702-04-52E / / [id number] [employer] Liner Acetabular Hip Trident X3 40mm Polyethylene 0 Degree Size E 723-00-40e - [id number] Implanted:Qty: 1 on 08/07/2024 at [facility] Left: Hip [employer] 03/31/2029 723-00-40E / / [id number] [employer] Stem Femoral Hip Collared Insignia 38.3c066mu High Offset Size 6 9825-5097 - [id number] Implanted:Qty: 1 on 08/07/2024 at [facility] Left: Hip [employer] 06/07/2029 6958-7547 / / [id number] [employer] 40mm Hip [place] Taper Head Femoral Biolox Delta 6519-1-040 - [id number] Implanted:Qty: 1 on 08/07/2024 at [facility] Left: Hip [employer] 06/09/2029 6519-1-040 / / [id number] [employer] V40 Hip +4mm Offset [place] Taper Sleeve Adapter Titanium 6519-T-204 - [id number] Implanted:Qty: 1 on 08/07/2024 at [facility] Left: Hip [employer] 05/20/2029 6519-T-204 / / [id number] Explanted Type Area Keyliner Device Identifier Shelf Expiration Date Model / Serial / Lot [employer] Component Navigation Orthopedic Knee Instrument 132 Degree Linda 984957 - [id number] Explanted:Qty: 1 on 08/07/2024 at [facility] Left: Hip [employer] 01/21/2029 517300 / / [id number] Procedures Procedure Name Priority Date/Time Associated [...] of left hip Special Needs Linda Robot ND AN PROCEDURE PLACEHOLDER Routine 08/07/2024 11:12 AM [...] LAB BLOOD ORDERABLES Final Result JACQUIE MINWCH [address] [employer] [address] * (ABNORMAL) Hemoglobin and hematocrit (08/08/2024 4:32 AM CDT) [facility] Hgb 9.5(L) 13.0 - 17.5 g/dL Hct 28.8(L) 38.9 - 50.3 % JACQUIE ALVARE[facility] Blood 08/08/2024 4:32 AM CDT 08/08/2024 4:58 AM CDT Chris Cole MD LAB BLOOD ORDERABLES Final Result JACQUIE BJW[facility] [address] [employer]. [facility] [employer] [place], [place] [id number] * (ABNORMAL) Basic metabolic panel (08/08/2024 4:32 AM CDT) Sodium 131(L) 135 - 145 mmol/L Potassium, pl 4.6 3.3 - 4.9 mmol/L [facility] Chloride 98 97 - 110 mmol/L [facility] CO2 23 22 - 32 mmol/L [facility] Anion gap 10 2 - 15 mmol/L [facility] BUN 23 6 - 25 mg/dL [facility] Creatinine 1.22 0.80 - 1.30 mg/dL [facility] Glucose 130 70 - 199 mg/dL [facility] Comment: Interpretive Data Fasting glucose >/= [...] 2022. Calcium 8.8 8.5 - 10.3 mg/dL [facility] Blood 08/08/2024 4:32 AM CDT 08/08/2024 4:58 AM CDT Chris Cole MD LAB BLOOD ORDERABLES Final Result Performing Organization Address City/State/[facility] Co ri Phone Number [facility]IE [facility] [address] [facility] Department [place] [address] * XR Pelvis Ortho View (08/07/2024 1:34 [...] IMG XR PROCEDURES Fi nal Result * ND AN PROCEDURE PLACEHOLDER (08/07/2024 11:12 AM CDT) [...] MD LAB BLOOD ORDERABLES Final Result [facility] [address] [facility]. [place] [address] * (ABNORMAL) Differential, auto (07/08/2024 12:19 PM [...] [facility]ER [facility] Neutrophil pct 68.4 % [facility]IE [facility] Comment: Interpretive Data Percent cell [...] on 2017. Eosinophil pct 3.1 % [facility] Comment: Interpretive Data Percent cell [...] BLOOD ORDERABLES Final Result Performing Organization Address [facility] Co de Phone Number JACQUIE ALVAREZ [address] [employer] [place] [address] * (ABNORMAL) CBC with auto differential (07/08/2024 12:19 PM CDT) WBC 10.7(H) 3.8 - 9.9 K/cumm Hgb 13.7 13.0 - 17.5 g/dL [facility] Hct 41.2 38.9 - 50.3 % [facility] Plt 303 150 - 400 K/cumm [facility] MPV 10.7 9.1 - 12.3 fL [facility] RBC 4.62 4.30 - 5.80 M/cumm [facility] MCV 89.2 81.3 - 96.4 fL [facility] MCH 29.7 27.1 - 33.3 pg [facility] MCHC 33.3 32.3 - 35.7 g/dL [facility] RDW CV 14.6 11.1 - 14.9 % [facility] RDW SD 47.1 35.7 - 48.1 fL [facility] NRBC abs 0.00 0.00 - 0.01 K/cumm [facility] Blood 07/08/2024 12:1 9 PM CDT 07/08/2024 12:28 PM CDT Jerry Tolentino MD LAB BLOOD ORDERABLES Final Result Performing Organization Address [facility]/ZIP Co de Phone Number JACQUIE ALVAREZ [address] [employer] [address] * Vitamin D 25 hydroxy (07/08/2024 12:19 PM CDT) Vitamin D 25-OH 30 30 - 80 ng/mL Blood 07/08/2024 12:1 9 PM CDT 07/08/2024 12:28 PM CDT Jerry Tolentino MD LAB BLOOD ORDERABLES Final Result [facility] [address] [facility]. [place] [address] * Comprehensive metabolic panel (07/08/2024 12:19 PM CDT) Pathologist [facility] Sodium 138 135 - 145 mmol/L Potassium, pl 4.3 3.3 - 4.9 mmol/L [facility] Chloride 103 97 - 110 mmol/L [facility] CO2 25 22 - 32 mmol/L [facility] Anion gap 10 2 - 15 mmol/L [facility] BUN 16 6 - 25 mg/dL [facility] Creatinine 0.97 0.80 - 1.30 mg/dL [facility] Glucose 70 70 - 199 mg/dL [facility] Comment: Interpretive Data Fasting glucose >/= [...] LAB BLOOD ORDERABLES Final Result JACQUIE LANIERCH [address] [facility]. [place] [address] from Last 3 Months Insurance [facility] MEDICARE ADVANTAGE [facility]IC[facility] Address: [place] [id number] [place] [phone] [facility] MEDICARE ADVANTAGE [facility] Address: [address] [address] [place] [address] Advance Directives For more information, please contact: [phone] * Full Code (Latest Code Status on File) Date Activated Date Inactivated Comments 08/07/2024 2:22 PM 08/08/2024 2:24 PM Care Teams Rehabilitation Nurse Relationship Specialty Start Date End Date Maria Del Carmen Rico MD [address] [place] [address] PCP - General Family Medicine 03/18/24
--- NOTE | 2024-08-15 04:43 | PC.NURSE ---
xray at bedside. patient given pillow for between his knees per request.
[2024-08-15] MEDS: methylPREDNISolone SOD SUCC 40 MG VIAL IV PUSH (04:51)
[2024-08-15 04:54] LABS: Basophils Absolute Auto 0.04 K/mm3 (0.00-0.10); Basophils Percent Auto 0.3 % (0.0-1.0); Eosinophils Absolute Auto 0.08 K/mm3 (0.02-0.50); Eosinophils Percent Auto 0.6 % (1.0-6.0); Hematocrit 29.2 % (37.0-46.0); Hemoglobin 9.4 g/dL (12.4-15.3); Immature Granulocyte Absolute 0.09 K/mm3 (0.00-0.00); Immature Granulocyte Percent A 0.6 % (0.0-0.0); Lymphocytes Absolute Auto 2.14 K/mm3 (1.10-4.50); Lymphocytes Percent Auto 14.7 % (18.0-42.0); Mean Corpuscular HGB Conc 32.2 g/dL (32-36); Mean Corpuscular Hemoglobin 29.2 pg (27.0-31.0); Mean Corpuscular Volume 90.7 fL (78.0-102.0); Mean Platelet Volume 9.3 fl (8.7-11.0); Monocytes Absolute Auto 1.29 K/mm3 (0.10-0.90); Monocytes Percent Auto 8.9 % (2.0-11.0); Neutrophils Absolute Auto 10.87 K/mm3 (1.70-7.20); Neutrophils Percent Auto 74.9 % (50.0-70.0); Platelet Count Result 314 K/mm3 (150-420); Red Blood Count 3.22 M/mm3 (4.70-6.10); Red Cell Distribution Width 14.6 % (11.6-14.4); White Blood Count 14.5 K/mm3 (4.8-10.8)
[2024-08-15] MEDS: COLCHICINE 0.6 MG TABLET 1.2 MG PO (04:58)
[2024-08-15 05:10] LABS: Alanine Aminotransferase 27 U/L (16-63); Alkaline Phosphatase 118 U/L (46-116); Anion Gap 8 mmol/L (4-12); Aspartate Amino Transferase 19 U/L (15-37); Bilirubin,Total 1.5 mg/dL (0.00-1.00); Blood Urea Nitrogen 15 mg/dL (7-18); Calcium 9.2 mg/dL (8.5-10.1); Carbon Dioxide 28 mmol/L (21-32); Chloride 98 mmol/L (98-108); Estimated CRCL calculation 51 ml/min; Estimated Glomerular Filt Rate > 60; Glucose 93 mg/dL (70-99); Osmolality Calculated 278 mOsm/kg (285-295); Potassium 3.9 mmol/L (3.5-5.1); Sodium 134 mmol/L (136-145); Total Protein 7.1 g/dL (6.4-8.2); Uric Acid 3.5 mg/dL (3.5-7.2)
[2024-08-15 05:59] VITALS: BP 127/50; PULSE 79; RESP 20; TEMP 36.5; O2SAT 93
== END 2024-08-15 06:03 | disposition home or self-care (01) ==
PROVIDERS: Emergency Provider Internal Medicine Critical Care Medicine; PCP Physician Assistant
DX: M10.9 Gout, unspecified (principal); E78.5 Hyperlipidemia, unspecified; I11.0 Hypertensive heart disease with heart failure; I50.9 Heart failure, unspecified; Z79.891 Long term (current) use of opiate analgesic; Z79.1 Long term (current) use of non-steroidal anti-inflammatories (NSAID)
CPT/HCPCS: 36415; 73630; 80053; 84550; 85025; 96372; 99283; A9270; J2919

== ENCOUNTER 2024-12-19 18:30 | Emergency (ER) | payer MEDICARE, SELFPAY ==
[2024-12-19 18:30] VITALS: BP 156/95; PULSE 64; RESP 20; TEMP 36.9; O2SAT 97
--- NOTE | 2024-12-19 18:41 | ED.EXTPRO ---
HPI - Extremity Problem General Chief complaint: Extremity Problem,Nontraumatic Stated complaint: Gout Time Seen by Provider: 12/19/24 18:40 Source: patient and family Mode of arrival: ambulatory Limitations: no limitations History of Present Illness HPI Narrative: this is a 69-year-old male with history of gout presents with some warm tender right knee was started on colchicine has been on allopurinol, colchicine is not giving him much relief. There is no fever chills no shortness of breath no nausea vomiting no abdominal pain. MD Complaint: extremity pain Onset (ago): day(s) Pain Consistency: constant Location: right and knee Severity scale (1-10): 8 Quality: aching Related Data Home Medications ?Medication ?Instructions ?Recorded ?Confirmed ?Last Taken ?Type clobetasol 0.05 % topical cream topical 06/04/24 11/28/24 Unknown History meloxicam 15 mg tablet 15 mg PO DAILY 06/04/24 11/28/24 Unknown History metoprolol tartrate 75 mg tablet 75 mg PO DAILY 06/04/24 11/28/24 Unknown History multivitamin 1 tablet PO DAILY 06/04/24 11/28/24 Unknown History mv-min-vit C 1,000 mg-elderberry ea PO 06/04/24 11/28/24 Unknown History 50 mg-herb 35.5mg effervescent tablet (Airborne Elderberry) red yeast rice 600 mg capsule 600 mg PO DAILY 06/04/24 11/28/24 Unknown History atorvastatin 80 mg tablet 80 mg PO DAILY 11/28/24 11/28/24 Unknown History Allergies Allergy/AdvReac Type Severity Reaction Status Date / Time No Known Allergies Allergy Verified 08/15/24 04:30 Review of Systems Review of Systems: All systems reviewed & are unremarkable except as noted in HPI and below PMFSH Past Medical History Medical History (Updated 12/19/24 @ 18:44 by Jose Inman MD) Vitamin D deficiency Hypertension Hyperlipidemia Genital warts Erectile dysfunction CHF (congestive heart failure) Aortic valve insufficiency Surgical History Surgical History History of meniscectomy of left knee Repair 2002 Family History Family History Mother Family history of type 2 diabetes mellitus Father Hypertension Brother Family history of coronary artery disease Mother Diabetes mellitus Father Hypertension Social History Social History Smoking status: Never smoker Alcohol intake: current Drinks per week: 2 Substance use: never Substance use type: does not use Living arrangements: with family Occupation/Education: occupation 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 Exam Const: General: healthy appearing and no acute distress Nutritional Appearance: well nourished Orientation/consciousness: patient oriented x3 Limitations: no limitations Eyes: Conjunctivae: conjunctivae normal Chest: Chest palpation & inspection: normal inspection of the chest Resp: Effort & Inspection: normal respiratory effort Auscultation: clear to auscultation bilaterally Cardio: Rate: regular rate Rhythm: regular rhythm GI: GI Palp: Yes Soft to palpation Auscultation: normal bowel sounds Skin: Other: Warm tender red right anterior knee no known injuries history of gout Course Course Emergency Course: 30mg IM Toradol administered, advised patient to discontinue colchicine and start indomethacin as prescribed and sent to his pharmacy. Critical Care Time Critical Care Time Critical Care Time: No Discharge Plan Discharge Clinical Impression: Gout Patient Disposition: Home Condition: Stable Instructions: Antibiotic Form, Gout (ED) Additional Instructions: advised patient to take medication as prescribed and follow-up with primary care physician within 1 week for further evaluation treatment. Patient Language: Welsh Prescriptions: New indomethacin 50 mg capsule 50 mg PO TID Qty: 20 0RF Rx Instructions: administer with food or milk No Action ondansetron 4 mg tablet,disintegrating 4 mg PO Q8H Qty: 20 0RF colchicine 0.6 mg capsule 0.6 mg PO DAILY PRN (Reason: foot pain) Qty: 10 0RF metoprolol tartrate 75 mg tablet 75 mg PO DAILY multivitamin Tablet 1 tablet PO DAILY meloxicam 15 mg tablet 15 mg PO DAILY clobetasol 0.05 % cream topical red yeast rice 600 mg capsule 600 mg PO DAILY Rx Instructions: give with meal/snack Airborne Elderberry 1,000 mg-50 mg-35.5 mg tablet, effervescent PO atorvastatin 80 mg tablet 80 mg PO DAILY aspirin 81 mg tablet,delayed release (DR/EC) 81 mg PO EVERY OTHER DAY Qty: 30 5RF lisinopril 10 mg tablet 10 mg PO DAILY Qty: 30 5RF spironolactone 25 mg tablet 25 mg PO DAILY Qty: 30 5RF Follow-up/Referrals: Trisha,Maria Del Carmen Taylor MD [Primary Care Provider, Unknown] Time of Disposition: 18:45
--- OUTSIDE RECORDS SUMMARY | 2024-12-19 18:41 | XMS_ITS | Clinical Summary ---
Author Organization [facility] Address [facility] [place] [address] Care Team Providers Care Cold Roller Name Role Phone Dandy Hoff MD Unavailable Unavail able Shin Gudino MD Primary Care Provider [phone] Suzanna Gregorio MD Unavailable [phone] Allergies No known active allergies Medications ciprofloxacin [...] 12:20 PM CDT Height 175.3 cm (5' 9) 11/21/2016 12:20 PM CDT Body Mass Index [...] age to complete this topic Care Teams Cold Roller Relationship Specialty Start Date End Date Shin Gudino MD [address] [place] [address] PCP - General FAMILY PRACTICE 11/18/16 Dandy Hoff MD CARDIOVASCULAR DISEASE 11/18/16 [place] [address] [place] [address] SURGERY 11/18/16
--- OUTSIDE RECORDS SUMMARY | 2024-12-19 18:41 | XMS_ITS | Clinical Summary ---
Author Organization [facility] Address [address] [facility] [place] [address] Care Team Providers Care Archives Director Name Role Phone Maria Del Carmen Rico MD Primary Care Provider Allergies No known active allergies Medications allopurinoL (ZYLOPRIM) 100 mg tabletIndicatio ns:prevention of acute gout attack Take 1 tablet (100 mg total) by mouth every morning 03/12/2024 Active atorvastatin (LIPITOR) 80 mg tabletIndicatio ns:hyperlipidem ia Take 1 tablet (80 mg total) by mouth every morning 04/21/2024 Active clobetasoL (TEMOVATE) 0.05 % cream APPLY 1 (ONE) GRAM AT BEDTIME 02/09/2024 Active furosemide (LASIX) 40 mg tabletIndicatio ns:Edema,hypert ension Take 1 tablet (40 mg total) by mouth every morning Active lisinopriL (PRINIVIL,ZESTR IL) 10 mg tablet Take 1 tablet (10 mg total) by mouth every morning Active metoprolol tartrate (LOPRESSOR) 75 mg tablet immediate release tabletIndicatio ns:hypertension Take 1 tablet (75 mg total) by mouth every morning 04/22/2024 Active spironolactone (ALDACTONE) 25 mg tabletIndicatio ns:hypertension Take 1 tablet (25 mg total) by mouth every morning Active oxyCODONE (ROXICODONE) 5 mg immediate release tabletIndicatio ns:Pain Take 1 tablet (5 mg total) by mouth every 4 (four) hours as needed for pain (breakthrough ) 30 tablet 08/07/2024 Active traMADoL (ULTRAM) 50 mg tablet Take 1 tablet (50 mg total) by mouth every 8 (eight) hours as needed for pain 42 tablet 08/07/2024 Active aspirin 81 mg enteric coated tabletIndicatio ns:Deep Vein Thrombosis Prevention Take 1 tablet (81 mg total) by mouth 2 (two) times a day 60 tablet 08/08/2024 Active senna-docusate (PERICOLACE) 8.6-50 mgIndications:c onstipation Take 2 tablets by mouth 2 (two) times a day 80 tablet 08/08/2024 Active acetaminophen 500 mg capsuleIndicati ons:Pain Take 2 capsules (1,000 mg total) by mouth every 8 (eight) hours 90 tablet 08/08/2024 Active Active Problems Problem Noted Date Diagnosed Date Right hip pain 06/14/2024 Primary osteoarthritis of right hip 06/14/2024 Primary osteoarthritis of left hip 06/14/2024 Aortic insufficiency 04/30/2024 Hyperlipidemia 04/30/2024 Hypertension 04/30/2024 Fracture of foot 11/12/2008 Fracture of pelvis 11/12/2008 Closed fracture of femur 11/12/2008 Carpal tunnel syndrome 11/12/2008 Encounters Date Type Department Care Team Description 09/24/2024 2:00 PM CDT Office Visit [facility] Medicine Orthopaedic Surgery [address] [place] [address] Medical Office Building [address] [place] [phone] Jerry Tolentino MD Encounter for other specified surgical aftercare (Primary Dx) from Last 3 Months Surgical [...] on file 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 Gender Identity Not on file Sexual Orientation [...] A M CDT Height 172.7 cm (5' 8) 07/08/2024 11:15 AM CDT Body Mass Index 25.81 07/08/2024 11:15 AM CDT Plan of Treatment Health Maintenance Due Date Last Done Comments Colon Cancer Screening-Colonoscopy 1955 Depression Screening 1954 Hepatitis C Screening 1954 DTaP/Tdap/Td Vaccine (1 - Tdap) 1965 Hepatitis B Screening 1972 Pneumococcal vaccine 65+ (1 of 1 - PCV) 2004 Zoster Vaccine (1 of 2) 2004 Well Visit 65+ 11/24/2019 Influenza Vaccine (#1) 2024 Fall Risk Assessment 08/08/2025 08/08/2024 Medical Devices Implanted Type Area Superintendent Compressor Stations Device Identifier Shelf Expiration Date Model / Serial / Lot Gui Right: Femur Screws Left: Foot Description:Plaate and screw s L hip [employer] Shell Acetabular Trident Ii Tritanium E Od52mm Hip 5 Screw Hole Cluster Sterile 702-04-52e - [id number] Implanted:Qty: 1 on 08/07/2024 at [facility] Left: Hip [facility] 03/27/2029 702-04-52E / / [id number] [employer] Liner Acetabular Hip Trident X3 40mm Polyethylene 0 Degree Size E 723-00-40e - [id number] Implanted:Qty: 1 on 08/07/2024 at [facility] Left: Hip [employer] 03/31/2029 723-00-40E / / [id number] [employer] Stem Femoral Hip Collared Insignia 38.7t924iz High Offset Size 6 6675-6694 - [id number] Implanted:Qty: 1 on 08/07/2024 at [facility] Left: Hip [facility] 06/07/2029 2956-6541 / / [id number] [employer] 40mm Hip [place] Taper Head Femoral Biolox Delta 6519-1-040 - [id number] Implanted:Qty: 1 on 08/07/2024 at [facility] Left: Hip [facility] 06/09/2029 6519-1-040 / / [id number] [employer] V40 Hip +4mm Offset [place] Taper Sleeve Adapter Titanium 6519-T-204 - [id number] Implanted:Qty: 1 on 08/07/2024 at [facility] Left: Hip [employer] 05/20/2029 6519-T-204 / / [id number] Explanted Type Area Superintendent Compressor Stations Device Identifier Shelf Expiration Date Model / Serial / Lot [employer] Component Navigation Orthopedic Knee Instrument 132 Degree Emanuel [id number] - [id number] Explanted:Qty: 1 on 08/07/2024 at [facility] Left: Hip [employer] 01/21/2029 [id number] / / [id number] Insurance UHC MEDICARE ADVANTAGE [facility] MEDICARE ADVANTAGE Advance Directives For more information, please contact: [phone] * Full Code (Latest Code Status on File) Date Activated Date Inactivated Comments 08/07/2024 2:22 PM 08/08/2024 2:24 PM Care Teams Archives Director Relationship Specialty Start Date End Date Maria Del Carmen Rico MD [address] [place] [id number] PCP - General Family Medicine 03/18/24
[2024-12-19] MEDS: KETOROLAC 30 MG/ML VIAL (*BKC) IM (18:45)
== END 2024-12-19 18:52 | disposition home or self-care (01) ==
PROVIDERS: Emergency Provider Emergency Medicine; PCP Family Medicine
DX: M10.9 Gout, unspecified (principal); E78.5 Hyperlipidemia, unspecified; I11.0 Hypertensive heart disease with heart failure; I50.9 Heart failure, unspecified
CPT/HCPCS: 96372; 99283; J1885

== ENCOUNTER 2024-12-20 08:54 | Outpatient (CLI) | payer MEDICARE, SELFPAY ==
--- OUTSIDE RECORDS SUMMARY | 2024-12-20 09:11 | XMS_ITS | Clinical Summary ---
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 Gender Identity Not on file Sexual Orientation [...] 08/08/2025 08/08/2024 Medical Devices Implanted Type Area Software Architect Device Identifier Shelf Expiration Date Model / Serial / Lot Gui Right: Femur Screws Left: Foot Description:Plaate and screw s L hip [employer] [employer] Shell Acetabular Trident Ii Tritanium E Od52mm Hip 5 Screw Hole Cluster Sterile 702-04-52e - [id number] Implanted:Qty: 1 on 08/07/2024 at [facility] Left: Hip [facility] 03/27/2029 702-04-52E / / [id number] [employer] Liner Acetabular Hip Trident X3 40mm Polyethylene 0 Degree Size E 723-00-40e - [id number] Implanted:Qty: 1 on 08/07/2024 at [facility] Left: Hip [facility] 03/31/2029 723-00-40E / / [id number] [employer] Stem Femoral Hip Collared Insignia 38.0g756rz High Offset Size 6 6119-9589 - [id number] Implanted:Qty: 1 on 08/07/2024 at [facility] Left: Hip [facility] 06/07/2029 2102-8199 / / [id number] [employer] 40mm Hip [place] Taper Head Femoral Biolox Delta 6519-1-040 - [id number] Implanted:Qty: 1 on 08/07/2024 at [facility] Left: Hip [facility] 06/09/2029 6519-1-040 / / [id number] [employer] V40 Hip +4mm Offset [place] Taper Sleeve Adapter Titanium 6519-T-204 - [id number] Implanted:Qty: 1 on 08/07/2024 at [facility] Left: Hip [facility] [facility] 05/20/2029 6519-T-204 / / [id number] Explanted Type Area Software Architect Device Identifier Shelf Expiration Date Model / Serial / Lot [employer] Component Navigation Orthopedic Knee Instrument 132 Degree Emanuel [id number] - [id number] Explanted:Qty: 1 on 08/07/2024 at [facility] Left: Hip [employer] 01/21/2029 [id number] / / [id number] Insurance UHC MEDICARE ADVANTAGE [facility] MEDICARE ADVANTAGE Advance Directives For more information, please contact: [phone] * Full Code (Latest Code Status on File) Date Activated Date Inactivated Comments 08/07/2024 2:22 PM 08/08/2024 2:24 PM Care Teams Pediatric Licensed Practical Nurse Relationship Specialty Start Date End Date Maria Del Carmen Rico MD [address] [place] [id number] PCP - General Family Medicine 03/18/24
[2024-12-20 10:27] LABS: Cholesterol 186 mg/dL (0-200); HDL Direct 34 mg/dL; Triglycerides 263 mg/dL (<150)
== END 2024-12-20 08:55 | disposition home or self-care (01) ==
LOC: CHSLAB 08:55
PROVIDERS: PCP Family Medicine; Visit Provider Internal Medicine Cardiovascular Disease
DX: E78.5 Hyperlipidemia, unspecified (principal)
CPT/HCPCS: 36415; 80061